=== PATIENT | male | born 1940 | race Caucasian/White ===

== ENCOUNTER 2016-09-12 12:03 | Outpatient (CLI) | payer MEDICARE, MEDICAID | END 2016-09-12 12:04 | disposition home or self-care (01) | DX: J98.11 Atelectasis (principal) ==

== ENCOUNTER 2016-10-17 08:00 | Outpatient (CLI) | payer MEDICARE, MEDICAID | END 2016-10-17 08:01 | disposition home or self-care (01) | DX: N39.41 Urge incontinence (principal) ==

== ENCOUNTER 2016-11-09 08:00 | Outpatient (CLI) | payer MEDICARE, MEDICAID | END 2016-11-09 23:59 | disposition home or self-care (01) | LOC: LAB.R 08:00 | PROVIDERS: ATTEND Nurse Practitioner Family | DX: L03.90 Cellulitis, unspecified (principal) | CPT/HCPCS: 87070; 87205 ==

== ENCOUNTER 2016-12-04 14:30 | Outpatient (CLI) | payer MEDICARE, MEDICAID ==
[2016-12-04 19:11] LABS: BASOPHILS % (AUTO) 0.2 %; EOSINOPHILS # (AUTO) 0.1 10^3/uL (0.0-0.7); EOSINOPHILS % (AUTO) 1.8 %; HCT - HEMATOCRIT 36.2 % (42.0-52.0); HGB - HEMOGLOBIN 11.2 g/dL (14.0-18.0); LYMPHOCYTES # (AUTO) 1.5 10^3/uL (1.5-3.5); LYMPHOCYTES % (AUTO) 20.8 %; MEAN CORPUSCULAR VOLUME 87.2 fL (80.0-94.0); MEAN PLATELET VOLUME 8.9 fL (7.4-11.4); MONOCYTES # (AUTO) 0.6 10^3/uL (0.0-1.0); MONOCYTES % (AUTO) 8.4 %; NEUTROPHILS # (AUTO) 5.1 10^3/uL (1.5-6.6); NEUTROPHILS % (AUTO) 68.8 %; NUCLEATED RED BLOOD CELLS AUTO 0.1 /100WBC; RED BLOOD COUNT 4.15 10^6/uL (4.70-6.10); RED CELL DISTRIBUTION WIDTH 17.5 % (12.0-15.0); UNCORRECTED WHITE BLOOD COUNT 7.4 x10^3/uL; WHITE BLOOD COUNT 7.4 x10^3/uL (4.8-10.8)
[2016-12-04 19:38] LABS: THYROID STIMULATING HORMONE 2.27 uIU/mL (0.34-5.60)
[2016-12-04 19:45] LABS: ALBUMIN/GLOBULIN RATIO 1.3 (1.0-2.2); BILIRUBIN,TOTAL 0.6 mg/dL (0.2-1.0); CALCIUM 8.4 mg/dL (8.5-10.3); CREATININE 1.9 mg/dL (0.6-1.2); POTASSIUM 5.2 mmol/L (3.5-5.0); TOTAL PROTEIN 6.5 g/dL (6.7-8.2)
[2016-12-04 19:58] LABS: HEMOGLOBIN A1C 0.63 g/dL
== END 2016-12-04 14:31 | disposition home or self-care (01) ==
LOC: LAB.S 14:30
PROVIDERS: ATTEND Nurse Practitioner Family
DX: R25.1 Tremor, unspecified (principal); N39.41 Urge incontinence; E10.51 Type 1 diabetes mellitus with diabetic peripheral angiopathy without gangrene; Z12.5 Encounter for screening for malignant neoplasm of prostate; L03.90 Cellulitis, unspecified
CPT/HCPCS: 36415; 80053; 82607; 83036; 83540; 84443; 84466; 85025; G0103; 81001; 84153; 87086

== ENCOUNTER 2016-12-14 09:43 | Outpatient (CLI) | payer MEDICARE, MEDICAID ==
[2016-12-14 17:37] LABS: BILIRUBIN,URINE NEGATIVE (NEGATIVE)
[2016-12-14 17:42] LABS: CALCIUM 8.7 mg/dL (8.5-10.3); CREATININE 1.9 mg/dL (0.6-1.2); POTASSIUM 5.1 mmol/L (3.5-5.0)
[2016-12-14 17:50] LABS: UR CULTURE IF IND NOT INDICATED; WBC,URINE 0-3 /HPF (0-3)
== END 2016-12-14 09:44 | disposition home or self-care (01) ==
LOC: LAB.F 09:43
PROVIDERS: ATTEND Nurse Practitioner Family
DX: N18.9 Chronic kidney disease, unspecified (principal); N39.41 Urge incontinence
CPT/HCPCS: 36415; 80048; 81001; 87086

== ENCOUNTER 2017-01-01 08:00 | Outpatient (CLI) | payer MEDICARE, MEDICAID ==
[2017-01-01 18:48] LABS: BASOPHILS % (AUTO) 0.5 %; EOSINOPHILS # (AUTO) 0.1 10^3/uL (0.0-0.7); HGB - HEMOGLOBIN 12.4 g/dL (14.0-18.0); LYMPHOCYTES # (AUTO) 1.9 10^3/uL (1.5-3.5); LYMPHOCYTES % (AUTO) 24.9 %; MEAN CORPUSCULAR VOLUME 90.4 fL (80.0-94.0); MEAN PLATELET VOLUME 8.6 fL (7.4-11.4); MONOCYTES # (AUTO) 0.6 10^3/uL (0.0-1.0); MONOCYTES % (AUTO) 8.7 %; NEUTROPHILS # (AUTO) 4.8 10^3/uL (1.5-6.6); NEUTROPHILS % (AUTO) 63.9 %; NUCLEATED RED BLOOD CELLS AUTO 0.2 /100WBC; RED BLOOD COUNT 4.42 10^6/uL (4.70-6.10); RED CELL DISTRIBUTION WIDTH 19.6 % (12.0-15.0); UNCORRECTED WHITE BLOOD COUNT 7.5 x10^3/uL; WHITE BLOOD COUNT 7.5 x10^3/uL (4.8-10.8)
[2017-01-01 19:52] LABS: CALCIUM 8.8 mg/dL (8.5-10.3); CREATININE 2.2 mg/dL (0.6-1.2); POTASSIUM 5.6 mmol/L (3.5-5.0)
== END 2017-01-01 08:01 | disposition home or self-care (01) ==
LOC: LAB.S 08:00
PROVIDERS: ATTEND Nurse Practitioner Family
DX: D64.9 Anemia, unspecified (principal); E87.5 Hyperkalemia
CPT/HCPCS: 36415; 80048; 82043; 83540; 84466; 85025

== ENCOUNTER 2017-01-08 08:00 | Outpatient (CLI) | payer MEDICARE, MEDICAID | END 2017-01-08 08:01 | disposition home or self-care (01) | LOC: LAB.S 08:00 | PROVIDERS: ATTEND Nurse Practitioner Family | DX: E87.5 Hyperkalemia (principal) | CPT/HCPCS: 36415 ==

== ENCOUNTER 2017-01-09 08:00 | Outpatient (CLI) | payer MEDICARE, MEDICAID | END 2017-01-09 08:01 | disposition home or self-care (01) | LOC: LAB.R 08:00 | PROVIDERS: ATTEND Nurse Practitioner Family | DX: S80.822A Blister (nonthermal), left lower leg, initial encounter (principal) | CPT/HCPCS: 87070; 87205 ==

== ENCOUNTER 2017-01-19 10:23 | Outpatient (CLI) | payer MEDICARE, MEDICAID ==
[2017-01-19 17:53] LABS: BASOPHILS % (AUTO) 0.4 %; EOSINOPHILS # (AUTO) 0.2 10^3/uL (0.0-0.7); EOSINOPHILS % (AUTO) 3.1 %; HCT - HEMATOCRIT 40.8 % (42.0-52.0); HGB - HEMOGLOBIN 12.9 g/dL (14.0-18.0); LYMPHOCYTES # (AUTO) 1.8 10^3/uL (1.5-3.5); LYMPHOCYTES % (AUTO) 24.7 %; MEAN CORPUSCULAR HEMOGLOBIN 27.8 pg (27.0-31.0); MEAN CORPUSCULAR HGB CONC 31.7 g/dL (32.0-36.0); MEAN CORPUSCULAR VOLUME 87.7 fL (80.0-94.0); MEAN PLATELET VOLUME 8.6 fL (7.4-11.4); MONOCYTES # (AUTO) 0.6 10^3/uL (0.0-1.0); MONOCYTES % (AUTO) 8.6 %; NEUTROPHILS # (AUTO) 4.5 10^3/uL (1.5-6.6); NEUTROPHILS % (AUTO) 63.2 %; RED BLOOD COUNT 4.65 10^6/uL (4.70-6.10); UNCORRECTED WHITE BLOOD COUNT 7.2 x10^3/uL; WHITE BLOOD COUNT 7.2 x10^3/uL (4.8-10.8)
[2017-01-19 18:45] LABS: BUN - BLOOD UREA NITROGEN 31 mg/dL (6-20); CALCIUM 8.9 mg/dL (8.5-10.3); CARBON DIOXIDE - CO2 32 mmol/L (21-32); CHLORIDE 101 mmol/L (101-111); CHOL/HDL RATIO 2.1 (<5.0); CHOLESTEROL 88 mg/dL; CREATININE 1.7 mg/dL (0.6-1.2); GFR - MDRD 39 (>89); GLUCOSE 128 mg/dL (70-100); HDL CHOLESTEROL 41 mg/dL; IRON 48 ug/dL (45-182); LDL/HDL RATIO 0.8 (<3.6); POTASSIUM 4.5 mmol/L (3.5-5.0); SODIUM 140 mmol/L (135-145); TOTAL IRON BINDING CAPACITY 337 ug/dL (250-450); TRANSFERRIN 241 mg/dL (180-329); TRIGLYCERIDES 80 mg/dL; URIC ACID 4.3 mg/dL (2.6-7.2); VLDL CHOLESTEROL 16 mg/dL
== END 2017-01-19 10:24 | disposition home or self-care (01) ==
LOC: LAB.F 10:23
PROVIDERS: ATTEND Nurse Practitioner Family
DX: E87.5 Hyperkalemia (principal); D64.9 Anemia, unspecified; I50.9 Heart failure, unspecified; E78.5 Hyperlipidemia, unspecified; R06.02 Shortness of breath; M10.9 Gout, unspecified
CPT/HCPCS: 36415; 80048; 80061; 83540; 83880; 84466; 84550; 85025

== ENCOUNTER 2017-01-30 15:26 | Outpatient (CLI) | payer MEDICARE, MEDICAID | END 2017-01-30 15:27 | disposition home or self-care (01) | LOC: RT.S 15:26 | PROVIDERS: ATTEND Internal Medicine Cardiovascular Disease | DX: I25.10 Atherosclerotic heart disease of native coronary artery without angina pectoris (principal) | CPT/HCPCS: 93005 ==

== ENCOUNTER 2017-02-07 10:35 | Outpatient (CLI) | payer MEDICARE, MEDICAID | END 2017-02-07 10:36 | disposition home or self-care (01) | LOC: DI 10:35 | PROVIDERS: ATTEND Internal Medicine Cardiovascular Disease | DX: I50.20 Unspecified systolic (congestive) heart failure (principal); I25.10 Atherosclerotic heart disease of native coronary artery without angina pectoris; R60.0 Localized edema; I51.7 Cardiomegaly; I48.91 Unspecified atrial fibrillation; Z79.899 Other long term (current) drug therapy | CPT/HCPCS: 36415; 80048; 83735; 93306 ==

== ENCOUNTER 2017-02-07 11:51 | Outpatient (CLI) | payer MEDICARE, MEDICAID ==
[2017-02-07 12:29] LABS: MAGNESIUM 1.4 mg/dL (1.7-2.8)
[2017-02-07 12:41] LABS: CALCIUM 8.9 mg/dL (8.5-10.3); CREATININE 2.2 mg/dL (0.6-1.2); POTASSIUM 4.4 mmol/L (3.5-5.0)
== END 2017-02-07 11:52 | disposition home or self-care (01) ==
LOC: LAB 11:51
PROVIDERS: ATTEND Internal Medicine Cardiovascular Disease
DX: I48.91 Unspecified atrial fibrillation (principal); I25.10 Atherosclerotic heart disease of native coronary artery without angina pectoris; I50.9 Heart failure, unspecified; Z79.899 Other long term (current) drug therapy
CPT/HCPCS: 36415; 80048; 83735

== ENCOUNTER 2017-02-19 13:23 | Outpatient (CLI) | payer MEDICARE, MEDICAID ==
--- NOTE | 2017-02-19 14:59 | XRAY Report ---
TWO-VIEW CHEST: 02/19/2017 CLINICAL INDICATION: Pulmonary hypertension. COMPARISON: 09/12/2016, 02/16/2012 FINDINGS: Frontal and lateral views of the chest demonstrate a mildly enlarged cardiac silhouette. Basilar linear opacities persist, compatible with atelectasis or scarring. No focal consolidation or pulmonary vascular congestion is seen. No effusion or pneumothorax is present. IMPRESSION: CARDIOMEGALY AND STABLE BASILAR SCARRING OR ATELECTASIS. JOB #: [id number] EXT JOB #:[id number]
== END 2017-02-19 13:24 | disposition home or self-care (01) ==
LOC: DI.S 13:23
PROVIDERS: ATTEND Internal Medicine Cardiovascular Disease
DX: I51.7 Cardiomegaly (principal)
CPT/HCPCS: 71020

== ENCOUNTER 2017-03-05 10:17 | Outpatient (CLI) | payer MEDICARE, MEDICAID | END 2017-03-05 10:18 | disposition home or self-care (01) | LOC: LAB.S 10:17 | PROVIDERS: ATTEND Internal Medicine | DX: I48.3 Typical atrial flutter (principal) | CPT/HCPCS: 85610 ==

== ENCOUNTER 2017-03-08 14:08 | Outpatient (CLI) | payer MEDICARE, MEDICAID | END 2017-03-08 14:09 | disposition home or self-care (01) | LOC: LAB.F 14:08 | PROVIDERS: ATTEND Internal Medicine | DX: I48.3 Typical atrial flutter (principal) | CPT/HCPCS: 85610 ==

== ENCOUNTER 2017-03-15 10:08 | Outpatient (CLI) | payer MEDICARE, MEDICAID ==
[2017-03-16 07:53] LABS: INR 1.5 (0.8-1.2); PT - PROTHROMBIN TIME 16.4 secs (9.9-12.6)
== END 2017-03-15 10:09 | disposition home or self-care (01) ==
LOC: LAB.F 10:08
PROVIDERS: ATTEND Internal Medicine
DX: I48.3 Typical atrial flutter (principal)
CPT/HCPCS: 36415; 85610

== ENCOUNTER 2017-03-19 08:00 | Outpatient (CLI) | payer MEDICARE, MEDICAID | END 2017-03-19 08:01 | disposition home or self-care (01) | LOC: LAB.S 08:00 | PROVIDERS: ATTEND Internal Medicine | DX: I48.3 Typical atrial flutter (principal) | CPT/HCPCS: 85610 ==

== ENCOUNTER 2017-03-26 10:37 | Outpatient (CLI) | payer MEDICARE, MEDICAID | END 2017-03-26 10:38 | LOC: LAB.S 10:37 | PROVIDERS: ATTEND Internal Medicine | DX: I48.3 Typical atrial flutter (principal) | CPT/HCPCS: 85610 ==

== ENCOUNTER 2017-04-02 08:00 | Outpatient (CLI) | payer MEDICARE, MEDICAID ==
[2017-04-02 18:12] LABS: BASOPHILS % (AUTO) 0.4 %; EOSINOPHILS # (AUTO) 0.1 10^3/uL (0.0-0.7); EOSINOPHILS % (AUTO) 1.9 %; HCT - HEMATOCRIT 39.4 % (42.0-52.0); HGB - HEMOGLOBIN 12.5 g/dL (14.0-18.0); LYMPHOCYTES # (AUTO) 1.7 10^3/uL (1.5-3.5); LYMPHOCYTES % (AUTO) 21.8 %; MEAN CORPUSCULAR HEMOGLOBIN 28.6 pg (27.0-31.0); MEAN CORPUSCULAR HGB CONC 31.7 g/dL (32.0-36.0); MEAN CORPUSCULAR VOLUME 90.2 fL (80.0-94.0); MEAN PLATELET VOLUME 8.5 fL (7.4-11.4); MONOCYTES # (AUTO) 0.7 10^3/uL (0.0-1.0); MONOCYTES % (AUTO) 9.4 %; NEUTROPHILS # (AUTO) 5.1 10^3/uL (1.5-6.6); NEUTROPHILS % (AUTO) 66.5 %; NUCLEATED RED BLOOD CELLS AUTO 0.2 /100WBC; RED BLOOD COUNT 4.36 10^6/uL (4.70-6.10); RED CELL DISTRIBUTION WIDTH 18.9 % (12.0-15.0); UNCORRECTED WHITE BLOOD COUNT 7.7 x10^3/uL; WHITE BLOOD COUNT 7.7 x10^3/uL (4.8-10.8)
[2017-04-02 18:31] LABS: ALBUMIN/GLOBULIN RATIO 1.1 (1.0-2.2); BILIRUBIN,TOTAL 0.6 mg/dL (0.2-1.0); BUN - BLOOD UREA NITROGEN 52 mg/dL (6-20); CALCIUM 8.3 mg/dL (8.5-10.3); CARBON DIOXIDE - CO2 29 mmol/L (21-32); CHLORIDE 99 mmol/L (101-111); CREATININE 2.1 mg/dL (0.6-1.2); GFR - MDRD 31 (>89); GLUCOSE 142 mg/dL (70-100); IRON 32 ug/dL (45-182); POTASSIUM 4.3 mmol/L (3.5-5.0); SODIUM 138 mmol/L (135-145); TOTAL IRON BINDING CAPACITY 255 ug/dL (250-450); TOTAL PROTEIN 6.6 g/dL (6.7-8.2); TRANSFERRIN 182 mg/dL (180-329)
[2017-04-02 19:26] LABS: HEMOGLOBIN A1C 0.71 g/dL
== END 2017-04-02 08:01 | disposition home or self-care (01) ==
LOC: LAB.S 08:00
PROVIDERS: ATTEND Internal Medicine
DX: I48.3 Typical atrial flutter (principal); D64.9 Anemia, unspecified; E10.21 Type 1 diabetes mellitus with diabetic nephropathy
CPT/HCPCS: 36415; 80053; 82043; 83036; 83540; 84443; 84466; 85025; 85610

== ENCOUNTER 2017-04-24 10:00 | Outpatient (CLI) | payer MEDICARE, MEDICAID | END 2017-04-24 10:01 | disposition home or self-care (01) | LOC: LAB.R 10:00 | PROVIDERS: ATTEND Nurse Practitioner Family | DX: E10.21 Type 1 diabetes mellitus with diabetic nephropathy (principal) | CPT/HCPCS: 82043 ==

== ENCOUNTER 2017-04-24 11:07 | Outpatient (CLI) | payer MEDICARE, MEDICAID | END 2017-04-24 11:08 | disposition home or self-care (01) | LOC: LAB.F 11:07 | PROVIDERS: ATTEND Internal Medicine | DX: I48.3 Typical atrial flutter (principal); E10.21 Type 1 diabetes mellitus with diabetic nephropathy | CPT/HCPCS: 82043; 85610 ==

== ENCOUNTER 2017-05-14 08:00 | Outpatient (CLI) | payer MEDICARE, MEDICAID | END 2017-05-14 08:01 | disposition home or self-care (01) | LOC: LAB.S 08:00 | PROVIDERS: ATTEND Internal Medicine | DX: I48.3 Typical atrial flutter (principal) | CPT/HCPCS: 85610 ==

== ENCOUNTER 2017-06-18 10:31 | Outpatient (CLI) | payer MEDICARE, MEDICAID ==
[2017-06-18 18:36] LABS: BASOPHILS % (AUTO) 0.3 %; EOSINOPHILS # (AUTO) 0.2 10^3/uL (0.0-0.7); EOSINOPHILS % (AUTO) 2.5 %; HGB - HEMOGLOBIN 12.1 g/dL (14.0-18.0); LYMPHOCYTES # (AUTO) 2.4 10^3/uL (1.5-3.5); LYMPHOCYTES % (AUTO) 31.1 %; MEAN CORPUSCULAR HEMOGLOBIN 29.4 pg (27.0-31.0); MEAN CORPUSCULAR HGB CONC 31.6 g/dL (32.0-36.0); MEAN PLATELET VOLUME 8.1 fL (7.4-11.4); MONOCYTES # (AUTO) 0.7 10^3/uL (0.0-1.0); MONOCYTES % (AUTO) 9.5 %; NEUTROPHILS # (AUTO) 4.3 10^3/uL (1.5-6.6); NEUTROPHILS % (AUTO) 56.6 %; PLT - PLATELET COUNT 165 10^3/uL (130-450); RED BLOOD COUNT 4.11 10^6/uL (4.70-6.10); RED CELL DISTRIBUTION WIDTH 17.7 % (12.0-15.0); WHITE BLOOD COUNT 7.6 x10^3/uL (4.8-10.8)
[2017-06-18 19:12] LABS: ALBUMIN 3.5 g/dL (3.2-5.5); ALBUMIN/GLOBULIN RATIO 1.2 (1.0-2.2); ALKALINE PHOSPHATASE 57 IU/L (42-121); ALT ALANINE AMINOTRANSFERASE 11 IU/L (10-60); AST ASPARTATE AMINOTRANSFERASE 17 IU/L (10-42); BILIRUBIN,TOTAL 0.4 mg/dL (0.2-1.0); BUN - BLOOD UREA NITROGEN 36 mg/dL (6-20); CALCIUM 8.5 mg/dL (8.5-10.3); CARBON DIOXIDE - CO2 28 mmol/L (21-32); CHLORIDE 99 mmol/L (101-111); CHOL/HDL RATIO 2.2 (<5.0); CHOLESTEROL 101 mg/dL; CREATININE 2.1 mg/dL (0.6-1.2); GFR - MDRD 31 (>89); HDL CHOLESTEROL 46 mg/dL; LDL CHOLESTEROL,CALCULATED 36 mg/dL; LDL/HDL RATIO 0.8 (<3.6); SODIUM 139 mmol/L (135-145); TOTAL PROTEIN 6.4 g/dL (6.7-8.2); VLDL CHOLESTEROL 19 mg/dL
[2017-06-18 19:15] LABS: GLUCOSE 56 mg/dL (70-100)
[2017-06-18 19:51] LABS: HB2 TOTAL 12.7 g/dL; HEMOGLOBIN A1C 0.6 g/dL; HEMOGLOBIN A1C % 6.5 % (4.6-6.2)
== END 2017-06-18 10:32 | disposition home or self-care (01) ==
LOC: LAB.S 10:31
PROVIDERS: ATTEND Nurse Practitioner Family
DX: E10.21 Type 1 diabetes mellitus with diabetic nephropathy (principal); I48.3 Typical atrial flutter
CPT/HCPCS: 36415; 80053; 80061; 83036; 85025; 85610

== ENCOUNTER 2017-07-09 08:00 | Outpatient (CLI) | payer MEDICARE, MEDICAID | END 2017-07-09 08:01 | disposition home or self-care (01) | LOC: LAB.S 08:00 | PROVIDERS: ATTEND Internal Medicine | DX: I48.3 Typical atrial flutter (principal) | CPT/HCPCS: 85610 ==

== ENCOUNTER 2017-08-13 09:53 | Outpatient (CLI) | payer MEDICARE, MEDICAID ==
[2017-08-13 17:39] LABS: BASOPHILS % (AUTO) 0.4 %; EOSINOPHILS # (AUTO) 0.2 10^3/uL (0.0-0.7); EOSINOPHILS % (AUTO) 3.4 %; HGB - HEMOGLOBIN 12.5 g/dL (14.0-18.0); LYMPHOCYTES # (AUTO) 2.3 10^3/uL (1.5-3.5); LYMPHOCYTES % (AUTO) 32.2 %; MEAN CORPUSCULAR HEMOGLOBIN 29.1 pg (27.0-31.0); MEAN CORPUSCULAR HGB CONC 31.5 g/dL (32.0-36.0); MEAN CORPUSCULAR VOLUME 92.4 fL (80.0-94.0); MEAN PLATELET VOLUME 8.3 fL (7.4-11.4); MONOCYTES # (AUTO) 0.6 10^3/uL (0.0-1.0); MONOCYTES % (AUTO) 9.1 %; NEUTROPHILS # (AUTO) 3.9 10^3/uL (1.5-6.6); NEUTROPHILS % (AUTO) 54.9 %; PLT - PLATELET COUNT 157 10^3/uL (130-450); RED BLOOD COUNT 4.28 10^6/uL (4.70-6.10); RED CELL DISTRIBUTION WIDTH 16.4 % (12.0-15.0)
[2017-08-13 18:14] LABS: ALBUMIN 3.7 g/dL (3.2-5.5); ALBUMIN/GLOBULIN RATIO 1.2 (1.0-2.2); ALKALINE PHOSPHATASE 61 IU/L (42-121); ALT ALANINE AMINOTRANSFERASE 11 IU/L (10-60); AST ASPARTATE AMINOTRANSFERASE 17 IU/L (10-42); BILIRUBIN,TOTAL 0.2 mg/dL (0.2-1.0); BUN - BLOOD UREA NITROGEN 39 mg/dL (6-20); CALCIUM 8.7 mg/dL (8.5-10.3); CARBON DIOXIDE - CO2 29 mmol/L (21-32); CHLORIDE 103 mmol/L (101-111); CHOL/HDL RATIO 2.2 (<5.0); CHOLESTEROL 104 mg/dL; CREATININE 1.8 mg/dL (0.6-1.2); GFR - MDRD 37 (>89); GLUCOSE 82 mg/dL (70-100); HDL CHOLESTEROL 48 mg/dL; LDL CHOLESTEROL,CALCULATED 33 mg/dL; LDL/HDL RATIO 0.7 (<3.6); SODIUM 139 mmol/L (135-145); TOTAL PROTEIN 6.9 g/dL (6.7-8.2); VLDL CHOLESTEROL 23 mg/dL
[2017-08-13 19:05] LABS: HB2 TOTAL 13.2 g/dL; HEMOGLOBIN A1C 0.61 g/dL; HEMOGLOBIN A1C % 6.4 % (4.6-6.2)
== END 2017-08-13 09:54 | disposition home or self-care (01) ==
LOC: LAB.S 09:53
PROVIDERS: ATTEND Nurse Practitioner Family
DX: E10.21 Type 1 diabetes mellitus with diabetic nephropathy (principal)
CPT/HCPCS: 36415; 80053; 80061; 83036; 83721; 85025

== ENCOUNTER 2017-11-07 12:15 | Outpatient (CLI) | payer MEDICARE, MEDICAID | END 2017-11-07 12:16 | LOC: LAB.R 12:15 | PROVIDERS: ATTEND Nurse Practitioner Family | DX: L97.229 Non-pressure chronic ulcer of left calf with unspecified severity (principal) | CPT/HCPCS: 87070; 87205 ==

== ENCOUNTER 2017-11-12 11:28 | Outpatient (CLI) | payer MEDICARE, MEDICAID ==
[2017-11-12 17:49] LABS: BASOPHILS % (AUTO) 0.3 %; EOSINOPHILS # (AUTO) 0.2 10^3/uL (0.0-0.7); EOSINOPHILS % (AUTO) 2.6 %; HGB - HEMOGLOBIN 12.6 g/dL (14.0-18.0); LYMPHOCYTES % (AUTO) 24.3 %; MEAN CORPUSCULAR HGB CONC 31.3 g/dL (32.0-36.0); MEAN CORPUSCULAR VOLUME 92.5 fL (80.0-94.0); MEAN PLATELET VOLUME 7.9 fL (7.4-11.4); MONOCYTES # (AUTO) 0.6 10^3/uL (0.0-1.0); MONOCYTES % (AUTO) 7.9 %; NEUTROPHILS # (AUTO) 5.2 10^3/uL (1.5-6.6); NEUTROPHILS % (AUTO) 64.9 %; PLT - PLATELET COUNT 169 10^3/uL (130-450); RED BLOOD COUNT 4.35 10^6/uL (4.70-6.10); RED CELL DISTRIBUTION WIDTH 15.6 % (12.0-15.0)
[2017-11-12 19:02] LABS: ALBUMIN 3.7 g/dL (3.2-5.5); ALBUMIN/GLOBULIN RATIO 1.3 (1.0-2.2); BILIRUBIN,TOTAL 0.5 mg/dL (0.2-1.0); CALCIUM 8.2 mg/dL (8.5-10.3); CREATININE 1.7 mg/dL (0.6-1.2); TOTAL PROTEIN 6.6 g/dL (6.7-8.2)
[2017-11-12 19:50] LABS: HB2 TOTAL 13.9 g/dL; HEMOGLOBIN A1C 0.65 g/dL; HEMOGLOBIN A1C % 6.4 % (4.6-6.2)
== END 2017-11-12 11:29 | disposition home or self-care (01) ==
LOC: LAB.S 11:28
PROVIDERS: ATTEND Nurse Practitioner Family
DX: E87.5 Hyperkalemia (principal); E10.21 Type 1 diabetes mellitus with diabetic nephropathy; R06.02 Shortness of breath
CPT/HCPCS: 36415; 80053; 83036; 83880; 85025

== ENCOUNTER 2018-03-18 09:47 | Outpatient (CLI) | payer MEDICARE, MEDICAID ==
[2018-03-18 18:01] LABS: ALBUMIN 3.5 g/dL (3.2-5.5); ALBUMIN/GLOBULIN RATIO 1.3 (1.0-2.2); ALKALINE PHOSPHATASE 62 IU/L (42-121); ALT ALANINE AMINOTRANSFERASE < 10 IU/L (10-60); AST ASPARTATE AMINOTRANSFERASE 17 IU/L (10-42); BILIRUBIN,TOTAL 0.5 mg/dL (0.2-1.0); BUN - BLOOD UREA NITROGEN 42 mg/dL (6-20); CALCIUM 8.3 mg/dL (8.5-10.3); CARBON DIOXIDE - CO2 32 mmol/L (21-32); CHLORIDE 97 mmol/L (101-111); CREATININE 1.9 mg/dL (0.6-1.2); GFR - MDRD 34 (>89); GLUCOSE 115 mg/dL (70-100); SODIUM 138 mmol/L (135-145); TOTAL PROTEIN 6.1 g/dL (6.7-8.2); URIC ACID 6.7 mg/dL (2.6-7.2)
[2018-03-18 19:17] LABS: HB2 TOTAL 14.6 g/dL; HEMOGLOBIN A1C 0.64 g/dL; HEMOGLOBIN A1C % 6.2 % (4.6-6.2)
== END 2018-03-18 09:48 | disposition home or self-care (01) ==
LOC: LAB.S 09:47
PROVIDERS: ATTEND Nurse Practitioner Family
DX: E10.51 Type 1 diabetes mellitus with diabetic peripheral angiopathy without gangrene (principal); R06.02 Shortness of breath; Z12.5 Encounter for screening for malignant neoplasm of prostate; M10.9 Gout, unspecified
CPT/HCPCS: 36415; 80053; 83036; 83880; 84550; G0103; 82043; 84153

== ENCOUNTER 2018-07-03 10:52 | Outpatient (CLI) | payer MEDICARE, MEDICAID | END 2018-07-03 10:53 | disposition home or self-care (01) | LOC: RT.S 10:52 | PROVIDERS: ATTEND Nurse Practitioner Family | DX: Z51.81 Encounter for therapeutic drug level monitoring (principal); Z79.891 Long term (current) use of opiate analgesic | CPT/HCPCS: 93005 ==

== ENCOUNTER 2018-07-29 08:00 | Outpatient (CLI) | payer MEDICARE, MEDICAID ==
[2018-07-29 18:09] LABS: ALBUMIN 3.9 g/dL (3.2-5.5); ALBUMIN/GLOBULIN RATIO 1.3 (1.0-2.2); ALKALINE PHOSPHATASE 64 IU/L (42-121); ALT ALANINE AMINOTRANSFERASE 11 IU/L (10-60); AST ASPARTATE AMINOTRANSFERASE 19 IU/L (10-42); BILIRUBIN,TOTAL 0.6 mg/dL (0.2-1.0); BUN - BLOOD UREA NITROGEN 45 mg/dL (6-20); CALCIUM 8.7 mg/dL (8.5-10.3); CARBON DIOXIDE - CO2 29 mmol/L (21-32); CHLORIDE 100 mmol/L (101-111); CHOL/HDL RATIO 2.5 (<5.0); CHOLESTEROL 114 mg/dL; CREATININE 1.8 mg/dL (0.6-1.2); GFR - MDRD 37 (>89); GLUCOSE 102 mg/dL (70-100); HDL CHOLESTEROL 46 mg/dL; LDL CHOLESTEROL,CALCULATED 48 mg/dL; SODIUM 140 mmol/L (135-145); VLDL CHOLESTEROL 20 mg/dL
[2018-07-29 18:52] LABS: HEMOGLOBIN A1C 0.79 g/dL; HEMOGLOBIN A1C % 6.4 % (4.6-6.2)
== END 2018-07-29 23:59 | disposition home or self-care (01) ==
LOC: LAB.S 08:00
PROVIDERS: ATTEND Nurse Practitioner Family
DX: E10.21 Type 1 diabetes mellitus with diabetic nephropathy (principal)
CPT/HCPCS: 36415; 80053; 80061; 82043; 83036; 83721

== ENCOUNTER 2019-01-13 | Outpatient (CLI) | payer MEDICARE, MEDICAID | END 2019-01-13 09:42 | disposition home or self-care (01) | DX: E10.51 Type 1 diabetes mellitus with diabetic peripheral angiopathy without gangrene (principal) ==

== ENCOUNTER 2019-03-24 11:53 | Outpatient (CLI) | payer MEDICARE, MEDICAID ==
[2019-03-24 17:24] LABS: CALCIUM 9.1 mg/dL (8.5-10.3); URIC ACID 10.3 mg/dL (2.6-7.2)
[2019-03-24 17:25] LABS: HGB - HEMOGLOBIN 13.7 g/dL (14.0-18.0); MEAN CORPUSCULAR HEMOGLOBIN 29.4 pg (27.0-31.0); MEAN CORPUSCULAR HGB CONC 30.4 g/dL (32.0-36.0); MEAN CORPUSCULAR VOLUME 96.8 fL (80.0-94.0); MEAN PLATELET VOLUME 10.3 fL (7.4-11.4); RED BLOOD COUNT 4.66 10^6/uL (4.70-6.10); RED CELL DISTRIBUTION WIDTH 13.9 % (12.0-15.0); WHITE BLOOD COUNT 8.4 x10^3/uL (4.8-10.8)
[2019-03-24 17:36] LABS: CREATININE,URINE 43.4 mg/dL
[2019-03-24 17:37] LABS: TOTAL PROTEIN,URINE TIMED < 6 mg/dL
== END 2019-03-24 11:54 | disposition home or self-care (01) ==
LOC: LAB.S 11:53
PROVIDERS: ATTEND Internal Medicine Nephrology
DX: N05.9 Unspecified nephritic syndrome with unspecified morphologic changes (principal); D70.9 Neutropenia, unspecified; D63.1 Anemia in chronic kidney disease; M10.00 Idiopathic gout, unspecified site; R80.9 Proteinuria, unspecified
CPT/HCPCS: 36415; 80048; 82570; 84156; 84550; 85027

== ENCOUNTER 2019-11-27 20:51 | Outpatient (CLI) | payer MEDICARE, MEDICAID | END 2019-11-27 23:59 | disposition critical access hospital (66) | LOC: EMS 20:51 | PROVIDERS: ATTEND Surgery | DX: R06.02 Shortness of breath (principal) | CPT/HCPCS: A0425; A0427 ==

== ENCOUNTER 2019-11-27 21:25 | Inpatient (IN) | payer MEDICARE, MEDICAID ==
--- NOTE | 2019-11-27 21:15 | ED Physician Documentation ---
History of Present Illness - Stated complaint Stated Complaint: SOA/COPD - History obtained from History obtained from: Patient (Patient is an 79-year-old male who is been home for the last 3 months with a history of COPD, chronic kidney disease. Today he presents with worsening shortness of breath he was 80% on arrival. Denies chest pain.Reports leg swelling.) Review of Systems Constitutional: reports: Reviewed and negative Eyes: reports: Reviewed and negative Ears: reports: Reviewed and negative Nose: reports: Reviewed and negative Throat: reports: Reviewed and negative Cardiac: reports: Pedal edema Respiratory: reports: Dyspnea GI: reports: Reviewed and negative : reports: Reviewed and negative Skin: reports: Reviewed and negative Musculoskeletal: reports: Reviewed and negative Neurologic: reports: Reviewed and negative Psychiatric: reports: Reviewed and negative Endocrine: reports: Reviewed and negative Immunocompromised: reports: Reviewed and negative PD PAST MEDICAL HISTORY - Present Medications Home Medications: Ambulatory Orders Medication Instructions Recorded Confirmed Acetaminophen/Cod 300/30 [Tylenol 1 each PO Q4-6H PRN 08/11/14 11/27/19 #3] Aspirin [Children's Aspirin] 81 mg PO DAILY 08/11/14 11/27/19 Atorvastatin [Lipitor] 20 mg PO DAILY 08/11/14 11/27/19 Brimonidine Tartrate [Alphagan P] 2 drops OP DAILY 08/11/14 11/27/19 Calcium Citrate/Vitamin D3 1 each PO DAILY 08/11/14 11/27/19 [Calcium Citrate - Vit D Tablet] Enalapril Maleate [Vasotec] 20 mg PO DAILY 08/11/14 11/27/19 Fluoxetine HCl [Prozac] 40 mg PO DAILY 08/11/14 11/27/19 Insulin Aspart [Novolog] 35 - 45 units SQ AC 08/11/14 11/27/19 Insulin Glargine [Lantus] 35 units SQ BID 08/11/14 11/27/19 Latanoprost 2.5 ml OP DAILY 08/11/14 11/27/19 Methadone HCl [Dolophine HCl] 20 mg PO DAILY 08/11/14 11/27/19 Metoprolol Tartrate [Lopressor] 12.5 mg PO DAILY 08/11/14 11/27/19 Omeprazole [Prilosec] 20 mg PO DAILY 08/11/14 11/27/19 allopurinoL [Allopurinol] 50 mg PO DAILY 08/11/14 11/27/19 amLODIPine [Norvasc] 5 mg PO DAILY 08/11/14 11/27/19 Albuterol Sulfate [Albuterol 2 puffs INH Q4H PRN 11/19/19 11/27/19 Sulfate Hfa] Furosemide [Lasix] 20 mg PO QPM 11/19/19 11/27/19 Furosemide [Lasix] 40 mg PO DAILY 11/19/19 11/27/19 Pregabalin [Lyrica] 100 mg PO TID 11/19/19 11/27/19 Umeclidinium Brm/Vilanterol Tr 1 puffs INH DAILY 11/19/19 11/27/19 [Anoro Ellipta 62.5-25 Mcg INH] - Allergies Allergies/Adverse Reactions: Allergies Allergy/AdvReac Type Severity Reaction Status Date / Time No Known Drug Allergies Allergy Verified 11/27/19 21:32 PD ED PE NORMAL - Vitals Vital signs reviewed: Yes - General General: No acute distress, Well developed/nourished, Other (On oxygen on arrival) - HEENT HEENT: Atraumatic, PERRL - Neck Neck: Supple, no meningeal sign - Cardiac Cardiac: RRR, No murmur, Strong equal pulses - Respiratory Respiratory: Other (Crackles at the bases bilaterally minimal wheezing in bilateral lung amato) - Abdomen Abdomen: Normal bowel sounds, Soft, Non tender, Non distended, No organomegaly, Other (Obese, no midline abdominal pulsatile mass) - Back Back: No CVA TTP, No spinal TTP - Derm Derm: Normal color, Warm and dry, No rash, Other (2+ bilateral lower extremity pitting edema) - Extremities Extremities: No deformity, Other (2+ bilateral lower extremity pitting edema) - 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, No motor deficit, No sensory deficit, Normal speech - Psych Psych: Normal mood, Normal affect Results - Vitals Vitals: Vital Signs - 24 hr 11/27/19 11/27/19 11/27/19 21:32 21:36 22:11 Temperature 36.9 C Heart Rate 88 88 90 Respiratory 18 18 14 Rate Blood Pressure 144/75 H 144/75 H O2 Saturation 100 100 11/27/19 22:27 Temperature Heart Rate 86 Respiratory 16 Rate Blood Pressure 135/92 H O2 Saturation 100 Oxygen O2 Source Nasal cannula Oxygen Flow Rate 4 - EKG (time done) 21:28 Rate: Other (no stemi) - Labs Labs: Laboratory Tests 11/27/19 11/27/19 11/27/19 22:37 22:37 22:37 WBC 7.8 RBC 3.82 L Hgb 10.2 L Hct 34.2 L MCV 89.5 MCH 26.7 L MCHC 29.8 L RDW 16.1 H Plt Count 152 MPV 11.2 Neut # (Auto) 5.9 Lymph # (Auto) 1.1 L [place] # (Auto) 0.5 Eos # (Auto) 0.1 Baso # (Auto) 0.0 Absolute Nucleated RBC 0.00 Nucleated RBC % 0.0 PT 13.6 H INR 1.2 APTT 34.8 H Sodium 141 Potassium 5.7 H Chloride 107 Carbon Dioxide 27 Anion Gap 7.0 BUN 68 H Creatinine 2.4 H Estimated GFR (MDRD) 26 L Glucose 119 H Lactic Acid Calcium 8.1 L Phosphorus 4.7 H Magnesium 1.8 Total Bilirubin 0.6 AST 28 ALT 24 Alkaline Phosphatase 61 Total Creatine Kinase 162 Troponin I High Sens B-Natriuretic Peptide Total Protein 6.9 Albumin 4.0 Globulin 2.9 Albumin/Globulin Ratio 1.4 Lipase 38 TSH Ethyl Alcohol < 5.0 11/27/19 11/27/19 11/27/19 22:37 22:37 22:37 WBC RBC Hgb Hct MCV MCH MCHC RDW Plt Count MPV Neut # (Auto) Lymph # (Auto) [place] # (Auto) Eos # (Auto) Baso # (Auto) Absolute Nucleated RBC Nucleated RBC % PT INR APTT Sodium Potassium Chloride Carbon Dioxide Anion Gap BUN Creatinine Estimated GFR (MDRD) Glucose Lactic Acid 0.5 Calcium Phosphorus Magnesium Total Bilirubin AST ALT Alkaline Phosphatase Total Creatine Kinase Troponin I High Sens 8.8 B-Natriuretic Peptide 746 H Total Protein Albumin Globulin Albumin/Globulin Ratio Lipase TSH Ethyl Alcohol 11/27/19 22:37 WBC RBC Hgb Hct MCV MCH MCHC RDW Plt Count MPV Neut # (Auto) Lymph # (Auto) [place] # (Auto) Eos # (Auto) Baso # (Auto) Absolute Nucleated RBC Nucleated RBC % PT INR APTT Sodium Potassium Chloride Carbon Dioxide Anion Gap BUN Creatinine Estimated GFR (MDRD) Glucose Lactic Acid Calcium Phosphorus Magnesium Total Bilirubin AST ALT Alkaline Phosphatase Total Creatine Kinase Troponin I High Sens B-Natriuretic Peptide Total Protein Albumin Globulin Albumin/Globulin Ratio Lipase TSH 1.98 Ethyl Alcohol PD MEDICAL DECISION MAKING - ED course Complexity details: reviewed results, re-evaluated patient, considered differential (COPD, CHF, renal failure), d/w patient, d/w family, other (Patient was noted to be hyperkalemia he had an episode of bradycardia in the ER patient was treated with bicarb, insulin, calcium and glucose, Lasix.Patient will be admitted.) - Consults Consults: Discussed case with (dr. martinez. hospitalist. will admit.) - Critical Care Time(min): 30 Time Includes: Direct patient care, Review records, Reassess patient, Document care, Coordinate care, Medical consult Data interpretation: Labs, CXR, Prior EKG Procedures included in critical care time: Peripheral IV Procedures excluded from critical care time: EKG Departure - Departure Disposition: 66 [facility] DC/Xfer Clinical Impression: Mild chronic obstructive pulmonary disease, Acute kidney injury, Hyperkalemia, Bradycardia Congestive heart failure Qualifiers: Heart failure type: other Qualified Code(s): I50.9 - Heart failure, unspecified Condition: Stable Discharge Date/Time: 11/28/19 00:23
[2019-11-27] MEDS ORDERED: predniSONE 20 MG TABLET PO STA (21:50)
[2019-11-27] MEDS ORDERED: ALBUTEROL 1 PUFF INH STA (21:54)
[2019-11-27 22:43] LABS: BASOPHILS % (AUTO) 0.3 %; EOSINOPHILS # (AUTO) 0.1 10^3/uL (0.0-0.7); EOSINOPHILS % (AUTO) 1.7 %; HGB - HEMOGLOBIN 10.2 g/dL (14.0-18.0); LYMPHOCYTES # (AUTO) 1.1 10^3/uL (1.5-3.5); LYMPHOCYTES % (AUTO) 14.3 %; MEAN CORPUSCULAR HEMOGLOBIN 26.7 pg (27.0-31.0); MEAN CORPUSCULAR HGB CONC 29.8 g/dL (32.0-36.0); MEAN CORPUSCULAR VOLUME 89.5 fL (80.0-94.0); MEAN PLATELET VOLUME 11.2 fL (7.4-11.4); MONOCYTES # (AUTO) 0.5 10^3/uL (0.0-1.0); MONOCYTES % (AUTO) 6.2 %; NEUTROPHILS # (AUTO) 5.9 10^3/uL (1.5-6.6); NEUTROPHILS % (AUTO) 76.5 %; PLT - PLATELET COUNT 152 10^3/uL (130-450); RED BLOOD COUNT 3.82 10^6/uL (4.70-6.10); RED CELL DISTRIBUTION WIDTH 16.1 % (12.0-15.0); WHITE BLOOD COUNT 7.8 x10^3/uL (4.8-10.8)
[2019-11-27 22:48] LABS: INR 1.2 (0.8-1.2); PT - PROTHROMBIN TIME 13.6 secs (9.9-12.6)
[2019-11-27 22:55] LABS: PARTIAL THROMBOPLASTIN TIME 34.8 secs (24.9-33.3)
[2019-11-27 23:08] LABS: ALBUMIN/GLOBULIN RATIO 1.4 (1.0-2.2); ALKALINE PHOSPHATASE 61 IU/L (42-121); ALT ALANINE AMINOTRANSFERASE 24 IU/L (10-60); AST ASPARTATE AMINOTRANSFERASE 28 IU/L (10-42); BILIRUBIN,TOTAL 0.6 mg/dL (0.2-1.0); BUN - BLOOD UREA NITROGEN 68 mg/dL (6-20); CALCIUM 8.1 mg/dL (8.5-10.3); CARBON DIOXIDE - CO2 27 mmol/L (21-32); CHLORIDE 107 mmol/L (101-111); CK- CREATINE KINASE 162 IU/L (22-269); CREATININE 2.4 mg/dL (0.6-1.2); GLUCOSE 119 mg/dL (70-100); LIPASE 38 U/L (22-51); MAGNESIUM 1.8 mg/dL (1.7-2.8); PHOSPHORUS 4.7 mg/dL (2.5-4.6); SODIUM 141 mmol/L (135-145); TOTAL PROTEIN 6.9 g/dL (6.7-8.2)
[2019-11-27] MEDS ORDERED: CALCIUM GLUCONATE 1,000 MG in SODIUM CHLORIDE 0.9% 50 ML IV STA (23:13)
[2019-11-27] MEDS ORDERED: SODIUM BICARBONATE ABBOJECT 50 MEQ/50 ML SYRINGE IVP STA (23:14)
[2019-11-27] MEDS ORDERED: INSULIN REGULAR HUMAN 100 UNIT/1 ML 10 ML MDV SUBQ STA (23:30)
[2019-11-27] MEDS ORDERED: DEXTROSE 50% ABBOJECT 25 GM/50 ML SYRINGE IVP STA (23:31)
[2019-11-27] MEDS ORDERED: FUROSEMIDE 40 MG/4 ML VIAL IVP STA (23:39)
[2019-11-27] MEDS ORDERED: SODIUM CHLORIDE FLUSH 0.9% 10 ML SYRINGE IVP PRN (23:48)
--- NOTE | 2019-11-27 23:53 | HISTORY & PHYSICAL EXAMINATION ---
Chief Complaint - Chief Complaint Chief Complaint: dyspnea History of Present Illness - Admitted From [facility]:: [facility] ED - History Obtained From Records Reviewed: yes History obtained from: patient - History of Present Illness HPI Comment/Other: Patient is an 79-year-old male with medical history significant for CHF, COPD, diabetes mellitus, hypertension, chronic back pain, depression, GERD who presented to the ED with complaint of dyspnea which started tonight. When EMS presented to his house he was found to have an oxygen saturation of 80 on room air. He does not use oxygen at home. As a result of his difficulty in breath ing he was also having difficulty sleeping. He normally uses his inhaler 3 times a day however today he used it 5 times with no relief. He was brought to the ED where he received some steroids and breathing treatments and initially experienced improvement in his respiratory status. However further work-up showed a potassium of 5.7, creatinine of 2.4 and BNP of 746. Also chest x-ray showed mild pulmonary edema. As a result he was presented for admission for further treatment. At the time of my exam patient appeared to be resting comfortably in bed. He seemed somewhat somnolent but was readily arousable and answers questions. He denied chest pain, coughing, wheezing, abdominal pain, fever or chills. He was on 2 L of oxygen via nasal cannula with an oxygen saturation of 98%. He had a 2+ lower extremity edema. He lives at home with his partner. He also has a caregiver who comes to the house 3 days a week. He normally walks on his own but mostly uses the gardner for support. History - Past Medical History Cardiovascular: reports: Hypertension, High cholesterol, Coronary artery disease, [place], Other Respiratory: reports: COPD Endocrine/Autoimmune: reports: Type 2 diabetes GI: reports: GERD, Hiatal hernia : reports: Renal insuffiency Psych: reports: Depression Musculoskeletal: reports: Chronic back pain - Past Surgical History Cardiovascular: reports: Other Other past surgical history: Patient denied any surgical history - Family & Social History Family History: Mother: , Father: Family History Comment/Other: Mother from an MVA. Father from emphysema. Patient has no siblings Living arrangement: At home Living Situation: With spouse/s.o. Social History Notes: Patient lives at home with his partner. He denies alco hol, tobacco or illicit drug use. - POLST Patient has POLST: No POLST Status: Full Code Meds/Allgy - Home Medications Home Medications: Ambulatory Orders Medication Instructions Recorded Confirmed Acetaminophen/Cod 300/30 [Tylenol 1 each PO Q4-6H PRN 08/11/14 11/27/19 #3] Aspirin [Children's Aspirin] 81 mg PO DAILY 08/11/14 11/27/19 Atorvastatin [Lipitor] 20 mg PO DAILY 08/11/14 11/27/19 Brimonidine Tartrate [Alphagan P] 2 drops OP DAILY 08/11/14 11/27/19 Calcium Citrate/Vitamin D3 1 each PO DAILY 08/11/14 11/27/19 [Calcium Citrate - Vit D Tablet] Enalapril Maleate [Vasotec] 20 mg PO DAILY 08/11/14 11/27/19 Fluoxetine HCl [Prozac] 40 mg PO DAILY 08/11/14 11/27/19 Insulin Aspart [Novolog] 35 - 45 units SQ AC 08/11/14 11/27/19 Insulin Glargine [Lantus] 35 units SQ BID 08/11/14 11/27/19 Latanoprost 2.5 ml OP DAILY 08/11/14 11/27/19 Methadone HCl [Dolophine HCl] 20 mg PO DAILY 08/11/14 11/27/19 Metoprolol Tartrate [Lopressor] 12.5 mg PO DAILY 08/11/14 11/27/19 Omeprazole [Prilosec] 20 mg PO DAILY 08/11/14 11/27/19 allopurinoL [Allopurinol] 50 mg PO DAILY 08/11/14 11/27/19 amLODIPine [Norvasc] 5 mg PO DAILY 08/11/14 11/27/19 Albuterol Sulfate [Albuterol 2 puffs INH Q4H PRN 11/19/19 11/27/19 Sulfate Hfa] Furosemide [Lasix] 20 mg PO QPM 11/19/19 11/27/19 Furosemide [Lasix] 40 mg PO DAILY 11/19/19 11/27/19 Pregabalin [Lyrica] 100 mg PO TID 11/19/19 11/27/19 Umeclidinium Brm/Vilanterol Tr 1 puffs INH DAILY 11/19/19 11/27/19 [Anoro Ellipta 62.5-25 Mcg INH] - Allergies Allergies/Adverse Reactions: Allergies Allergy/AdvReac Type Severity Reaction Status Date / Time No Known Drug Allergies Allergy Verified 11/27/19 21:32 Review of Systems - Constitutional Constitutional: reports: Weakness. denies: Fever, Chills - Eyes Eyes: denies: Pain - Ears, Nose & Throat Ears, Nose & Throat: denies: Vertigo - Cardiovascular Cariovascular: reports: Edema. denies: Irregular heart rate, Palpitations, Chest pain - Respiratory Respiratory: reports: Wheezing, SOB at rest, SOB with exertion. denies: Cough, Sputum production - Gastrointestinal Gastrointestinal: reports: Other (obese abdomen). denies: Abdominal pain, Abdominal distention, Constipation, Nausea, Vomiting, Reflux/heartburn - Genitourinary Genitourinary: denies: Dysuria, Frequency, Urgency, Hematuria - Musculoskeletal Musculoskeletal: reports: Back pain. denies: Muscle pain, Muscle aches - Integumentary Integumentary: denies: Rash, Pruritis - Neurological Neurological: denies: Focal weakness, Headache, Dizziness - Psychiatric Psychiatric: denies: Depression, Anxiety - Endocrine Endocrine: denies: Polyuria, Polydypsia - Hematologic/Lymphatic Hematologic/Lymphatic: denies: Anemia, Bruising, Petechiae Prior Level of Functionality: He lives at home with his partner. He also has a palliative care physician who comes 3 times a week. He normally walks on his own but mostly uses the gardner for support. On a good day he labs working at the computer, listening to audiobooks and or reading books. Exam - Vital Signs Vital Signs: Vital Signs x48h Temp Pulse Resp BP Pulse Ox 11/27/19 22:27 86 16 135/92 H 100 11/27/19 22:11 90 14 11/27/19 21:36 88 18 144/75 H 100 11/27/19 21:32 36.9 C 88 18 144/75 H 100 - Physical Exam General Appearance: positive: Alert, Mild distress Eyes Bilateral: positive: PERRL, EOMI ENT: positive: No signs of dehydration Neck: positive: No JVD, Trachea midline Respiratory: positive: Chest non-tender, No respiratory distress, Breath sounds nml Cardiovascular: positive: Regular rate & rhythm Abdomen: positive: Non-tender, Nml bowel sounds, No distention. negative: Guarding, Rebound Back: positive: Nml inspection Skin: positive: Color nml, Warm Extremities: positive: Pedal edema Neurologic/Psychiatric: positive: Oriented x3, Mood/affect nml Conclusion/Plan - Problem List (1) CHF exacerbation Conclusion/Plan: Patient given Lasix 40 mg IV x1 in the ED. We will continue Lasix 20 mg IV twice daily. Daily weights. 2D echo ordered for the morning. Patient takes blood pressure at home. Will resume once verified. Fluid restriction. Qualifiers: Heart failure type: unspecified Qualified Code(s): I50.9 - Heart failure, unspecified (2) Acute kidney injury Conclusion/Plan: Acute on chronic. Suspect this is related to heart failure. Patient receiving Lasix 20 mg IV twice daily. Expect improvement. Will monitor. (3) Hyperkalemia Conclusion/Plan: Mild. Patient received insulin, Lasix, albuterol and calcium gluconate in the ED. Will recheck potassium in the morning and address accordingly. (4) Hypertension Conclusion/Plan: Patient on amlodipine, enalapril and metoprolol at home. Will resume once verified. (5) Diabetes mellitus Conclusion/Plan: Patient takes Lantus 35 units subcu twice daily. Accucheks and Sliding scale insulin ordered. We will check hemoglobin A1c. Qualifiers: Diabetes mellitus type: type 2 (6) Hyperlipidemia Conclusion/Plan: On atorvastatin. Will resume once verified. (7) Depression Conclusion/Plan: On fluoxetine (8) GERD (gastroesophageal reflux disease) Conclusion/Plan: Protonix ordered (9) Diabetic neuropathy Conclusion/Plan: On gabapentin (10) COPD (chronic obstructive pulmonary disease) Conclusion/Plan: Not in exacerbation. Will order breathing treatment as needed. (11) Chronic back pain Conclusion/Plan: On methadone - Lab Results Fish Bones: 11/27/19 22:37 11/27/19 22:37 Core Measures - Anticipated LOS I expect patient to be DC'd or transferred within 96 hours.: Yes - DVT/VTE - Prophylaxis VTE/DVT Device ordered at admit?: Yes VTE/DVT Prophylaxis med ordered at admit?: Yes
[2019-11-28 04:48] LABS: BASOPHILS % (AUTO) 0.2 %; EOSINOPHILS % (AUTO) 0.2 %; HGB - HEMOGLOBIN 9.9 g/dL (14.0-18.0); LYMPHOCYTES # (AUTO) 0.6 10^3/uL (1.5-3.5); LYMPHOCYTES % (AUTO) 10.3 %; MEAN CORPUSCULAR HEMOGLOBIN 26.5 pg (27.0-31.0); MEAN CORPUSCULAR HGB CONC 29.5 g/dL (32.0-36.0); MEAN CORPUSCULAR VOLUME 90.1 fL (80.0-94.0); MEAN PLATELET VOLUME 10.5 fL (7.4-11.4); MONOCYTES # (AUTO) 0.1 10^3/uL (0.0-1.0); MONOCYTES % (AUTO) 1.3 %; NEUTROPHILS # (AUTO) 5.4 10^3/uL (1.5-6.6); NEUTROPHILS % (AUTO) 87.2 %; PLT - PLATELET COUNT 146 10^3/uL (130-450); RED BLOOD COUNT 3.73 10^6/uL (4.70-6.10); RED CELL DISTRIBUTION WIDTH 16.3 % (12.0-15.0); WHITE BLOOD COUNT 6.1 x10^3/uL (4.8-10.8)
[2019-11-28 05:00] LABS: CALCIUM 8.2 mg/dL (8.5-10.3); CREATININE 2.4 mg/dL (0.6-1.2)
[2019-11-28 05:16] LABS: HB2 TOTAL 10.2 g/dL; HEMOGLOBIN A1C 0.5 g/dL; HEMOGLOBIN A1C % 6.6 % (4.6-6.2)
[2019-11-28] MEDS: FUROSEMIDE 20 MG/2 ML VIAL IVP SCH ×2 (07:09→14:40)
[2019-11-28] MEDS: SODIUM CHLORIDE FLUSH 0.9% 10 ML SYRINGE IVP SCH ×3 (07:10→17:11)
[2019-11-28] MEDS ORDERED: SODIUM POLYSTYRENE SULFONATE 15 GM/60 ML BOTTLE PO ONE (07:30)
[2019-11-28] MEDS ORDERED: DEXTROSE 10% 250 ML IV ONE (08:00)
[2019-11-28] MEDS ORDERED: INSULIN REGULAR HUMAN 300 UNIT/3 ML VIAL IVP ONE (08:00)
[2019-11-28] MEDS: INSULIN ASPART 300 UNIT/3 ML PEN SUBQ SCH ×4 (08:04→21:01)
[2019-11-28] MEDS: HEPARIN 5,000 UNIT/ML VIAL SUBQ SCH ×2 (08:14→21:02)
[2019-11-28] MEDS: PANTOPRAZOLE 40 MG TABLET PO SCH (08:15)
[2019-11-28] MEDS ORDERED: ACETAMINOPHEN/CODEINE 300 MG/30 MG TABLET PO PRN (08:15)
[2019-11-28] MEDS ORDERED: ALBUTEROL NEB 2.5 MG/3 ML INH PRN (08:18)
[2019-11-28] MEDS ORDERED: IPRATROPIUM/ALBUTEROL 3 ML NEB INH PRN (08:18)
--- NOTE | 2019-11-28 08:24 | XRAY Report ---
PROCEDURE: Chest 1 View X-Ray INDICATIONS: sob TECHNIQUE: One view of the chest was acquired. COMPARISON: Chest x-ray 02/19/2017 FINDINGS: Surgical changes and devices: Presumed pacer/monitor is noted overlying the inferior cardiac shadow. Lungs and pleura: Mild appearance of increased vascularity is present. Chronic interstitial scarring and potentially fibrosis is present. Left upper lobe is obscured for evaluation secondary to overlyin g monitor lead. Mediastinum: Mediastinal contours appear normal. Heart size is enlarged. Metallic density is noted overlying the cardiac shadow. Bones and chest wall: No suspicious bony lesions. Overlying soft tissues appear unremarkable. IMPRESSION: 1. Mild appearance of increased vascularity suggestive of edema. 2. Chronic interstitial changes are present suggestive of fibrosis. 3. Limited evaluation of the left upper lobe, secondary to overlying monitor lead. If this area remai ns of concern, repeat view is recommended. 4. Metallic density overlying the cardiac silhouette. Recommend correlation to external object. The above findings are concordant with preliminary report. Reviewed by: Jazmine Linares MD on 11/28/2019 8:23 AM PDT Approved by: Jazmine Linares MD on 11/28/2019 8:23 AM PDT Station ID: [id number]
[2019-11-28] MEDS: INSULIN GLARGINE 300 UNIT/3 ML PEN SUBQ SCH (09:36)
[2019-11-28] MEDS: PREGABALIN 100 MG CAPSULE PO SCH ×3 (09:37→21:01)
[2019-11-28] MEDS: METHADONE 5 MG TABLET PO SCH (09:37)
[2019-11-28] MEDS: ASPIRIN CHEW 81 MG TABLET PO SCH (09:37)
--- NOTE | 2019-11-28 11:05 | PHARMACY PROGRESS NOTE ---
- Best Possible Medication History Admit Date and Time: 11/27/19 8122 Processed by: Nursing Medication History completed: Yes As the person ultimately responsible for medication therapy, providers are able to order a medication from an existing home medication list in [facility] via the "Reconcile Routine" prior to Confirmation of that medication by legal support manager. Such practice is discouraged except when the physician, in their clinical judgment, deems that a medical need exists for a medication without regard to previous use.
[2019-11-28] MEDS ORDERED: traZODone 50 MG TABLET PO PRN (14:12)
[2019-11-28] MEDS ORDERED: SODIUM CHLORIDE 0.9% 500 ML IV ONE (14:41)
[2019-11-28] MEDS ORDERED: FUROSEMIDE 20 MG/2 ML VIAL IVP SCH (14:46)
--- NOTE | 2019-11-28 14:51 | PROVIDER PROGRESS NOTE ---
Assessment/Plan - Problem List (1) CHF exacerbation Qualifiers: Heart failure type: unspecified Qualified Code(s): I50.9 - Heart failure, unspecified Assessment/Plan: 619, patient had Echo on 07/18/2016 which showed preserved EF at 60% but with mod erate diastolic heart failure.We will have echo for patient, pending on now. Continue Lasix 20 intravenous twice daily If patient's blood pressure tolerated. We will continue patient home lisinopril, enalapril and metoprolol if patient tolerated (2) Acute kidney injury 11/27, patient has chronic CKD stage III, patient has increased creatinine, now at stage IV, it might be caused by acute on chronic heart failure. Continue diuretics, continue lab monitor (3) Hyperkalemia Conclusion/Plan: Improved, potassium 5.3 now, patient is diabetic and will have insulin, and will continue check potassium level (4) Hypertension Conclusion/Plan: Patient blood pressure is a slightly low now, will hold patient home blood pressure medicine, continue vital signs monitor. (5) Diabetes mellitus Conclusion/Plan: Patient A1c is 6.6, will continue sliding scale, we will add adjustable Lantus as needed, patient takes 35 Lantus twice daily in the home but we will adjust both as needed. (6) Hyperlipidemia Conclusion/Plan: resume atorvastatin. Will resume once verified. (7) Depression Conclusion/Plan: resume fluoxetine (8) GERD (gastroesophageal reflux disease) Conclusion/Plan: Protonix ordered (9) Diabetic neuropathy Conclusion/Plan: resume gabapentin (10) COPD (chronic obstructive pulmonary disease) Conclusion/Plan: 11/27 Patient has 94% sats on 3 liter of oxygen, the patient did not show respiratory distress, we will resume home breathing treatment as needed, Supplement of oxygen as needed (11) Chronic back pain Conclusion/Plan: resume methadone (12)glaucoma stable, will resume home meds - Current Meds Current Meds: Current Medications Generic Name Dose Route Start Last Admin Trade Name Freq PRN Reason Stop Dose Admin Aspirin 81 mg 11/28/19 09:00 11/28/19 09:37 [facility] Aspirin PO 81 mg DAILY LUIZA Administration Heparin Sodium (Porcine) 5,000 unit 11/28/19 09:00 11/28/19 08:14 SUBQ 5,000 unit BID LUIZA Administration Sodium Chloride 500 mls @ 999 mls/hr 11/28/19 14:41 11/28/19 14:46 Normal Saline 0.9% IV 11/28/19 15:11 999 mls/hr ONCE ONE Administration Insulin Aspart 3 - 11 unit 11/28/19 08:00 11/28/19 11:57 Novolog SUBQ 3 unit 0800,1200,1700,2100 LUIZA Administration Protocol Insulin Glargine 5 unit 11/28/19 09:00 11/28/19 09:36 Lantus Solostar SUBQ 5 unit QDBREAKFAST LUIZA Administration Methadone HCl 20 mg 11/28/19 09:00 11/28/19 09:37 PO 20 mg DAILY LUIZA Administration Pantoprazole Sodium 40 mg 11/28/19 08:00 11/28/19 08:15 Protonix PO 40 mg QDAC LUIZA Administration Pregabalin 100 mg 11/28/19 09:00 11/28/19 14:40 Lyrica PO Not Given TID LUIZA Sodium Chloride 10 ml 11/27/19 23:48 11/28/19 07:10 Normal Saline Flush 0.9% IVP 10 ml PRN PRN Administration NEEDED PER PROVIDER ORDERS Sodium Chloride 10 ml 11/28/19 01:00 11/28/19 08:05 Normal Saline Flush 0.9% IVP 10 ml 0100,0900,1700 LUIZA Administration - Lab Result Fish Bone Diagrams: 11/28/19 04:30 11/28/19 13:55 - Additional Planning My Orders: My Active Orders 11/28/19 08:06 PHOSPHORUS [CHEM] Urgent 11/28/19 08:15 Acetaminophen/Cod 300/30 [Tylenol #3] 1 tab PO Q4H PRN 11/28/19 08:18 Nebulizer/MDI Tx. [RC] .Q4 PRN Resp Teach Nebulizer/MDI [RC] .ONCE Albuterol 2.5 mg INH RTQ4H PRN Ipratropium/Albuterol [Duoneb] 3 ml INH RTQID PRN 11/28/19 09:00 Aspirin Chewable [[facility] Aspirin] 81 mg PO DAILY Insulin Glargine [Lantus Solostar] 5 unit SUBQ QDBREAKFAST Methadone 20 mg PO DAILY Pregabalin [Lyrica] 100 mg PO TID 06/19/20 14:12 traZODone [Desyrel] 75 mg PO QPM PRN 11/28/19 14:41 Sodium Chloride 0.9% [Normal Saline 0.9%] 500 ml IV ONCE 11/28/19 14:46 FUROSEMIDE INJ 20mg VIAL [LASIX INJ 20mg VIAL] 20 mg IVP BIDDIURETIC 11/28/19 21:00 Brimonidine 0.15% Ophth Drops [Alphagan P 0.15% Ophth Drops] 1 drops EACHEYE BID Latanoprost 0.005% Ophth Drops [Xalatan Ophth Drops] 1 drops EACHEYE QPM guaiFENesin [Mucinex] 600 mg PO BID 11/29/19 09:00 FLUoxetine [PROzac] 40 mg PO DAILY Subjective - Subjective Patient Reports: Feeling Better Objective Vital Signs: Vital Signs - 24 hr 11/27/19 11/27/19 11/27/19 21:32 21:36 22:11 Temperature 36.9 C Heart Rate 88 88 90 Heart Rate [ Brachial] Respiratory 18 18 14 Rate Blood Pressure 144/75 H 144/75 H Blood Pressure [Right Brachial artery] O2 Saturation 100 100 11/27/19 11/27/19 11/28/19 22:27 23:55 00:20 Temperature Heart Rate 86 84 94 Heart Rate [ Brachial] Respiratory 16 14 14 Rate Blood Pressure 135/92 H 92/46 L 142/81 H Blood Pressure [Right Brachial artery] O2 Saturation 100 96 98 11/28/19 11/28/19 11/28/19 01:22 05:40 06:11 Temperature 36.7 C 36.5 C 36.5 C Heart Rate 58 L Heart Rate [ 86 58 L Brachial] Respiratory 18 18 18 Rate Blood Pressure Blood Pressure 146/76 H 97/79 [Right Brachial artery] O2 Saturation 98 98 11/28/19 11/28/19 11/28/19 08:00 09:00 13:00 Temperature 36.3 C L 36.3 C L Heart Rate Heart Rate [ 68 66 57 L Brachial] Respiratory 14 16 16 Rate Blood Pressure Blood Pressure 120/95 H 120/95 H 87/40 L [Right Brachial artery] O2 Saturation 98 98 94 Oxygen O2 Source Nasal cannula Oxygen Flow Rate 4 I&O (Last 24 Hrs): Intake and Output Totals x24h 11/26/19 11/27/19 11/28/19 23:59 23:59 23:59 Intake Total 680 Output Total 100 Balance 580 General: Alert, No acute distress HEENT: Atraumatic Neck: Supple Lymphatic: no adenopathy Neuro: Alert, Non Focal Cardiovascular: Normal S1, Normal S2 Respiratory: Chest non-tender, No respiratory distress Abdomen: Normal bowel sounds, Soft, No tenderness Extremities: Normal pulses - Results Results: Laboratory Results WBC 6.1 x10^3/uL (4.8-10.8) 11/28/19 04:30 RBC 3.73 10^6/uL (4.70-6.10) L 11/28/19 04:30 Hgb 9.9 g/dL (14.0-18.0) L 11/28/19 04:30 Hct 33.6 % (42.0-52.0) L 11/28/19 04:30 MCV 90.1 fL (80.0-94.0) 11/28/19 04:30 MCH 26.5 pg (27.0-31.0) L 11/28/19 04:30 MCHC 29.5 g/dL (32.0-36.0) L 11/28/19 04:30 RDW 16.3 % (12.0-15.0) H 11/28/19 04:30 Plt Count 146 10^3/uL (130-450) 11/28/19 04:30 MPV 10.5 fL (7.4-11.4) 11/28/19 04:30 Neut # (Auto) 5.4 10^3/uL (1.5-6.6) 11/28/19 04:30 Lymph # (Auto) 0.6 10^3/uL (1.5-3.5) L 11/28/19 04:30 [place] # (Auto) 0.1 10^3/uL (0.0-1.0) 11/28/19 04:30 Eos # (Auto) 0.0 10^3/uL (0.0-0.7) 11/28/19 04:30 Baso # (Auto) 0.0 10^3/uL (0.0-0.1) 11/28/19 04:30 Absolute Nucleated RBC 0.02 x10^3/uL 11/28/19 04:30 Nucleated RBC % 0.3 /100WBC 11/28/19 04:30 PT 13.6 secs (9.9-12.6) H 11/27/19 22:37 INR 1.2 (0.8-1.2) 11/27/19 22:37 APTT 34.8 secs (24.9-33.3) H 11/27/19 22:37 Sodium 141 mmol/L (135-145) 11/28/19 04:30 Potassium 5.3 mmol/L (3.5-5.0) H 11/28/19 13:55 Chloride 108 mmol/L (101-111) 11/28/19 04:30 Carbon Dioxide 27 mmol/L (21-32) 11/28/19 04:30 Anion Gap 6.0 (6-13) 11/28/19 04:30 BUN 67 mg/dL (6-20) H 11/28/19 04:30 Creatinine 2.4 mg/dL (0.6-1.2) H 11/28/19 04:30 Estimated GFR (MDRD) 26 (>89) L 11/28/19 04:30 Glucose 145 mg/dL (70-100) H 11/28/19 04:30 Glycated Hemoglobin 6.6 % (4.6-6.2) H 11/28/19 04:30 Estim Average Glucose 143 (70-100) H 11/28/19 04:30 Lactic Acid 0.5 mmol/L (0.5-2.2) 11/27/19 22:37 Calcium 8.2 mg/dL (8.5-10.3) L 11/28/19 04:30 Phosphorus 4.7 mg/dL (2.5-4.6) H 11/27/19 22:37 Magnesium 1.8 mg/dL (1.7-2.8) 11/27/19 22:37 Total Bilirubin 0.6 mg/dL (0.2-1.0) 11/27/19 22:37 AST 28 IU/L (10-42) 11/27/19 22:37 ALT 24 IU/L (10-60) 11/27/19 22:37 Alkaline Phosphatase 61 IU/L (42-121) 11/27/19 22:37 Total Creatine Kinase 162 IU/L (22-269) 11/27/19 22:37 Troponin I High Sens 7.7 ng/L (2.3-19.7) 11/28/19 11:05 B-Natriuretic Peptide 746 pg/mL (5-100) H 11/27/19 22:37 Total Protein 6.9 g/dL (6.7-8.2) 11/27/19 22:37 Albumin 4.0 g/dL (3.2-5.5) 11/27/19 22:37 Globulin 2.9 g/dL (2.1-4.2) 11/27/19 22:37 Albumin/Globulin Ratio 1.4 (1.0-2.2) 11/27/19 22:37 Lipase 38 U/L (22-51) 11/27/19 22:37 TSH 1.98 uIU/mL (0.34-5.60) 11/27/19 22:37 Ethyl Alcohol < 5.0 mg/dL 11/27/19 22:37 Sepsis Event Note (H) - Evaluation Current Stage of Sepsis: Ruled out ABX Reporting Has patient been on IV antibiotics over the past 48 hours?: No Current Medications - Current Medications Current Medications: Active Medications Acetaminophen/Codeine Phosphate (Tylenol #3) 1 tab PO Q4H PRN PRN Reason: PAIN Albuterol () 2.5 mg INH RTQ4H PRN PRN Reason: Wheezing Albuterol/Ipratropium (Duoneb) 3 ml INH RTQID PRN PRN Reason: Shortness of Air/Wheezing Aspirin ([facility] Aspirin) 81 mg PO DAILY [facility] Last Admin: 11/28/19 09:37 Dose: 81 mg Documented by: Brimonidine Tartrate (Alphagan P 0.15% Ophth Drops) 1 drops EACHEYE BID [facility] Fluoxetine HCl (Prozac) 40 mg PO DAILY LUIZA Furosemide (Lasix Inj 20mg Vial) 20 mg IVP BIDDIURETIC LUIZA Guaifenesin (Mucinex) 600 mg PO BID [facility] Heparin Sodium (Porcine) () 5,000 unit SUBQ BID [facility] Last Admin: 11/28/19 08:14 Dose: 5,000 unit Documented by: Sodium Chloride (Normal Saline 0.9%) 500 mls @ 999 mls/hr IV ONCE ONE Stop: 11/28/19 15:11 Last Admin: 11/28/19 14:46 Dose: 999 mls/hr Documented by: Insulin Aspart (Novolog) 3 - 11 unit SUBQ 0800,1200,1700,2100 [facility]; Protocol Last Admin: 11/28/19 11:57 Dose: 3 unit Documented by: Insulin Glargine (Lantus Solostar) 5 unit SUBQ QDBREAKFAST [facility] Last Admin: 11/28/19 09:36 Dose: 5 unit Documented by: Latanoprost (Xalatan Ophth Drops) 1 drops EACHEYE QPM [facility] Methadone HCl () 20 mg PO DAILY [facility] Last Admin: 11/28/19 09:37 Dose: 20 mg Documented by: Pantoprazole Sodium (Protonix) 40 mg PO QDAC [facility] Last Admin: 11/28/19 08:15 Dose: 40 mg Documented by: Pregabalin (Lyrica) 100 mg PO TID [facility] Last Admin: 11/28/19 14:40 Dose: Not Given Documented by: Sodium Chloride (Normal Saline Flush 0.9%) 10 ml IVP PRN PRN PRN Reason: NEEDED PER PROVIDER ORDERS Last Admin: 11/28/19 07:10 Dose: 10 ml Documented by: Sodium Chloride (Normal Saline Flush 0.9%) 10 ml IVP 0100,0900,1700 [facility] Last Admin: 11/28/19 08:05 Dose: 10 ml Documented by: Trazodone HCl (Desyrel) 75 mg PO QPM PRN PRN Reason: Insomnia Acetaminophen/Cod 300/30 [Tylenol #3] 1 each PO Q4-6H PRN 08/11/14 Aspirin [Children's Aspirin] 81 mg PO DAILY 08/11/14 Atorvastatin [Lipitor] 10 mg PO DAILY 08/11/14 Brimonidine Tartrate [Alphagan P] 1 drops EACHEYE BID 08/11/14 Calcium Citrate/Vitamin D3 [Calcium Citrate - Vit D Tablet] 1 each PO DAILY 08/11/14 Enalapril Maleate [Vasotec] 5 mg PO DAILY 08/11/14 Fluoxetine HCl [Prozac] 40 mg PO DAILY 08/11/14 Insulin Aspart [Novolog] 35 - 45 units SQ AC 08/11/14 Insulin Glargine [Lantus] 35 units SQ BID 08/11/14 Latanoprost 1 drops EACHEYE QPM 08/11/14 Methadone HCl [Dolophine HCl] 5 mg PO BID 08/11/14 Omeprazole [Prilosec] 20 mg PO DAILY 08/11/14 allopurinoL [Allopurinol] 100 mg PO DAILY 08/11/14 amLODIPine [Norvasc] 5 mg PO DAILY 08/11/14 Albuterol Sulfate [Albuterol Sulfate Hfa] 2 puffs INH Q4H PRN 11/19/19 Furosemide [Lasix] 20 mg PO QPM 11/19/19 Furosemide [Lasix] 40 mg PO DAILY 11/19/19 Pregabalin [Lyrica] 100 mg PO TID 11/19/19 Umeclidinium Brm/Vilanterol Tr [Anoro Ellipta 62.5-25 Mcg INH] 1 puffs INH DAILY 11/19/19 Metoprolol Succinate [Toprol Xl] 50 mg PO DAILY 11/28/19 traZODone [Desyrel] 75 mg PO QPM PRN 11/28/19
--- NOTE | 2019-11-28 20:09 | ADVANCE CARE PLANNING NOTE ---
Advance Care Planning - Planning Encounter Date: 11/28/19 Time: 01:00 Purpose: Establish goals of care Parties in Attendance: Patient alone Decisional Capacity of the Patient: Patient is currently capable of making decisions regarding his medical care on his own - Diagnosis for Encounter (1) CHF exacerbation Qualifiers: Heart failure type: unspecified Qualified Code(s): I50.9 - Heart failure, unspecified (5) Diabetes mellitus Qualifiers: Diabetes mellitus type: type 2 - Encounter Subjective/Patient's Story: Patient is an 79-year-old male with significant medical comorbidities which include Coronary artery disease, CHF, COPD, diabetes mellitus, hypertension, chronic back pain, depression and GERD. He presented to the ED via EMS with dyspnea. He was found to have an oxygen saturation of 80% on room air. He is being treated for CHF exacerbation, acute kidney injury on chronic kidney disease, hyperkalemia and COPD. At bedside the patient was somewhat somnolent but arousable to verbal stimuli and would readily respond appropriately to questions asked. He lives with his partner. He gets around walking without any walking aid however he uses the gardner for support. He also has a caregiver who comes 3 days in the week to assist with activities of daily living. Goals of Care: Patient's primary goal is to be well enough to go back home. At the time of this visit he expressed that he is currently very happy with his life. On a normal day at home he surfs the Internet gathering knowledge. He expressed finding niya in learning new things even at his age. 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 He would very much like to go back home so that he can continue doing these things. Plan: Diuresis with Lasix IV. Fluid restriction. 2D echo. Insulin and dextrose for hyperkalemia. Kayexalate for hyperkalemia. Physical therapy and Occupational Therapy for evaluation, recommendations and treatment. Continue treating chronic conditions. Additional Discussion: The above plan was discussed with patient who expressed understanding and was in agreement. Patient expresses that for the sake of his loved ones he would want to maintain a full code status. In the event that he become incapacitated and is unable to make medical decisions for himself he would want his partner Campbell Vaughan to make decisions for him Code Status: Attempt Resuscitation Time spent on advance care plannin minutes
[2019-11-28] MEDS ORDERED: LATANOPROST 0.005% OPHTH DROPS EACHEYE SCH (21:00)
[2019-11-28] MEDS: guaiFENesin 600 MG TABLET PO SCH (21:01)
[2019-11-28] MEDS: BRIMONIDINE 0.15% OPHTH DROPS 5 ML EACHEYE SCH (21:14)
[2019-11-29] MEDS: SODIUM CHLORIDE FLUSH 0.9% 10 ML SYRINGE IVP SCH ×3 (00:26→17:35)
[2019-11-29 05:19] LABS: BASOPHILS % (AUTO) 0.3 %; EOSINOPHILS # (AUTO) 0.1 10^3/uL (0.0-0.7); EOSINOPHILS % (AUTO) 1.4 %; HGB - HEMOGLOBIN 9.4 g/dL (14.0-18.0); LYMPHOCYTES # (AUTO) 1.4 10^3/uL (1.5-3.5); LYMPHOCYTES % (AUTO) 15.3 %; MEAN CORPUSCULAR HEMOGLOBIN 25.4 pg (27.0-31.0); MEAN CORPUSCULAR VOLUME 91.1 fL (80.0-94.0); MEAN PLATELET VOLUME 10.6 fL (7.4-11.4); MONOCYTES # (AUTO) 0.9 10^3/uL (0.0-1.0); MONOCYTES % (AUTO) 10.7 %; NEUTROPHILS # (AUTO) 6.3 10^3/uL (1.5-6.6); NEUTROPHILS % (AUTO) 71.5 %; PLT - PLATELET COUNT 159 10^3/uL (130-450); RED CELL DISTRIBUTION WIDTH 16.2 % (12.0-15.0); WHITE BLOOD COUNT 8.8 x10^3/uL (4.8-10.8)
[2019-11-29 05:36] LABS: CALCIUM 7.9 mg/dL (8.5-10.3); CREATININE 3.5 mg/dL (0.6-1.2)
[2019-11-29] MEDS ORDERED: FUROSEMIDE 20 MG TABLET PO SCH (06:00)
[2019-11-29] MEDS ORDERED: SODIUM CHLORIDE 0.9% 500 ML IV ONE (06:37)
[2019-11-29] MEDS ORDERED: CALCIUM GLUCONATE 2,000 MG in SODIUM CHLORIDE 0.9% 100ML 100 ML IV ONE (06:41)
[2019-11-29] MEDS ORDERED: DEXTROSE 10% 250 ML IV STA (06:41)
[2019-11-29] MEDS ORDERED: INSULIN REGULAR HUMAN 300 UNIT/3 ML VIAL IVP ONE (06:42)
[2019-11-29] MEDS: PANTOPRAZOLE 40 MG TABLET PO SCH (06:42)
[2019-11-29] MEDS: PREGABALIN 100 MG CAPSULE PO SCH (06:43)
[2019-11-29] MEDS ORDERED: SODIUM CHLORIDE 0.9% 1,000 ML IV SCH (07:00)
[2019-11-29 07:39] LABS: BILIRUBIN,URINE NEGATIVE (NEGATIVE); GLUCOSE, URINE (UA) NEGATIVE (NEGATIVE); KETONES,URINE (UA) NEGATIVE (NEGATIVE); LEUKOCYTE ESTERASE, URINE NEGATIVE (NEGATIVE); NITRITE,URINE NEGATIVE (NEGATIVE); OCCULT BLOOD,URINE NEGATIVE (NEGATIVE); PH,URINE 5.5 PH (5.0-7.5); PROTEIN,URINE NEGATIVE (NEGATIVE); UROBILINOGEN,URINE 0.2 (NORMAL) E.U./dL (NORMAL)
[2019-11-29 07:46] LABS: CLARITY,URINE CLEAR (CLEAR)
[2019-11-29] MEDS ORDERED: SODIUM POLYSTYRENE SULFONATE 15 GM/60 ML BOTTLE PO SCH (08:13)
[2019-11-29] MEDS ORDERED: FLUoxetine 10 MG CAPSULE PO SCH (09:00)
[2019-11-29] MEDS ORDERED: lisinopriL 5 MG TABLET PO SCH (09:00)
[2019-11-29] MEDS: INSULIN ASPART 300 UNIT/3 ML PEN SUBQ SCH ×3 (09:03→17:35)
[2019-11-29] MEDS: METHADONE 5 MG TABLET PO SCH (09:09)
[2019-11-29] MEDS: guaiFENesin 600 MG TABLET PO SCH (09:09)
[2019-11-29] MEDS: INSULIN GLARGINE 300 UNIT/3 ML PEN SUBQ SCH (09:10)
[2019-11-29] MEDS: ASPIRIN CHEW 81 MG TABLET PO SCH (09:10)
[2019-11-29] MEDS: BRIMONIDINE 0.15% OPHTH DROPS 5 ML EACHEYE SCH (09:10)
[2019-11-29] MEDS: HEPARIN 5,000 UNIT/ML VIAL SUBQ SCH (09:11)
[2019-11-29 09:52] LABS: MEAN CORPUSCULAR HGB CONC 29.2 g/dL (32.0-36.0); PLATELET ESTIMATE, MANUAL NORMAL (130-450,000) (NORMAL); PLATELET MORPHOLOGY NORMAL APPEARANCE (NORMAL); RBC MORPHOLOGY (MULTIPLE) 1+ HYPOCHR (NORMAL)
--- NOTE | 2019-11-29 12:01 | Ultrasound Report ---
PROCEDURE: Retroperitoneal INDICATIONS: BRENDON, urinary obstruction? TECHNIQUE: Real-time scanning was performed of the retroperitoneal organs, with image documentation. COMPARISON: None. FINDINGS: Kidneys: Kidneys are normal in size. Right kidney measures 12.3 cm long; left kidney measures 10.4 cm long. Right renal cortical thickness is 0.9 cm; left renal cortical thickness is 1.0 cm. Trace am ount of bilateral perinephric fluid is seen. 3 x 6 mm nonobstructing stone is seen in midpole of righ t kidney. 1.6 x 1.8 x 1.1 cm septated cyst is seen in lower pole of left kidney. No gross solid-appea ring renal lesion. No hydronephrosis. Partially distended urinary bladder measures 12 mL in prevoid volume. No gross bladder wall abnormali ty is seen. IMPRESSION: 1. Small nonobstructing stone in mid pole of right kidney. Septated cyst in lower pole of left kidney . No hydronephrosis. No gross solid-appearing renal lesion. 2. Mild bilateral renal cortical thinning. 3. No gross abnormality is seen in partially distended urinary bladder. Reviewed by: Ludwig Peters MD on 11/29/2019 11:59 AM PDT Approved by: Ludwig Peters MD on 11/29/2019 11:59 AM PDT Station ID: [id number]
[2019-11-29] MEDS ORDERED: NYSTATIN POWDER 15 GM TOP SCH (14:18)
[2019-11-29 15:29] LABS: ALBUMIN 3.7 g/dL (3.2-5.5); ALBUMIN/GLOBULIN RATIO 1.4 (1.0-2.2); BILIRUBIN,TOTAL 0.6 mg/dL (0.2-1.0); CREATININE 3.9 mg/dL (0.6-1.2); TOTAL PROTEIN 6.4 g/dL (6.7-8.2)
--- NOTE | 2019-11-29 18:11 | DISCHARGE SUMMARY ---
Discharge Summary Admit Date: 11/27/19 Discharge Date: 11/29/19 Discharging Provider: Eugene Canseco Primary Care Provider: Anthony Cristobal Code Status: Attempt Resuscitation Condition at Discharge: Poor Discharge Disposition: 02 Transfer Acute Care Hosp Discharge Facility Name: [facility] - DIAGNOSES Admission Diagnoses: (1) CHF exacerbation (2) Acute kidney injury (3) Hyperkalemia (4) Hypertension (5) Diabetes mellitus (6) Hyperlipidemia (7) Depression (8) GERD (gastroesophageal reflux disease) (9) Diabetic neuropathy (10) COPD (chronic obstructive pulmonary disease) (11) Chronic back pain Discharge Diagnoses with Status of Each Condition: (1) CHF exacerbation pt was admitted for dyspnea. Patient had echo done at hospital which showed patient has severe diastolic heart failure with RVSP 74 mmHg and 50-55% EF. Patient has also over 700 BNP with mild pulmonary edema at the admission. patient cannot tolerate diuretics even give low dosage 20 mg bid IV of Lasix, patient blood pressure was drop, also patient's creatinine and BUN increased when pt had low dosage 20 mg bid of Lasix. report to [facility] for high level of care, pt is accepted. pt may need dialysis to remove of his over-loaded fluid. (2) Acute kidney injuryflui Patient's creatinine continue increases from 2.4 to 3 .5 to 3.9 even patient was given with intravenous IV fluids at 83.3cc/l. Ultrasound of retroperitoneum showed patient kidney was unremarkable without obstruction. patient has severe right heart failure with fluid over-loaded, pulmonary edema with reduced respiratory O2 sats, and hyperkalemia, and continue worsening of kidney function, And pt has oligourea since this morning, patient may need de icer kit assembler consult and might need dialysis. we do not have de icer kit assembler and dialysis facility. patient was reported to the [facility]. patient was accepted for high level of the care. (3) Hyperkalemia Patient continue to have hyperkalemia even Patient was give insulin and kayexalate. if pt continue worsening this condition, Patient may need dialysis, patient was transferred to [facility] for higher level care. (4) Hypertension Stable (5) Diabetes mellitus A1c 6.6, patient has insulin taken at home (6) Hyperlipidemia Chronic (7) Depression Chronic and stable (8) GERD (gastroesophageal reflux disease) Chronic (9) Diabetic neuropathy Chronic and stable (10) COPD (chronic obstructive pulmonary disease) Stable/Chronic (12)glaucoma Chronic and stable (13)tremor Chronic. - HPI History of Present Illness: refer Dr. Syed's HPI on 11/27/2019 Patient is an 79-year-old male with medical history significant for CHF, COPD, diabetes mellitus, hypertension, chronic back pain, depression, GERD who presented to the ED with complaint of dyspnea which started tonight. When EMS presented to his house he was found to have an oxygen saturation of 80 on room air. He does not use oxygen at home. As a result of his difficulty in breathing he was also having difficulty sleeping. He normally uses his inhaler 3 times a day however today he used it 5 times with no relief. He was brought to the ED where he received some steroids and breathing treatments and initially experienced improvement in his respiratory status. However further work-up showed a potassium of 5.7, creatinine of 2.4 and BNP of 746. Also chest x-ray showed mild pulmonary edema. As a result he was presented for admission for further treatment. At the time of my exam patient appeared to be resting comfortably in bed. He seemed somewhat somnolent but was readily arousable and answers questions. He denied chest pain, coughing, wheezing, abdominal pain, fever or chills. He was on 2 L of oxygen via nasal cannula with an oxygen saturation of 98%. He had a 2+ lower extremity edema. He lives at home with his partner. He also has a caregiver who comes to the house 3 days a week. He normally walks on his own but mostly uses the gardner for support. - HOSPITAL COURSE Hospital Course: Patient was admitted for dyspnea. Patient denies fever or chilling, patient has no cough. Chest x-ray show mild pulmonary edema with fibrosis. Patient was found to have fluids overloaded, patient BNP is over 700. Echo Show patient has severe right heart failure. Patient was found to have BRENDON acute kidney injury. Initially pt was given 20 mg bid IV of Lasix for acute on chronic patient heart failure. But the patient cannot tolerate the diuretics Lasix. Patient blood pressure is drop. Then pt was given 500 ml NS bolus. Also patient kidney function is worsening, creatinine increased to 3.9 from 2.4 at admission. Then pt's lasix was stopped and started with IVF at 83.3 cc/h by asphalt still operator. But pt's kidney function continue worsening. Patient was also found to have hyperkalemia. Patient continue to have hyperkalemia and was not response well to insulin and Kayexalate. Ultrasound of retroperitoneum is unremarkable without obstruction. Patient also become oligourea since this morning. Patient may need dialysis. I reported this condition to [facility] medical provider, [facility] accepted patient for high level of care. - ALLERGIES Allergies/Adverse Reactions: Allergies Allergy/AdvReac Type Severity Reaction Status Date / Time No Known Drug Allergies Allergy Verified 11/27/19 21:32 - MEDICATIONS Home Medications: Ambulatory Orders Medication Instructions Recorded Confirmed Acetaminophen/Cod 300/30 [Tylenol 1 each PO Q4-6H PRN 08/11/14 11/27/19 #3] Aspirin [Children's Aspirin] 81 mg PO DAILY 08/11/14 11/27/19 Atorvastatin [Lipitor] 10 mg PO DAILY 08/11/14 11/28/19 Brimonidine Tartrate [Alphagan P] 1 drops EACHEYE BID 08/11/14 11/28/19 Calcium Citrate/Vitamin D3 1 each PO DAILY 08/11/14 11/27/19 [Calcium Citrate - Vit D Tablet] Enalapril Maleate [Vasotec] 5 mg PO DAILY 08/11/14 11/28/19 Fluoxetine HCl [Prozac] 40 mg PO DAILY 08/11/14 11/27/19 Insulin Aspart [Novolog] 35 - 45 units SQ AC 08/11/14 11/27/19 Insulin Glargine [Lantus] 35 units SQ BID 08/11/14 11/27/19 Latanoprost 1 drops EACHEYE QPM 08/11/14 11/28/19 Methadone HCl [Dolophine HCl] 5 mg PO BID 08/11/14 11/28/19 Omeprazole [Prilosec] 20 mg PO DAILY 08/11/14 11/27/19 allopurinoL [Allopurinol] 100 mg PO DAILY 08/11/14 11/28/19 amLODIPine [Norvasc] 5 mg PO DAILY 08/11/14 11/27/19 Albuterol Sulfate [Albuterol 2 puffs INH Q4H PRN 11/19/19 11/27/19 Sulfate Hfa] Furosemide [Lasix] 20 mg PO QPM 11/19/19 11/27/19 Furosemide [Lasix] 40 mg PO DAILY 11/19/19 11/27/19 Pregabalin [Lyrica] 100 mg PO TID 11/19/19 11/27/19 Umeclidinium Brm/Vilanterol Tr 1 puffs INH DAILY 11/19/19 11/27/19 [Anoro Ellipta 62.5-25 Mcg INH] Metoprolol Succinate [Toprol Xl] 50 mg PO DAILY 11/28/19 11/28/19 traZODone [Desyrel] 75 mg PO QPM PRN 11/28/19 11/28/19 - PHYSICAL EXAM AT DISCHARGE General Appearance: positive: No acute distress, Alert. negative: Lethargic Eyes Bilateral: positive: Normal inspection, PERRL, No lid inflammation ENT: positive: ENT inspection nml, Pharynx nml, No signs of dehydration. negative: Purulent nasal drainage Neck: positive: Nml inspection, Thyroid nml, No JVD, Trachea midline. negative: Thyromegaly, Stiff neck, Tracheal deviation Respiratory: positive: Chest non-tender, No respiratory distress. negative: Wheezes, Rales Cardiovascular: positive: Regular rate & rhythm, No murmur. negative: Irregularly irregular, Tachycardia, Bradycardia, Systolic murmur, Diastolic murmur Peripheral Pulses: positive: 2+ Abdomen: positive: Non-tender, No organomegaly, Nml bowel sounds, No distention. negative: Tenderness, Guarding, Rebound Back: positive: Nml inspection. negative: CVA tenderness (R), CVA tenderness (L) Skin: positive: Color nml, No rash, Warm, Dry. negative: Cyanosis, Diaphoresis, Pallor Extremities: positive: Non-tender, Nml appearance. negative: Calf tenderness, Bushra's sign/cords Neurologic/Psychiatric: positive: Oriented x3, Sensation nml. negative: Weakness, Sensory loss, Facial droop, Depressed mood/affect - LABS Result Diagrams: 11/29/19 04:40 11/29/19 15:03 - SEPSIS Current Stage of Sepsis: Ruled out - FOLLOW UP Follow Up: patient was transferred to the [facility] for higher level of care - TIME SPENT Time Spent in Discharge (Minutes): 30
[2019-11-29] MEDS ORDERED: MAGNESIUM HYDROXIDE 2,400 MG/30 ML UDC PO PRN (18:48)
[2019-11-29 20:37] VITALS: BP 121/41
[2019-11-29] MEDS ORDERED: PREGABALIN 100 MG CAPSULE PO SCH (21:00)
== END 2019-11-29 22:30 | disposition short-term general hospital (02) | DRG 682 ==
LOC: EDUNIT# → ED 21:25 → MS3 23:48
PROVIDERS: ADMIT Internal Medicine; ATTEND Nurse Practitioner Gerontology
DX: I50.9 Heart failure, unspecified (principal); I13.10 Hypertensive heart and chronic kidney disease without heart failure, with stage 1 through stage 4 chronic kidney disease, or unspecified chronic kidney disease; I50.33 Acute on chronic diastolic (congestive) heart failure; R00.1 Bradycardia, unspecified; N17.9 Acute kidney failure, unspecified; E11.22 Type 2 diabetes mellitus with diabetic chronic kidney disease; N18.9 Chronic kidney disease, unspecified; E11.40 Type 2 diabetes mellitus with diabetic neuropathy, unspecified; E87.5 Hyperkalemia; J44.9 Chronic obstructive pulmonary disease, unspecified; I95.2 Hypotension due to drugs; T50.1X5A Adverse effect of loop [high-ceiling] diuretics, initial encounter; Y92.230 Patient room in hospital as the place of occurrence of the external cause; G89.29 Other chronic pain; M54.9 Dorsalgia, unspecified; K21.9 Gastro-esophageal reflux disease without esophagitis; K44.9 Diaphragmatic hernia without obstruction or gangrene; F32.9 Major depressive disorder, single episode, unspecified; E78.5 Hyperlipidemia, unspecified; I25.10 Atherosclerotic heart disease of native coronary artery without angina pectoris; R25.1 Tremor, unspecified; H40.9 Unspecified glaucoma; Z74.09 Other reduced mobility; Z79.82 Long term (current) use of aspirin; Z79.4 Long term (current) use of insulin; Z79.51 Long term (current) use of inhaled steroids; Z79.899 Other long term (current) drug therapy; I25.2 Old myocardial infarction
CPT/HCPCS: 36415; 71045; 76770; 80048; 80053; 81003; 82550; 83036; 83605; 83690; 83735; 83880; 84100; 84132; 84133; 84300; 84443; 84484; 85025; 85610; 85730; 93306; 94640; 97161; 97167; 97530; 99291; A9270; J1815; J3490; J7040; J7512; 80320; 81001; 87086

== ENCOUNTER 2019-12-15 17:30 | Outpatient (CLI) | payer MEDICARE, MEDICAID ==
[2019-12-15 19:30] LABS: CALCIUM 8.8 mg/dL (8.5-10.3); CREATININE 2.1 mg/dL (0.6-1.2)
== END 2019-12-15 23:59 | disposition home or self-care (01) ==
LOC: LAB.R 17:30
DX: E87.5 Hyperkalemia (principal)
CPT/HCPCS: 80048

== ENCOUNTER 2019-12-28 20:31 | Outpatient (CLI) | payer MEDICARE, MEDICAID | END 2019-12-28 23:59 | disposition critical access hospital (66) | LOC: EMS 20:31 | PROVIDERS: ATTEND Surgery | DX: R06.02 Shortness of breath (principal) | CPT/HCPCS: A0425; A0427 ==

== ENCOUNTER 2020-01-01 11:52 | Outpatient (CLI) | payer MEDICARE, MEDICAID ==
[2020-01-01 15:48] LABS: HGB - HEMOGLOBIN 10.9 g/dL (14.0-18.0); MEAN CORPUSCULAR HEMOGLOBIN 27.1 pg (27.0-31.0); MEAN CORPUSCULAR HGB CONC 31.8 g/dL (32.0-36.0); MEAN CORPUSCULAR VOLUME 85.3 fL (80.0-94.0); MEAN PLATELET VOLUME 10.8 fL (7.4-11.4); RED BLOOD COUNT 4.02 10^6/uL (4.70-6.10); RED CELL DISTRIBUTION WIDTH 17.5 % (12.0-15.0); WHITE BLOOD COUNT 8.5 x10^3/uL (4.8-10.8)
[2020-01-01 15:55] LABS: CALCIUM 8.6 mg/dL (8.5-10.3); CREATININE 3.7 mg/dL (0.6-1.2)
== END 2020-01-01 11:53 | disposition home or self-care (01) ==
LOC: LAB.S 11:52
PROVIDERS: ATTEND Physician Assistant
DX: I50.9 Heart failure, unspecified (principal); N17.9 Acute kidney failure, unspecified; N05.9 Unspecified nephritic syndrome with unspecified morphologic changes; D70.9 Neutropenia, unspecified; N18.9 Chronic kidney disease, unspecified; D63.1 Anemia in chronic kidney disease
CPT/HCPCS: 36415; 80048; 83880; 85027

== ENCOUNTER 2020-01-02 08:33 | Outpatient (CLI) | payer MEDICARE, MEDICAID | END 2020-01-02 08:34 | disposition critical access hospital (66) | LOC: EMS 08:33 | PROVIDERS: ATTEND Surgery | DX: R33.9 Retention of urine, unspecified (principal) | CPT/HCPCS: A0425; A0429 ==

== ENCOUNTER 2020-01-02 09:10 | Emergency (ER) | payer MEDICARE, MEDICAID ==
--- NOTE | 2020-01-02 09:44 | ED Physician Documentation ---
PD HPI MALE - Stated complaint Stated Complaint: - Chief complaint Chief Complaint: Abd Pain - History obtained from History obtained from: Patient, EMS - History of Present Illness Timing - onset: How many hours ago (several), Today Timing - duration: Hours (He awoke from sleep with a feeling of fullness in the bladder and noted his Alejandre catheter bag to be empty. He had emptied to before bed. He had slept the full night. He did not have a way of returning so called EMS for further evaluation) Timing - details: Gradual onset, Still present Associated symptoms: Alejandre problem (The Alejandre was not draining and his bladder felt full.) PD HPI MALE CONTRIB FACTORS: Indwelling catheter (Just placed a couple of days ago) Similar symptoms before: Has not had sx before Recently seen: Emergency Dept Review of Systems Constitutional: denies: Fever, Chills GI: reports: Abdominal Pain. denies: Nausea, Vomiting, Diarrhea PD PAST MEDICAL HISTORY - Past Medical History Cardiovascular: Hypertension, High cholesterol, Coronary artery disease, [place], Other Respiratory: COPD Neuro: Other Endocrine/Autoimmune: Type 2 diabetes GI: GERD, Hiatal hernia : Renal insuffiency HEENT: None Psych: Depression Musculoskeletal: Chronic back pain Derm: None - Past Surgical History Past Surgical History: Yes Cardiovascular: Other - Present Medications Home Medications: Ambulatory Orders Medication Instructions Recorded Confirmed Aspirin [Children's Aspirin] 81 mg PO DAILY 08/11/14 12/29/19 Brimonidine Tartrate [Alphagan P] 1 drops EACHEYE BID 08/11/14 12/29/19 Calcium Citrate/Vitamin D3 1 each PO DAILY 08/11/14 12/29/19 [Calcium Citrate - Vit D Tablet] Fluoxetine HCl [Prozac] 40 mg PO DAILY 08/11/14 12/29/19 Insulin Aspart [Novolog] 2 - 35 units SQ AC 08/11/14 12/29/19 Insulin Glargine [Lantus] 35 units SQ DAILY 08/11/14 12/29/19 Latanoprost 1 drops EACHEYE QPM 08/11/14 12/29/19 Methadone HCl [Dolophine HCl] 5 mg PO BID 08/11/14 12/29/19 Omeprazole [Prilosec] 20 mg PO DAILY 08/11/14 12/29/19 allopurinoL [Allopurinol] 100 mg PO DAILY 08/11/14 12/29/19 amLODIPine [Norvasc] 5 mg PO DAILY 08/11/14 12/29/19 Albuterol Sulfate [Albuterol 2 puffs INH Q4H PRN 11/19/19 12/29/19 Sulfate Hfa] Pregabalin [Lyrica] 100 mg PO DAILY 11/19/19 12/29/19 Umeclidinium Brm/Vilanterol Tr 1 puffs INH DAILY 11/19/19 12/29/19 [Anoro Ellipta 62.5-25 Mcg INH] traZODone [Desyrel] 75 mg PO QPM PRN 11/28/19 12/29/19 Atorvastatin [Lipitor] 10 mg PO QPM 12/29/19 12/29/19 Pregabalin 200 mg PO QPM 12/29/19 12/29/19 Apixaban [Eliquis] 2.5 mg PO BID #60 tab 12/31/19 Enalapril Maleate [Vasotec] 5 mg PO DAILY #0 12/31/19 12/29/19 Furosemide [Lasix] 40 mg PO BID #60 tablet 12/31/19 Tamsulosin [Flomax] 0.4 mg PO DAILY #30 capsule 12/31/19 - Allergies Allergies/Adverse Reactions: Allergies Allergy/AdvReac Type Severity Reaction Status Date / Time No Known Drug Allergies Allergy Verified 01/02/20 09:22 - Social History Does the pt smoke?: No Smoking Status: Never smoker Does the pt drink ETOH?: No Does the pt have substance abuse?: No - POLST Patient has POLST: No POLST Status: Full Code PD ED PE NORMAL - Vitals Vital signs reviewed: Yes - General General: Alert and oriented X 3, No acute distress (At the time of my exam, the catheter tubing had been repositioned and his urine flow is good. He is feeling more comfortable. He did have about 1400 mL out. Nursing will show him how to check the tubing and catheter bag), Well developed/nourished - Cardiac Cardiac: RRR, No murmur - Respiratory Respiratory: Clear bilaterally - Abdomen Abdomen: Soft, Non tender - Male Male : Other (The catheter appears well in place. There is no obvious malposition of the leg bag melendrez. The urine itself is clear without sediment or blood) - Derm Derm: Normal color, Warm and dry - Neuro Neuro: Alert and oriented X 3, Normal speech Results - Vitals Vitals: Vital Signs - 24 hr 01/02/20 01/02/20 09:15 10:43 Temperature 37.2 C 37.0 C Heart Rate 100 85 Respiratory 24 24 Rate Blood Pressure 147/79 H 122/57 L O2 Saturation 92 92 Oxygen O2 Source Room air PD MEDICAL DECISION MAKING - ED course Complexity details: considered differential (The Alejandre is draining upon repositioning of the tubing. It probably kinked and was just clogged. The urine itself appears clear without sediment or blood), d/w patient Departure - Departure Disposition: 01 Home, Self Care Clinical Impression: Alejandre catheter problem Qualifiers: Encounter type: initial encounter Qualified Code(s): T83.9XXA - Unspecified complication of genitourinary prosthetic device, implant and graft, initial enco unter Condition: Stable Record reviewed to determine appropriate education?: Yes Instructions: ED Catheter Care Alejandre Follow-Up: NEREYDA BERRY PA-C [Primary Care Provider] - Comments: The catheter is working well now. The tubing may have gotten kinked or some sediment buildup. It is flowing well now so we will leave it in place without any change of it. Follow-up with your primary as planned. Discharge Date/Time: 01/02/20 10:43
[2020-01-02 10:44] VITALS: BP 122/57
== END 2020-01-02 10:43 | disposition home or self-care (01) ==
LOC: EDUNIT# → ED 09:10
DX: T83.091A Other mechanical complication of indwelling urethral catheter, initial encounter (principal); Y84.6 Urinary catheterization as the cause of abnormal reaction of the patient, or of later complication, without mention of misadventure at the time of the procedure; I10 Essential (primary) hypertension; E11.9 Type 2 diabetes mellitus without complications; Z79.4 Long term (current) use of insulin; Z79.01 Long term (current) use of anticoagulants; Z79.82 Long term (current) use of aspirin
CPT/HCPCS: 99281

== ENCOUNTER 2020-01-05 11:05 | Outpatient (CLI) | payer MEDICARE, MEDICAID ==
[2020-01-05 15:28] LABS: CALCIUM 8.5 mg/dL (8.5-10.3)
== END 2020-01-05 11:06 | disposition home or self-care (01) ==
LOC: LAB.S 11:05
PROVIDERS: ATTEND Physician Assistant
DX: I50.9 Heart failure, unspecified (principal); N17.9 Acute kidney failure, unspecified
CPT/HCPCS: 36415; 80048; 83880

== ENCOUNTER 2020-02-19 09:20 | Outpatient (CLI) | payer MEDICARE, MEDICAID ==
[2020-02-19 10:48] LABS: BILIRUBIN,URINE NEGATIVE (NEGATIVE); GLUCOSE, URINE (UA) NEGATIVE (NEGATIVE); KETONES,URINE (UA) NEGATIVE (NEGATIVE); LEUKOCYTE ESTERASE, URINE MODERATE (NEGATIVE); NITRITE,URINE NEGATIVE (NEGATIVE); OCCULT BLOOD,URINE MODERATE (NEGATIVE); PROTEIN,URINE NEGATIVE (NEGATIVE); UROBILINOGEN,URINE 0.2 (NORMAL) E.U./dL (NORMAL)
[2020-02-19 10:55] LABS: CLARITY,URINE CLEAR (CLEAR)
[2020-02-19 11:01] LABS: SQUAMOUS EPITHELIAL CELL,UR NONE SEEN (<= Few); WBC CLUMPS,URINE PRESENT
[2020-02-19 11:02] LABS: BACTERIA,URINE Few /HPF (None Seen); CASTS, URINE 0-2 Hyaline Casts /LPF
== END 2020-02-19 23:59 | disposition home or self-care (01) ==
LOC: LAB.R 09:20
PROVIDERS: ATTEND Physician Assistant
DX: N39.0 Urinary tract infection, site not specified (principal)
CPT/HCPCS: 81001; 81003; 87077; 87086; 87181

== ENCOUNTER 2020-03-01 08:00 | Outpatient (CLI) | payer MEDICARE, MEDICAID | END 2020-03-01 23:59 | disposition home or self-care (01) | LOC: LAB.R 08:00 | PROVIDERS: ATTEND Physician Assistant | DX: I13.0 Hypertensive heart and chronic kidney disease with heart failure and stage 1 through stage 4 chronic kidney disease, or unspecified chronic kidney disease (principal); I50.9 Heart failure, unspecified; N18.9 Chronic kidney disease, unspecified; E10.22 Type 1 diabetes mellitus with diabetic chronic kidney disease; E10.51 Type 1 diabetes mellitus with diabetic peripheral angiopathy without gangrene; Z79.4 Long term (current) use of insulin; J44.9 Chronic obstructive pulmonary disease, unspecified; N40.0 Benign prostatic hyperplasia without lower urinary tract symptoms; I25.10 Atherosclerotic heart disease of native coronary artery without angina pectoris | CPT/HCPCS: 87086 ==

== ENCOUNTER 2020-03-18 09:41 | Outpatient (CLI) | payer MEDICARE, MEDICAID ==
[2020-03-18 15:28] LABS: BASOPHILS % (AUTO) 0.5 %; EOSINOPHILS # (AUTO) 0.4 10^3/uL (0.0-0.7); EOSINOPHILS % (AUTO) 5.7 %; HGB - HEMOGLOBIN 8.9 g/dL (14.0-18.0); LYMPHOCYTES # (AUTO) 2.2 10^3/uL (1.5-3.5); LYMPHOCYTES % (AUTO) 35.3 %; MEAN CORPUSCULAR HEMOGLOBIN 25.3 pg (27.0-31.0); MEAN CORPUSCULAR HGB CONC 29.6 g/dL (32.0-36.0); MEAN CORPUSCULAR VOLUME 85.5 fL (80.0-94.0); MEAN PLATELET VOLUME 10.2 fL (7.4-11.4); MONOCYTES # (AUTO) 0.6 10^3/uL (0.0-1.0); MONOCYTES % (AUTO) 9.2 %; NEUTROPHILS # (AUTO) 3.1 10^3/uL (1.5-6.6); PLT - PLATELET COUNT 213 10^3/uL (130-450); RED BLOOD COUNT 3.52 10^6/uL (4.70-6.10); RED CELL DISTRIBUTION WIDTH 17.8 % (12.0-15.0); WHITE BLOOD COUNT 6.3 x10^3/uL (4.8-10.8)
[2020-03-18 15:41] LABS: CREATININE,URINE 34.3 mg/dL; MICROALBUM/CREATININE RATIO,UR 236.2 ug/mg (<30.0); MICROALBUMIN,URINE 8.1 mg/dL (0-300.0)
[2020-03-18 15:55] LABS: ALBUMIN 3.7 g/dL (3.2-5.5); ALBUMIN/GLOBULIN RATIO 1.1 (1.0-2.2); ALKALINE PHOSPHATASE 51 IU/L (42-121); ALT ALANINE AMINOTRANSFERASE < 10 IU/L (10-60); AST ASPARTATE AMINOTRANSFERASE 14 IU/L (10-42); BILIRUBIN,TOTAL 0.5 mg/dL (0.2-1.0); BUN - BLOOD UREA NITROGEN 54 mg/dL (6-20); CALCIUM 8.9 mg/dL (8.5-10.3); CARBON DIOXIDE - CO2 28 mmol/L (21-32); CHLORIDE 105 mmol/L (101-111); CHOL/HDL RATIO 1.9 (<5.0); CHOLESTEROL 105 mg/dL; CREATININE 2.7 mg/dL (0.6-1.2); GLUCOSE 95 mg/dL (70-100); HDL CHOLESTEROL 55 mg/dL; LDL CHOLESTEROL,CALCULATED 36 mg/dL; LDL/HDL RATIO 0.7 (<3.6); SODIUM 141 mmol/L (135-145); TOTAL PROTEIN 7.2 g/dL (6.7-8.2); VLDL CHOLESTEROL 14 mg/dL
[2020-03-18 19:18] LABS: HEMOGLOBIN A1c% 6.3 % (4.27-6.07)
== END 2020-03-18 09:42 | disposition home or self-care (01) ==
LOC: LAB.S 09:41
PROVIDERS: ATTEND Physician Assistant
DX: I12.9 Hypertensive chronic kidney disease with stage 1 through stage 4 chronic kidney disease, or unspecified chronic kidney disease (principal); N18.9 Chronic kidney disease, unspecified; Z79.4 Long term (current) use of insulin; E10.51 Type 1 diabetes mellitus with diabetic peripheral angiopathy without gangrene; J44.9 Chronic obstructive pulmonary disease, unspecified; N40.0 Benign prostatic hyperplasia without lower urinary tract symptoms; I50.9 Heart failure, unspecified; I25.10 Atherosclerotic heart disease of native coronary artery without angina pectoris
CPT/HCPCS: 36415; 80053; 80061; 82043; 82570; 83036; 83721; 83880; 84153; 84443; 85025; 87086; 87181

== ENCOUNTER 2020-04-26 10:51 | Outpatient (CLI) | payer MEDICARE, MEDICAID ==
[2020-04-26 14:36] LABS: HGB - HEMOGLOBIN 7.9 g/dL (14.0-18.0); MEAN CORPUSCULAR HEMOGLOBIN 25.8 pg (27.0-31.0); MEAN CORPUSCULAR HGB CONC 30.2 g/dL (32.0-36.0); MEAN CORPUSCULAR VOLUME 85.6 fL (80.0-94.0); MEAN PLATELET VOLUME 10.3 fL (7.4-11.4); RED BLOOD COUNT 3.06 10^6/uL (4.70-6.10); RED CELL DISTRIBUTION WIDTH 20.7 % (12.0-15.0); WHITE BLOOD COUNT 8.1 x10^3/uL (4.8-10.8)
[2020-04-26 15:46] LABS: CALCIUM 8.8 mg/dL (8.5-10.3); CREATININE 2.8 mg/dL (0.6-1.2)
== END 2020-04-26 10:52 | disposition home or self-care (01) ==
LOC: LAB.S 10:51
PROVIDERS: ATTEND Internal Medicine Nephrology
DX: N05.9 Unspecified nephritic syndrome with unspecified morphologic changes (principal); D70.9 Neutropenia, unspecified; D50.0 Iron deficiency anemia secondary to blood loss (chronic); D63.1 Anemia in chronic kidney disease; N18.9 Chronic kidney disease, unspecified
CPT/HCPCS: 36415; 80048; 82728; 83540; 84466; 85027

== ENCOUNTER 2020-05-10 11:16 | Outpatient (CLI) | payer MEDICARE, MEDICAID ==
[2020-05-10 17:27] LABS: FOLATE 19.89 ng/mL (5.90 - >24.8)
== END 2020-05-10 11:17 | disposition home or self-care (01) ==
LOC: LAB.S 11:16
PROVIDERS: ATTEND Internal Medicine
DX: I10 Essential (primary) hypertension (principal); E10.51 Type 1 diabetes mellitus with diabetic peripheral angiopathy without gangrene; D50.0 Iron deficiency anemia secondary to blood loss (chronic)
CPT/HCPCS: 36415; 82607; 82746

== ENCOUNTER 2020-05-13 08:00 | Outpatient (CLI) | payer MEDICARE, MEDICAID | END 2020-05-13 23:59 | disposition home or self-care (01) | LOC: LAB.R 08:00 | PROVIDERS: ATTEND Internal Medicine Nephrology | DX: D50.0 Iron deficiency anemia secondary to blood loss (chronic) (principal) | CPT/HCPCS: 82270 ==

== ENCOUNTER 2020-06-28 09:49 | Outpatient (CLI) | payer MEDICARE, MEDICAID ==
[2020-06-28 15:32] LABS: BASOPHILS % (AUTO) 0.4 %; EOSINOPHILS # (AUTO) 0.2 10^3/uL (0.0-0.7); EOSINOPHILS % (AUTO) 3.5 %; HGB - HEMOGLOBIN 9.4 g/dL (14.0-18.0); LYMPHOCYTES # (AUTO) 1.7 10^3/uL (1.5-3.5); LYMPHOCYTES % (AUTO) 24.3 %; MEAN CORPUSCULAR HEMOGLOBIN 25.3 pg (27.0-31.0); MEAN CORPUSCULAR HGB CONC 27.7 g/dL (32.0-36.0); MEAN CORPUSCULAR VOLUME 91.4 fL (80.0-94.0); MEAN PLATELET VOLUME 10.1 fL (7.4-11.4); MONOCYTES # (AUTO) 0.6 10^3/uL (0.0-1.0); MONOCYTES % (AUTO) 8.4 %; NEUTROPHILS # (AUTO) 4.3 10^3/uL (1.5-6.6); PLT - PLATELET COUNT 208 10^3/uL (130-450); RED BLOOD COUNT 3.71 10^6/uL (4.70-6.10); RED CELL DISTRIBUTION WIDTH 18.9 % (12.0-15.0); WHITE BLOOD COUNT 6.8 x10^3/uL (4.8-10.8)
[2020-06-28 15:56] LABS: ALBUMIN 4.1 g/dL (3.2-5.5); ALBUMIN/GLOBULIN RATIO 1.4 (1.0-2.2); BILIRUBIN,TOTAL 0.3 mg/dL (0.2-1.0); CALCIUM 8.7 mg/dL (8.5-10.3); CREATININE 2.9 mg/dL (0.6-1.2); TOTAL PROTEIN 7.1 g/dL (6.7-8.2)
[2020-06-28 16:37] LABS: PLATELET ESTIMATE, MANUAL NORMAL (130-450,000) (NORMAL); PLATELET MORPHOLOGY NORMAL APPEARANCE (NORMAL)
[2020-06-28 20:27] LABS: HEMOGLOBIN A1c% 5.8 % (4.27-6.07)
== END 2020-06-28 09:50 | disposition home or self-care (01) ==
LOC: LAB.S 09:49
PROVIDERS: ATTEND Internal Medicine
DX: I50.1 Left ventricular failure, unspecified (principal); E10.51 Type 1 diabetes mellitus with diabetic peripheral angiopathy without gangrene; D64.9 Anemia, unspecified
CPT/HCPCS: 36415; 80053; 83036; 83880; 85025

== ENCOUNTER 2020-08-30 11:05 | Outpatient (CLI) | payer MEDICARE, MEDICAID ==
[2020-08-30 14:11] LABS: BASOPHILS % (AUTO) 0.2 %; EOSINOPHILS # (AUTO) 0.2 10^3/uL (0.0-0.7); EOSINOPHILS % (AUTO) 2.1 %; HCT - HEMATOCRIT 35.7 % (42.0-52.0); HGB - HEMOGLOBIN 10.8 g/dL (14.0-18.0); LYMPHOCYTES # (AUTO) 2.1 10^3/uL (1.5-3.5); LYMPHOCYTES % (AUTO) 24.9 %; MEAN CORPUSCULAR HEMOGLOBIN 27.6 pg (27.0-31.0); MEAN CORPUSCULAR HGB CONC 30.3 g/dL (32.0-36.0); MEAN CORPUSCULAR VOLUME 91.1 fL (80.0-94.0); MEAN PLATELET VOLUME 10.4 fL (7.4-11.4); MONOCYTES # (AUTO) 0.5 10^3/uL (0.0-1.0); MONOCYTES % (AUTO) 6.4 %; NEUTROPHILS # (AUTO) 5.5 10^3/uL (1.5-6.6); NEUTROPHILS % (AUTO) 65.9 %; PLT - PLATELET COUNT 189 10^3/uL (130-450); RED BLOOD COUNT 3.92 10^6/uL (4.70-6.10); WHITE BLOOD COUNT 8.3 x10^3/uL (4.8-10.8)
[2020-08-30 14:38] LABS: CREATININE,URINE 40.2 mg/dL
[2020-08-30 14:57] LABS: ALBUMIN 4.1 g/dL (3.2-5.5); ALBUMIN/GLOBULIN RATIO 1.3 (1.0-2.2); BILIRUBIN,TOTAL 0.6 mg/dL (0.2-1.0); CALCIUM 8.4 mg/dL (8.5-10.3); CREATININE 2.4 mg/dL (0.6-1.2); POTASSIUM 4.4 mmol/L (3.5-5.0); TOTAL PROTEIN 7.3 g/dL (6.7-8.2)
[2020-08-30 15:07] LABS: PHOSPHORUS 4.2 mg/dL (2.5-4.6); URIC ACID 5.9 mg/dL (2.6-7.2)
[2020-08-31 20:12] LABS: PROTEIN/CREATININE RATIO,URINE 0.3 (<=0.2)
== END 2020-08-30 11:06 | disposition home or self-care (01) ==
LOC: LAB.S 11:05
PROVIDERS: ATTEND Internal Medicine
DX: N05.9 Unspecified nephritic syndrome with unspecified morphologic changes (principal); E83.30 Disorder of phosphorus metabolism, unspecified; N25.81 Secondary hyperparathyroidism of renal origin; M10.00 Idiopathic gout, unspecified site; R80.9 Proteinuria, unspecified; D63.1 Anemia in chronic kidney disease; I50.32 Chronic diastolic (congestive) heart failure; I50.1 Left ventricular failure, unspecified; D70.9 Neutropenia, unspecified
CPT/HCPCS: 36415; 80053; 82043; 82570; 83880; 83970; 84100; 84156; 84550; 85025

== ENCOUNTER 2020-09-13 14:40 | Outpatient (CLI) | payer MEDICARE, MEDICAID ==
[2020-09-13 15:51] LABS: ALBUMIN 3.8 g/dL (3.2-5.5); ALBUMIN/GLOBULIN RATIO 1.2 (1.0-2.2); BILIRUBIN,TOTAL 0.7 mg/dL (0.2-1.0); CREATININE 3.2 mg/dL (0.6-1.2); POTASSIUM 5.3 mmol/L (3.5-5.0); TOTAL PROTEIN 6.9 g/dL (6.7-8.2)
== END 2020-09-13 14:41 | disposition home or self-care (01) ==
LOC: LAB 14:40
PROVIDERS: ATTEND Internal Medicine
DX: I50.1 Left ventricular failure, unspecified (principal); E55.9 Vitamin D deficiency, unspecified
CPT/HCPCS: 36415; 80053; 81599; 82306; 82652

== ENCOUNTER 2020-11-01 12:01 | Outpatient (CLI) | payer MEDICARE, MEDICAID ==
[2020-11-01 15:11] LABS: BASOPHILS % (AUTO) 0.1 %; EOSINOPHILS # (AUTO) 0.1 10^3/uL (0.0-0.7); EOSINOPHILS % (AUTO) 1.4 %; HCT - HEMATOCRIT 34.8 % (42.0-52.0); HGB - HEMOGLOBIN 10.5 g/dL (14.0-18.0); LYMPHOCYTES # (AUTO) 2.2 10^3/uL (1.5-3.5); LYMPHOCYTES % (AUTO) 26.2 %; MEAN CORPUSCULAR HEMOGLOBIN 28.2 pg (27.0-31.0); MEAN CORPUSCULAR HGB CONC 30.2 g/dL (32.0-36.0); MEAN CORPUSCULAR VOLUME 93.5 fL (80.0-94.0); MEAN PLATELET VOLUME 10.7 fL (7.4-11.4); MONOCYTES # (AUTO) 0.4 10^3/uL (0.0-1.0); MONOCYTES % (AUTO) 4.9 %; NEUTROPHILS # (AUTO) 5.6 10^3/uL (1.5-6.6); NEUTROPHILS % (AUTO) 66.8 %; PLT - PLATELET COUNT 167 10^3/uL (130-450); RED BLOOD COUNT 3.72 10^6/uL (4.70-6.10); RED CELL DISTRIBUTION WIDTH 17.1 % (12.0-15.0); WHITE BLOOD COUNT 8.4 x10^3/uL (4.8-10.8)
[2020-11-01 15:43] LABS: ALBUMIN/GLOBULIN RATIO 1.3 (1.0-2.2); BILIRUBIN,TOTAL 0.6 mg/dL (0.2-1.0); CALCIUM 8.7 mg/dL (8.5-10.3); CREATININE 2.4 mg/dL (0.6-1.2); POTASSIUM 5.4 mmol/L (3.5-5.0); TOTAL PROTEIN 7.1 g/dL (6.7-8.2)
== END 2020-11-01 12:02 | disposition home or self-care (01) ==
LOC: LAB.S 12:01
PROVIDERS: ATTEND Internal Medicine
DX: D64.9 Anemia, unspecified (principal); R39.2 Extrarenal uremia
CPT/HCPCS: 36415; 80053; 85025

== ENCOUNTER 2020-11-03 08:00 | Outpatient (CLI) | payer MEDICARE, MEDICAID ==
[2020-11-04 11:48] LABS: CLARITY,URINE CLEAR (CLEAR); LEUKOCYTE ESTERASE, URINE NEGATIVE (NEGATIVE); NITRITE,URINE NEGATIVE (NEGATIVE); UROBILINOGEN,URINE 0.2 (NORMAL) E.U./dL (NORMAL)
[2020-11-04 11:49] LABS: BACTERIA,URINE Rare /HPF (None Seen); BILIRUBIN,URINE NEGATIVE (NEGATIVE); GLUCOSE, URINE (UA) NEGATIVE (NEGATIVE); KETONES,URINE (UA) NEGATIVE (NEGATIVE); OCCULT BLOOD,URINE NEGATIVE (NEGATIVE); PROTEIN,URINE NEGATIVE (NEGATIVE); RBC,URINE 0-5 /HPF (0-5); SQUAMOUS EPITHELIAL CELL,UR RARE Squamous (<= Few); WBC,URINE 0-3 /HPF (0-3)
== END 2020-11-03 23:59 | disposition home or self-care (01) ==
LOC: LAB.S 08:00
PROVIDERS: ATTEND Internal Medicine
DX: N30.00 Acute cystitis without hematuria (principal); N13.9 Obstructive and reflux uropathy, unspecified; N18.9 Chronic kidney disease, unspecified
CPT/HCPCS: 81001; 87086

== ENCOUNTER 2020-12-02 11:39 | Outpatient (CLI) | payer MEDICARE, MEDICAID ==
[2020-12-02 15:21] LABS: BILIRUBIN,URINE NEGATIVE (NEGATIVE); GLUCOSE, URINE (UA) NEGATIVE (NEGATIVE); KETONES,URINE (UA) NEGATIVE (NEGATIVE); LEUKOCYTE ESTERASE, URINE MODERATE (NEGATIVE); NITRITE,URINE NEGATIVE (NEGATIVE); OCCULT BLOOD,URINE TRACE-INTA (NEGATIVE); PROTEIN,URINE NEGATIVE (NEGATIVE); UROBILINOGEN,URINE 0.2 (NORMAL) E.U./dL (NORMAL)
[2020-12-02 15:25] LABS: CLARITY,URINE CLEAR (CLEAR)
[2020-12-02 16:08] LABS: BACTERIA,URINE Few /HPF (None Seen); RBC,URINE 0-5 /HPF (0-5); SQUAMOUS EPITHELIAL CELL,UR FEW Squamous (<= Few)
[2020-12-02 16:32] LABS: ALBUMIN 4.1 g/dL (3.2-5.5); ALBUMIN/GLOBULIN RATIO 1.3 (1.0-2.2); BILIRUBIN,TOTAL 0.5 mg/dL (0.2-1.0); CALCIUM 8.3 mg/dL (8.5-10.3); CREATININE 3.1 mg/dL (0.6-1.2); POTASSIUM 4.9 mmol/L (3.5-5.0); TOTAL PROTEIN 7.2 g/dL (6.7-8.2)
== END 2020-12-02 11:40 | disposition home or self-care (01) ==
LOC: LAB.S 11:39
PROVIDERS: ATTEND Internal Medicine
DX: R39.2 Extrarenal uremia (principal); N18.9 Chronic kidney disease, unspecified
CPT/HCPCS: 36415; 80053; 81001; 87086

== ENCOUNTER 2020-12-20 10:31 | Outpatient (CLI) | payer MEDICARE, MEDICAID ==
[2020-12-20 16:24] LABS: BASOPHILS % (AUTO) 0.4 %; EOSINOPHILS # (AUTO) 0.1 10^3/uL (0.0-0.7); EOSINOPHILS % (AUTO) 1.3 %; HCT - HEMATOCRIT 33.5 % (42.0-52.0); HGB - HEMOGLOBIN 10.1 g/dL (14.0-18.0); LYMPHOCYTES # (AUTO) 1.4 10^3/uL (1.5-3.5); LYMPHOCYTES % (AUTO) 16.9 %; MEAN CORPUSCULAR HEMOGLOBIN 29.9 pg (27.0-31.0); MEAN CORPUSCULAR HGB CONC 30.1 g/dL (32.0-36.0); MEAN CORPUSCULAR VOLUME 99.1 fL (80.0-94.0); MEAN PLATELET VOLUME 10.9 fL (7.4-11.4); MONOCYTES # (AUTO) 0.6 10^3/uL (0.0-1.0); MONOCYTES % (AUTO) 7.5 %; NEUTROPHILS # (AUTO) 6.2 10^3/uL (1.5-6.6); NEUTROPHILS % (AUTO) 73.1 %; PLT - PLATELET COUNT 216 10^3/uL (130-450); RED BLOOD COUNT 3.38 10^6/uL (4.70-6.10); RED CELL DISTRIBUTION WIDTH 15.7 % (12.0-15.0); WHITE BLOOD COUNT 8.5 x10^3/uL (4.8-10.8)
[2020-12-20 16:36] LABS: BILIRUBIN,URINE NEGATIVE (NEGATIVE); GLUCOSE, URINE (UA) NEGATIVE (NEGATIVE); KETONES,URINE (UA) NEGATIVE (NEGATIVE); LEUKOCYTE ESTERASE, URINE MODERATE (NEGATIVE); NITRITE,URINE POSITIVE (NEGATIVE); OCCULT BLOOD,URINE MODERATE (NEGATIVE); PH,URINE 5.5 PH (5.0-7.5); PROTEIN,URINE NEGATIVE (NEGATIVE); UROBILINOGEN,URINE 0.2 (NORMAL) E.U./dL (NORMAL)
[2020-12-20 16:42] LABS: CLARITY,URINE HAZY (CLEAR)
[2020-12-20 16:55] LABS: BACTERIA,URINE Many /HPF (None Seen); SQUAMOUS EPITHELIAL CELL,UR RARE Squamous (<= Few); WBC,URINE >25 /HPF (0-3)
[2020-12-20 16:56] LABS: ALBUMIN/GLOBULIN RATIO 1.4 (1.0-2.2); BILIRUBIN,TOTAL 0.6 mg/dL (0.2-1.0); CREATININE 2.8 mg/dL (0.6-1.2); TOTAL PROTEIN 6.8 g/dL (6.7-8.2)
[2020-12-20 16:57] LABS: CALCIUM 8.2 mg/dL (8.5-10.3); POTASSIUM 5.2 mmol/L (3.5-5.0)
== END 2020-12-20 10:32 | disposition home or self-care (01) ==
LOC: LAB.S 10:31
PROVIDERS: ATTEND Internal Medicine
DX: N18.9 Chronic kidney disease, unspecified (principal); D64.9 Anemia, unspecified; I50.1 Left ventricular failure, unspecified
CPT/HCPCS: 36415; 80053; 81001; 83880; 85025

== ENCOUNTER 2021-01-20 13:40 | Outpatient (CLI) | payer MEDICARE, MEDICAID ==
[2021-01-20 20:04] LABS: BASOPHILS % (AUTO) 0.5 %; EOSINOPHILS # (AUTO) 0.1 10^3/uL (0.0-0.7); EOSINOPHILS % (AUTO) 1.5 %; HCT - HEMATOCRIT 32.2 % (42.0-52.0); HGB - HEMOGLOBIN 9.7 g/dL (14.0-18.0); LYMPHOCYTES # (AUTO) 1.4 10^3/uL (1.5-3.5); LYMPHOCYTES % (AUTO) 16.1 %; MEAN CORPUSCULAR HEMOGLOBIN 29.7 pg (27.0-31.0); MEAN CORPUSCULAR HGB CONC 30.1 g/dL (32.0-36.0); MEAN CORPUSCULAR VOLUME 98.5 fL (80.0-94.0); MEAN PLATELET VOLUME 10.8 fL (7.4-11.4); MONOCYTES # (AUTO) 0.6 10^3/uL (0.0-1.0); MONOCYTES % (AUTO) 7.3 %; NEUTROPHILS # (AUTO) 6.3 10^3/uL (1.5-6.6); NEUTROPHILS % (AUTO) 73.7 %; PLT - PLATELET COUNT 204 10^3/uL (130-450); RED BLOOD COUNT 3.27 10^6/uL (4.70-6.10); RED CELL DISTRIBUTION WIDTH 15.4 % (12.0-15.0); WHITE BLOOD COUNT 8.5 x10^3/uL (4.8-10.8)
[2021-01-20 20:17] LABS: ALBUMIN 3.7 g/dL (3.2-5.5); ALBUMIN/GLOBULIN RATIO 1.3 (1.0-2.2); BILIRUBIN,TOTAL 0.5 mg/dL (0.2-1.0); CALCIUM 8.3 mg/dL (8.5-10.3); CREATININE 2.9 mg/dL (0.6-1.2); POTASSIUM 4.1 mmol/L (3.5-5.0); TOTAL PROTEIN 6.6 g/dL (6.7-8.2)
== END 2021-01-20 13:41 | disposition home or self-care (01) ==
LOC: LAB.S 13:40
PROVIDERS: ATTEND Internal Medicine
DX: N18.9 Chronic kidney disease, unspecified (principal); D64.9 Anemia, unspecified
CPT/HCPCS: 36415; 80053; 85025

== ENCOUNTER 2021-01-27 07:00 | Outpatient (CLI) | payer MEDICARE, MEDICAID | END 2021-01-27 23:59 | disposition home or self-care (01) | LOC: LAB 07:00 | PROVIDERS: ATTEND Internal Medicine | DX: R19.7 Diarrhea, unspecified (principal) | CPT/HCPCS: 87493 ==

== ENCOUNTER 2021-03-09 11:52 | Outpatient (CLI) | payer MEDICARE, MEDICAID ==
[2021-03-09 15:10] LABS: BASOPHILS % (AUTO) 0.4 %; EOSINOPHILS # (AUTO) 0.2 10^3/uL (0.0-0.7); EOSINOPHILS % (AUTO) 2.5 %; HCT - HEMATOCRIT 34.4 % (42.0-52.0); HGB - HEMOGLOBIN 10.5 g/dL (14.0-18.0); LYMPHOCYTES # (AUTO) 1.8 10^3/uL (1.5-3.5); LYMPHOCYTES % (AUTO) 21.8 %; MEAN CORPUSCULAR HGB CONC 30.5 g/dL (32.0-36.0); MEAN PLATELET VOLUME 10.7 fL (7.4-11.4); MONOCYTES # (AUTO) 0.5 10^3/uL (0.0-1.0); MONOCYTES % (AUTO) 6.6 %; NEUTROPHILS # (AUTO) 5.5 10^3/uL (1.5-6.6); NEUTROPHILS % (AUTO) 68.1 %; PLT - PLATELET COUNT 211 10^3/uL (130-450); RED BLOOD COUNT 3.62 10^6/uL (4.70-6.10); RED CELL DISTRIBUTION WIDTH 14.6 % (12.0-15.0); WHITE BLOOD COUNT 8.1 x10^3/uL (4.8-10.8)
[2021-03-09 15:15] LABS: ALBUMIN 3.7 g/dL (3.2-5.5); ALBUMIN/GLOBULIN RATIO 1.2 (1.0-2.2); BILIRUBIN,TOTAL 0.6 mg/dL (0.2-1.0); CALCIUM 8.3 mg/dL (8.5-10.3); CREATININE 2.6 mg/dL (0.6-1.2); POTASSIUM 4.7 mmol/L (3.5-5.0); TOTAL PROTEIN 6.7 g/dL (6.7-8.2)
== END 2021-03-09 11:53 | disposition home or self-care (01) ==
LOC: LAB.S 11:52
PROVIDERS: ATTEND Internal Medicine
DX: N18.9 Chronic kidney disease, unspecified (principal); D64.9 Anemia, unspecified; R19.7 Diarrhea, unspecified
CPT/HCPCS: 36415; 80053; 85025

== ENCOUNTER 2021-03-10 08:00 | Outpatient (CLI) | payer MEDICARE, MEDICAID | END 2021-03-10 23:59 | disposition home or self-care (01) | LOC: LAB.S 08:00 | PROVIDERS: ATTEND Internal Medicine | DX: R19.7 Diarrhea, unspecified (principal) | CPT/HCPCS: 87493 ==

== ENCOUNTER 2021-03-16 12:07 | Outpatient (CLI) | payer MEDICARE, MEDICAID ==
--- NOTE | 2021-03-16 15:35 | MRI Report ---
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 COMPARISON: 12/02/2019 FINDINGS: IV contrast was not administered due to the patient's GFR of 26. The previously described extra-axial dural based mass with a dural tail is unchanged in size from the prior study. Mild mass effect on the immediately adjacent parenchyma without associated or parenchym al edema. There is again suggestion of a small extension of the mass invading the diploic space super iorly (for example sagittal T1 series 301 image 9 and and coronal T2 series 801 image 15). The mass i ndicates low ADC signal indicating high cellularity. There is no significant associated susceptibilit y artifact, suggesting that the mass is not significantly calcified. There are small flow voids withi n it adjacent to the mass representing vessels (for example sagittal T1 series 301 image 9 and axial T2 series 501 image 23). Global cerebral volume loss with moderate chronic microvascular ischemic changes. No unexpected intra cranial susceptibility. No findings of midline shift. The ventricular system and basilar cisterns are patent. No gross orbital abnormality other than intraocular lens replacements. Predominantly clear p aranasal sinuses and mastoid air cells. 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 Possible invasion of the left frontal calvarial diploic space overlying the mass is redemonstrated also. IV contrast was not administered due to the patient's impaired renal function. Reviewed by: Yaya Lomax MD on 03/16/2021 3:34 PM PDT Approved by: Yaya Lomax MD on 03/16/2021 3:34 PM PDT Station ID: [id number]
== END 2021-03-16 12:08 | disposition home or self-care (01) ==
LOC: DI 12:07
PROVIDERS: ATTEND Neurological Surgery
DX: D32.9 Benign neoplasm of meninges, unspecified (principal)

== ENCOUNTER → 2021-03-16 | Outpatient (CLI) | payer MEDICARE, MEDICAID ==
[2021-03-16 12:48] LABS: CALCIUM 8.6 mg/dL (8.5-10.3); CREATININE 2.4 mg/dL (0.6-1.2); POTASSIUM 5.1 mmol/L (3.5-5.0)
== END ==
LOC: LAB 07:00
PROVIDERS: ATTEND Nurse Practitioner Family
DX: D32.9 Benign neoplasm of meninges, unspecified (principal)
CPT/HCPCS: 36415; 80048

== ENCOUNTER 2021-04-18 11:16 | Outpatient (CLI) | payer MEDICARE, MEDICAID ==
[2021-04-18 14:59] LABS: BASOPHILS % (AUTO) 0.5 %; EOSINOPHILS # (AUTO) 0.2 10^3/uL (0.0-0.7); EOSINOPHILS % (AUTO) 2.4 %; HCT - HEMATOCRIT 35.5 % (42.0-52.0); HGB - HEMOGLOBIN 10.5 g/dL (14.0-18.0); LYMPHOCYTES # (AUTO) 1.8 10^3/uL (1.5-3.5); LYMPHOCYTES % (AUTO) 22.1 %; MEAN CORPUSCULAR HEMOGLOBIN 28.2 pg (27.0-31.0); MEAN CORPUSCULAR HGB CONC 29.6 g/dL (32.0-36.0); MEAN CORPUSCULAR VOLUME 95.4 fL (80.0-94.0); MEAN PLATELET VOLUME 10.8 fL (7.4-11.4); MONOCYTES # (AUTO) 0.5 10^3/uL (0.0-1.0); MONOCYTES % (AUTO) 6.6 %; NEUTROPHILS # (AUTO) 5.5 10^3/uL (1.5-6.6); NEUTROPHILS % (AUTO) 67.9 %; PLT - PLATELET COUNT 203 10^3/uL (130-450); RED BLOOD COUNT 3.72 10^6/uL (4.70-6.10); RED CELL DISTRIBUTION WIDTH 15.5 % (12.0-15.0); WHITE BLOOD COUNT 8.1 x10^3/uL (4.8-10.8)
[2021-04-18 15:08] LABS: ALBUMIN 3.8 g/dL (3.2-5.5); ALBUMIN/GLOBULIN RATIO 1.3 (1.0-2.2); BILIRUBIN,TOTAL 0.5 mg/dL (0.2-1.0); CALCIUM 8.4 mg/dL (8.5-10.3); CREATININE 2.5 mg/dL (0.6-1.2); POTASSIUM 4.6 mmol/L (3.5-5.0); TOTAL PROTEIN 6.8 g/dL (6.7-8.2)
== END 2021-04-18 11:17 | disposition home or self-care (01) ==
LOC: LAB.S 11:16
PROVIDERS: ATTEND Internal Medicine
DX: N18.9 Chronic kidney disease, unspecified (principal); D64.9 Anemia, unspecified
CPT/HCPCS: 36415; 80053; 85025

== ENCOUNTER 2021-04-20 08:00 | Outpatient (CLI) | payer MEDICARE, MEDICAID | END 2021-04-20 23:59 | disposition home or self-care (01) | LOC: LAB.S 08:00 | PROVIDERS: ATTEND Internal Medicine | DX: R19.7 Diarrhea, unspecified (principal) | CPT/HCPCS: 81599; 82274; 83993; 87045; 87177; 87209; 87329; 87427; 87449 ==

== ENCOUNTER 2021-04-25 08:00 | Outpatient (CLI) | payer MEDICARE, MEDICAID ==
[2021-04-25 16:31] LABS: FECAL OCCULT BLOOD (FIT) NEGATIVE (NEGATIVE)
== END 2021-04-25 23:59 | disposition home or self-care (01) ==
LOC: LAB.S 08:00
PROVIDERS: ATTEND Internal Medicine
DX: R19.7 Diarrhea, unspecified (principal)
CPT/HCPCS: 82274

== ENCOUNTER 2021-06-21 09:47 | Outpatient (CLI) | payer MEDICARE, MEDICAID ==
[2021-06-21 14:35] LABS: BASOPHILS % (AUTO) 0.4 %; EOSINOPHILS # (AUTO) 0.2 10^3/uL (0.0-0.7); HCT - HEMATOCRIT 36.6 % (42.0-52.0); HGB - HEMOGLOBIN 11.2 g/dL (14.0-18.0); LYMPHOCYTES # (AUTO) 2.1 10^3/uL (1.5-3.5); LYMPHOCYTES % (AUTO) 28.2 %; MEAN CORPUSCULAR HEMOGLOBIN 29.4 pg (27.0-31.0); MEAN CORPUSCULAR HGB CONC 30.6 g/dL (32.0-36.0); MEAN CORPUSCULAR VOLUME 96.1 fL (80.0-94.0); MEAN PLATELET VOLUME 10.9 fL (7.4-11.4); MONOCYTES # (AUTO) 0.6 10^3/uL (0.0-1.0); MONOCYTES % (AUTO) 7.8 %; NEUTROPHILS # (AUTO) 4.5 10^3/uL (1.5-6.6); NEUTROPHILS % (AUTO) 60.1 %; PLT - PLATELET COUNT 177 10^3/uL (130-450); RED BLOOD COUNT 3.81 10^6/uL (4.70-6.10); RED CELL DISTRIBUTION WIDTH 16.5 % (12.0-15.0); WHITE BLOOD COUNT 7.6 x10^3/uL (4.8-10.8)
[2021-06-21 15:22] LABS: ALBUMIN 3.7 g/dL (3.2-5.5); ALBUMIN/GLOBULIN RATIO 1.2 (1.0-2.2); BILIRUBIN,TOTAL 0.5 mg/dL (0.2-1.0); CREATININE 2.7 mg/dL (0.6-1.2); TOTAL PROTEIN 6.7 g/dL (6.7-8.2)
[2021-06-21 15:34] LABS: CALCIUM 8.6 mg/dL (8.5-10.3)
[2021-06-21 20:22] LABS: ESTIMATED AVERAGE GLUCOSE 126 mg/dL (70-100)
== END 2021-06-21 09:48 | disposition home or self-care (01) ==
LOC: LAB.S 09:47
PROVIDERS: ATTEND Internal Medicine
DX: I10 Essential (primary) hypertension (principal); E10.21 Type 1 diabetes mellitus with diabetic nephropathy
CPT/HCPCS: 36415; 80053; 83036; 85025

== ENCOUNTER 2021-08-22 10:19 | Outpatient (CLI) | payer MEDICARE, MEDICAID ==
[2021-08-22 14:59] LABS: BASOPHILS % (AUTO) 0.4 %; EOSINOPHILS # (AUTO) 0.2 10^3/uL (0.0-0.7); EOSINOPHILS % (AUTO) 3.3 %; HCT - HEMATOCRIT 34.2 % (42.0-52.0); HGB - HEMOGLOBIN 10.6 g/dL (14.0-18.0); LYMPHOCYTES # (AUTO) 1.9 10^3/uL (1.5-3.5); LYMPHOCYTES % (AUTO) 25.8 %; MEAN CORPUSCULAR HEMOGLOBIN 30.3 pg (27.0-31.0); MEAN CORPUSCULAR VOLUME 97.7 fL (80.0-94.0); MEAN PLATELET VOLUME 10.9 fL (7.4-11.4); MONOCYTES # (AUTO) 0.8 10^3/uL (0.0-1.0); MONOCYTES % (AUTO) 10.3 %; NEUTROPHILS # (AUTO) 4.3 10^3/uL (1.5-6.6); NEUTROPHILS % (AUTO) 59.5 %; PLT - PLATELET COUNT 189 10^3/uL (130-450); RED CELL DISTRIBUTION WIDTH 15.7 % (12.0-15.0); WHITE BLOOD COUNT 7.3 x10^3/uL (4.8-10.8)
[2021-08-22 16:01] LABS: ALBUMIN 3.7 g/dL (3.2-5.5); ALBUMIN/GLOBULIN RATIO 1.5 (1.0-2.2); BILIRUBIN,TOTAL 0.3 mg/dL (0.2-1.0); CALCIUM 8.4 mg/dL (8.5-10.3); POTASSIUM 5.1 mmol/L (3.5-5.0); TOTAL PROTEIN 6.2 g/dL (6.7-8.2)
== END 2021-08-22 10:20 | disposition home or self-care (01) ==
LOC: LAB.S 10:19
PROVIDERS: ATTEND Internal Medicine
DX: N18.9 Chronic kidney disease, unspecified (principal)
CPT/HCPCS: 36415; 80053; 85025

== ENCOUNTER 2021-09-11 12:31 | Outpatient (CLI) | payer MEDICARE, MEDICAID | END 2021-09-11 12:32 | disposition critical access hospital (66) | LOC: EMS 12:31 | DX: T83.011A Breakdown (mechanical) of indwelling urethral catheter, initial encounter (principal); R33.9 Retention of urine, unspecified | CPT/HCPCS: A0425; A0429 ==

== ENCOUNTER 2021-09-11 13:03 | Emergency (ER) | payer MEDICARE, MEDICAID ==
--- NOTE | 2021-09-11 14:24 | ED Physician Documentation ---
History of Present Illness - Stated complaint Stated Complaint: CATH ISSUE - Chief complaint Chief Complaint: Abd Pain - History obtained from History obtained from: Patient, EMS - History of Present Illness Timing: Today Pain level max: 0 Pain level now: 0 - Additonal information Additional information: 80-year-old male brought in by EMS today for a Alejandre catheter that is unable to be removed. He states that home health was attempting to remove the catheter today, they could not so they cut the catheter, the balloon however did not apparently deflate and the catheter cannot be removed. He states he is not draining any urine for the last 2 hours either. No fevers. No chills. Review of Systems Constitutional: denies: Fever, Chills GI: denies: Vomiting, Diarrhea Skin: denies: Rash Musculoskeletal: denies: Neck pain, Back pain Neurologic: denies: Headache PD PAST MEDICAL HISTORY - Past Medical History Cardiovascular: Hypertension, High cholesterol, Coronary artery disease, [place], Other Respiratory: COPD Neuro: Other Endocrine/Autoimmune: Type 2 diabetes GI: GERD, Hiatal hernia : Renal insuffiency HEENT: None Psych: Depression Musculoskeletal: Chronic back pain Derm: None - Past Surgical History Past Surgical History: Yes Cardiovascular: Other - Present Medications Home Medications: Ambulatory Orders Medication Instructions Recorded Confirmed Aspirin [Children's Aspirin] 81 mg PO DAILY 08/11/14 12/29/19 Brimonidine Tartrate [Alphagan P] 1 drops EACHEYE BID 08/11/14 12/29/19 Calcium Citrate/Vitamin D3 1 each PO DAILY 08/11/14 12/29/19 [Calcium Citrate - Vit D Tablet] Fluoxetine HCl [Prozac] 40 mg PO DAILY 08/11/14 12/29/19 Insulin Aspart [Novolog Penfill] 2 - 35 units SQ AC 08/11/14 12/29/19 Insulin Glargine [Lantus] 35 units SQ DAILY 08/11/14 12/29/19 Latanoprost 1 drops EACHEYE QPM 08/11/14 12/29/19 Methadone HCl [Dolophine HCl] 5 mg PO BID 08/11/14 12/29/19 Omeprazole [Prilosec] 20 mg PO DAILY 08/11/14 12/29/19 allopurinoL [Allopurinol] 100 mg PO DAILY 08/11/14 12/29/19 amLODIPine [Norvasc] 5 mg PO DAILY 08/11/14 12/29/19 Albuterol Sulfate [Albuterol 2 puffs INH Q4H PRN 11/19/19 12/29/19 Sulfate Hfa] Pregabalin [Lyrica] 100 mg PO DAILY 11/19/19 12/29/19 Umeclidinium Brm/Vilanterol Tr 1 puffs INH DAILY 11/19/19 12/29/19 [Anoro Ellipta 62.5-25 Mcg INH] traZODone [Desyrel] 75 mg PO QPM PRN 11/28/19 12/29/19 Atorvastatin [Lipitor] 10 mg PO QPM 12/29/19 12/29/19 Pregabalin 200 mg PO QPM 12/29/19 12/29/19 Apixaban [Eliquis] 2.5 mg PO BID #60 tab 12/31/19 Enalapril Maleate [Vasotec] 5 mg PO DAILY #0 12/31/19 12/29/19 Furosemide [Lasix] 40 mg PO BID #60 tablet 12/31/19 Tamsulosin [Flomax] 0.4 mg PO DAILY #30 capsule 12/31/19 - Allergies Allergies/Adverse Reactions: Allergies Allergy/AdvReac Type Severity Reaction Status Date / Time No Known Drug Allergies Allergy Verified 09/11/21 13:11 - Social History Does the pt smoke?: No Smoking Status: Never smoker Does the pt drink ETOH?: No Does the pt have substance abuse?: No - POLST Patient has POLST: No POLST Status: Full Code PD ED PE NORMAL - Vitals Vital signs reviewed: Yes - General General: Alert and oriented X 3, No acute distress - HEENT HEENT: Moist mucous membranes - Neck Neck: Supple, no meningeal sign - Cardiac Cardiac: RRR - Respiratory Respiratory: No respiratory distress, Clear bilaterally - Abdomen Abdomen: Soft, Non tender, Non distended - Derm Derm: Warm and dry - Neuro Neuro: Alert and oriented X 3 - Psych Psych: Normal mood, Normal affect Results - Vitals Vitals: Vital Signs - 24 hr 09/11/21 13:12 Temperature 37.2 C Heart Rate 85 Respiratory 20 Rate Blood Pressure 169/73 H O2 Saturation 92 Oxygen O2 Source Room air PD MEDICAL DECISION MAKING - ED course Complexity details: re-evaluated patient, considered differential, d/w patient, d/w devops consultant ED course: Bedside ultrasound shows about 350 mL's in the bladder. There is debris throughout the bladder. We did attempt to irrigate the catheter, we could put fluid into the catheter, but were having difficulty removing it. Likely that the catheter is encrusted. The catheter is unable to be removed here. We do not have urology and so we will need to transfer the patient. Discussed the case with Dr. Salvador, emergency department physician at [facility] in [place] who graciously accepts in transfer. COBRA is completed. This document was made in part using voice recognition software. While efforts are made to proofread this document, sound alike and grammatical errors may occur. Departure - Departure Disposition: 02 Transfer Acute Care Hosp Clinical Impression: Urinary retention Alejandre catheter problem Qualifiers: Encounter type: initial encounter Qualified Code(s): T83.9XXA - Unspecified complication of genitourinary prosthetic device, implant and graft, initial encounter Condition: Stable
[2021-09-11 15:25] VITALS: BP 138/74
== END 2021-09-11 15:34 | disposition short-term general hospital (02) ==
LOC: EDUNIT# → ED 13:03
DX: T83.091A Other mechanical complication of indwelling urethral catheter, initial encounter (principal); R33.9 Retention of urine, unspecified; Z20.822 Contact with and (suspected) exposure to COVID-19
CPT/HCPCS: 51700; 51798; 99283

== ENCOUNTER 2021-09-11 15:26 | Outpatient (CLI) | payer MEDICARE, MEDICAID | END 2021-09-11 15:27 | disposition short-term general hospital (02) | LOC: EMS 15:26 | PROVIDERS: ATTEND Emergency Medicine | DX: T83.011A Breakdown (mechanical) of indwelling urethral catheter, initial encounter (principal); R33.8 Other retention of urine; I50.9 Heart failure, unspecified; I25.10 Atherosclerotic heart disease of native coronary artery without angina pectoris | CPT/HCPCS: A0425; A0428 ==

== ENCOUNTER 2021-09-26 11:46 | Outpatient (CLI) | payer MEDICARE, MEDICAID ==
[2021-09-26 14:57] LABS: HCT - HEMATOCRIT 35.9 % (42.0-52.0); HGB - HEMOGLOBIN 11.5 g/dL (14.0-18.0); MEAN CORPUSCULAR HEMOGLOBIN 31.1 pg (27.0-31.0); RED BLOOD COUNT 3.7 10^6/uL (4.70-6.10); RED CELL DISTRIBUTION WIDTH 14.3 % (12.0-15.0)
[2021-09-26 15:24] LABS: CREATININE,URINE 31.9 mg/dL; PROTEIN/CREATININE RATIO,URINE 0.3 (<=0.2)
[2021-09-26 15:32] LABS: CALCIUM 8.3 mg/dL (8.5-10.3); CREATININE 3.1 mg/dL (0.6-1.2); PHOSPHORUS 4.7 mg/dL (2.5-4.6); POTASSIUM 5.3 mmol/L (3.5-5.0); URIC ACID 4.8 mg/dL (2.6-7.2)
== END 2021-09-26 11:47 | disposition home or self-care (01) ==
LOC: LAB.S 11:46
PROVIDERS: ATTEND Internal Medicine Nephrology
DX: N05.9 Unspecified nephritic syndrome with unspecified morphologic changes (principal); D70.9 Neutropenia, unspecified; D63.1 Anemia in chronic kidney disease; E83.30 Disorder of phosphorus metabolism, unspecified; N25.81 Secondary hyperparathyroidism of renal origin; M10.00 Idiopathic gout, unspecified site; R80.9 Proteinuria, unspecified
CPT/HCPCS: 36415; 80048; 82570; 83970; 84100; 84156; 84550; 85027

== ENCOUNTER 2021-10-31 14:24 | Outpatient (CLI) | payer MEDICARE, MEDICAID ==
[2021-10-31 20:10] LABS: CALCIUM 8.9 mg/dL (8.5-10.3); CREATININE 2.7 mg/dL (0.6-1.2); PHOSPHORUS 3.8 mg/dL (2.5-4.6); POTASSIUM 5.7 mmol/L (3.5-5.0); URIC ACID 5.3 mg/dL (2.6-7.2)
== END 2021-10-31 14:25 | disposition home or self-care (01) ==
LOC: LAB.S 14:24
PROVIDERS: ATTEND Registered Nurse
DX: N18.9 Chronic kidney disease, unspecified (principal)
CPT/HCPCS: 36415; 80048; 84100; 84550

== ENCOUNTER 2021-11-18 08:00 | Outpatient (CLI) | payer MEDICARE, MEDICAID ==
[2021-11-18 16:02] LABS: BILIRUBIN,URINE NEGATIVE (NEGATIVE); GLUCOSE, URINE (UA) NEGATIVE (NEGATIVE); KETONES,URINE (UA) NEGATIVE (NEGATIVE); LEUKOCYTE ESTERASE, URINE LARGE (NEGATIVE); NITRITE,URINE NEGATIVE (NEGATIVE); OCCULT BLOOD,URINE SMALL (NEGATIVE); PROTEIN,URINE TRACE mg/dL (NEGATIVE); UROBILINOGEN,URINE 0.2 (NORMAL) E.U./dL (NORMAL)
[2021-11-18 16:13] LABS: CLARITY,URINE CLOUDY (CLEAR)
[2021-11-18 16:47] LABS: BACTERIA,URINE Moderate /HPF (None Seen); RBC,URINE 0-5 /HPF (0-5); SQUAMOUS EPITHELIAL CELL,UR RARE Squamous (<= Few); WBC,URINE >25 /HPF (0-3)
== END 2021-11-18 23:59 | disposition home or self-care (01) ==
LOC: LAB.S 08:00
PROVIDERS: ATTEND Urology
DX: R30.0 Dysuria (principal)
CPT/HCPCS: 81001; 87077; 87086; 87181

== ENCOUNTER 2022-01-09 11:11 | Outpatient (CLI) | payer MEDICARE, MEDICAID ==
[2022-01-09 14:33] LABS: HCT - HEMATOCRIT 34.2 % (42.0-52.0); HGB - HEMOGLOBIN 10.9 g/dL (14.0-18.0); MEAN CORPUSCULAR HGB CONC 31.9 g/dL (32.0-36.0); MEAN CORPUSCULAR VOLUME 97.2 fL (80.0-94.0); MEAN PLATELET VOLUME 10.7 fL (7.4-11.4); RED BLOOD COUNT 3.52 10^6/uL (4.70-6.10); RED CELL DISTRIBUTION WIDTH 14.9 % (12.0-15.0); WHITE BLOOD COUNT 8.1 x10^3/uL (4.8-10.8)
[2022-01-09 14:45] LABS: CALCIUM 8.8 mg/dL (8.5-10.3); CREATININE 2.7 mg/dL (0.6-1.2); POTASSIUM 4.5 mmol/L (3.5-5.0)
== END 2022-01-09 11:12 | disposition home or self-care (01) ==
LOC: LAB.S 11:11
PROVIDERS: ATTEND Internal Medicine Nephrology
DX: N05.9 Unspecified nephritic syndrome with unspecified morphologic changes (principal); D70.9 Neutropenia, unspecified; D63.1 Anemia in chronic kidney disease
CPT/HCPCS: 36415; 80048; 85027

== ENCOUNTER 2022-06-21 17:11 | Outpatient (CLI) | payer MEDICARE, MEDICAID | END 2022-06-21 17:12 | disposition EMS.NT | LOC: EMS 17:11 | DX: Z03.89 Encounter for observation for other suspected diseases and conditions ruled out (principal) ==

== ENCOUNTER 2022-08-01 08:23 | Outpatient (CLI) | payer MEDICARE, MEDICAID ==
[2022-08-01 14:53] LABS: BASOPHILS % (AUTO) 0.5 %; EOSINOPHILS # (AUTO) 0.3 10^3/uL (0.0-0.7); EOSINOPHILS % (AUTO) 2.9 %; HCT - HEMATOCRIT 31.6 % (42.0-52.0); HGB - HEMOGLOBIN 9.2 g/dL (14.0-18.0); LYMPHOCYTES # (AUTO) 2.5 10^3/uL (1.5-3.5); LYMPHOCYTES % (AUTO) 29.3 %; MEAN CORPUSCULAR HEMOGLOBIN 28.3 pg (27.0-31.0); MEAN CORPUSCULAR HGB CONC 29.1 g/dL (32.0-36.0); MEAN CORPUSCULAR VOLUME 97.2 fL (80.0-94.0); MEAN PLATELET VOLUME 10.7 fL (7.4-11.4); MONOCYTES # (AUTO) 0.8 10^3/uL (0.0-1.0); MONOCYTES % (AUTO) 9.2 %; NEUTROPHILS % (AUTO) 57.8 %; PLT - PLATELET COUNT 211 10^3/uL (130-450); RED BLOOD COUNT 3.25 10^6/uL (4.70-6.10); RED CELL DISTRIBUTION WIDTH 16.4 % (12.0-15.0); WHITE BLOOD COUNT 8.6 x10^3/uL (4.8-10.8)
[2022-08-01 15:24] LABS: ALBUMIN 3.5 g/dL (3.2-5.5); ALBUMIN/GLOBULIN RATIO 1.2 (1.0-2.2); ALKALINE PHOSPHATASE 67 IU/L (42-121); ALT ALANINE AMINOTRANSFERASE 11 IU/L (10-60); AST ASPARTATE AMINOTRANSFERASE 12 IU/L (10-42); BILIRUBIN,TOTAL 0.5 mg/dL (0.2-1.0); BUN - BLOOD UREA NITROGEN 62 mg/dL (6-20); CALCIUM 9.1 mg/dL (8.5-10.3); CARBON DIOXIDE - CO2 24 mmol/L (21-32); CHLORIDE 110 mmol/L (101-111); CHOL/HDL RATIO 1.9 (<5.0); CHOLESTEROL 119 mg/dL; CREATININE 2.6 mg/dL (0.6-1.2); GFR - MDRD 24 (>89); GLUCOSE 78 mg/dL (70-100); HDL CHOLESTEROL 64 mg/dL; LDL CHOLESTEROL,CALCULATED 43 mg/dL; LDL/HDL RATIO 0.7 (<3.6); POTASSIUM 5.3 mmol/L (3.5-5.0); SODIUM 145 mmol/L (135-145); TOTAL PROTEIN 6.5 g/dL (6.7-8.2); TRIGLYCERIDES 61 mg/dL; VLDL CHOLESTEROL 12 mg/dL
[2022-08-01 15:56] LABS: CREATININE,URINE 39.9 mg/dL; MICROALBUM/CREATININE RATIO,UR 57.6 ug/mg (<30.0); MICROALBUMIN,URINE 2.3 mg/dL (0-300.0)
[2022-08-01 20:50] LABS: ESTIMATED AVERAGE GLUCOSE 128 mg/dL (70-100); HEMOGLOBIN A1c% 6.1 % (4.27-6.07)
== END 2022-08-01 08:24 | disposition home or self-care (01) ==
LOC: LAB.S 08:23
PROVIDERS: ATTEND Registered Nurse
DX: E10.21 Type 1 diabetes mellitus with diabetic nephropathy (principal); Z79.899 Other long term (current) drug therapy; Z13.220 Encounter for screening for lipoid disorders
CPT/HCPCS: 36415; 80053; 80061; 82043; 82570; 83036; 83721; 85025

== ENCOUNTER 2022-08-30 10:42 | Outpatient (CLI) | payer MEDICARE, MEDICAID ==
[2022-08-30 14:35] LABS: BILIRUBIN,URINE NEGATIVE (NEGATIVE); GLUCOSE, URINE (UA) NEGATIVE (NEGATIVE); KETONES,URINE (UA) NEGATIVE (NEGATIVE); LEUKOCYTE ESTERASE, URINE LARGE (NEGATIVE); NITRITE,URINE NEGATIVE (NEGATIVE); OCCULT BLOOD,URINE MODERATE (NEGATIVE); PROTEIN,URINE TRACE mg/dL (NEGATIVE); UROBILINOGEN,URINE 0.2 (NORMAL) E.U./dL (NORMAL)
[2022-08-30 15:22] LABS: CLARITY,URINE CLEAR (CLEAR)
[2022-08-30 15:35] LABS: WBC,URINE >25 /HPF (0-3)
[2022-08-30 15:36] LABS: BACTERIA,URINE Few /HPF (None Seen); RBC,URINE TNTC /HPF (0-5); SQUAMOUS EPITHELIAL CELL,UR RARE Squamous (<= Few)
== END 2022-08-30 10:43 | disposition home or self-care (01) ==
LOC: LAB.S 10:42
PROVIDERS: ATTEND Registered Nurse
DX: E10.21 Type 1 diabetes mellitus with diabetic nephropathy (principal); Z79.899 Other long term (current) drug therapy; Z13.220 Encounter for screening for lipoid disorders; R39.89 Other symptoms and signs involving the genitourinary system
CPT/HCPCS: 81001; 87077; 87086; 87181

== ENCOUNTER 2022-09-22 08:00 | Outpatient (CLI) | payer MEDICARE, MEDICAID ==
[2022-09-22 14:46] LABS: BILIRUBIN,URINE NEGATIVE (NEGATIVE); GLUCOSE, URINE (UA) NEGATIVE (NEGATIVE); KETONES,URINE (UA) NEGATIVE (NEGATIVE); LEUKOCYTE ESTERASE, URINE LARGE (NEGATIVE); NITRITE,URINE NEGATIVE (NEGATIVE); OCCULT BLOOD,URINE MODERATE (NEGATIVE); PROTEIN,URINE 30 mg/dL (NEGATIVE); UROBILINOGEN,URINE 0.2 (NORMAL) E.U./dL (NORMAL)
[2022-09-22 14:47] LABS: CLARITY,URINE CLOUDY (CLEAR)
[2022-09-22 14:53] LABS: BACTERIA,URINE Many /HPF (None Seen); RBC,URINE TNTC /HPF (0-5); SQUAMOUS EPITHELIAL CELL,UR FEW Squamous (<= Few); WBC CLUMPS,URINE PRESENT; WBC,URINE >25 /HPF (0-3)
== END 2022-09-22 23:59 | disposition home or self-care (01) ==
LOC: LAB.R 08:00
PROVIDERS: ATTEND Registered Nurse
DX: N39.0 Urinary tract infection, site not specified (principal)
CPT/HCPCS: 81001; 81003; 87077; 87086; 87181

== ENCOUNTER 2022-11-11 12:34 | Outpatient (CLI) | payer MEDICARE, MEDICAID | END 2022-11-11 23:59 | disposition left against medical advice (07) | LOC: EMS 12:34 | DX: S80.812A Abrasion, left lower leg, initial encounter (principal); S80.811A Abrasion, right lower leg, initial encounter; W01.0XXA Fall on same level from slipping, tripping and stumbling without subsequent striking against object, initial encounter; Y92.002 Bathroom of unspecified non-institutional (private) residence as the place of occurrence of the external cause; Z79.01 Long term (current) use of anticoagulants ==

== ENCOUNTER 2022-11-12 14:54 | Outpatient (CLI) | payer MEDICARE, MEDICAID | END 2022-11-12 14:55 | disposition left against medical advice (07) | LOC: EMS 14:54 | DX: Z03.89 Encounter for observation for other suspected diseases and conditions ruled out (principal); Z79.01 Long term (current) use of anticoagulants ==

== ENCOUNTER 2022-12-13 18:15 | Outpatient (CLI) | payer MEDICARE, MEDICAID | END 2022-12-13 18:16 | disposition EMS.NT | LOC: EMS 18:15 | DX: Z03.89 Encounter for observation for other suspected diseases and conditions ruled out (principal) ==

== ENCOUNTER 2023-01-09 16:06 | Outpatient (CLI) | payer MEDICARE, MEDICAID | END 2023-01-09 23:59 | disposition EMS.NT | LOC: EMS 16:06 | DX: R53.1 Weakness (principal) ==

== ENCOUNTER 2023-03-10 10:09 | Outpatient (CLI) | payer MEDICARE, MEDICAID | END 2023-03-10 23:59 | disposition left against medical advice (07) | LOC: EMS 10:09 | DX: S00.81XA Abrasion of other part of head, initial encounter (principal); W01.0XXA Fall on same level from slipping, tripping and stumbling without subsequent striking against object, initial encounter; Y92.009 Unspecified place in unspecified non-institutional (private) residence as the place of occurrence of the external cause; Z79.01 Long term (current) use of anticoagulants ==

== ENCOUNTER 2023-03-12 10:57 | Outpatient (CLI) | payer MEDICARE, MEDICAID ==
[2023-03-12 14:58] LABS: BASOPHILS % (AUTO) 0.7 %; EOSINOPHILS # (AUTO) 0.2 10^3/uL (0.0-0.7); EOSINOPHILS % (AUTO) 3.8 %; HCT - HEMATOCRIT 29.2 % (42.0-52.0); HGB - HEMOGLOBIN 8.6 g/dL (14.0-18.0); LYMPHOCYTES # (AUTO) 1.3 10^3/uL (1.5-3.5); LYMPHOCYTES % (AUTO) 20.4 %; MEAN CORPUSCULAR HEMOGLOBIN 28.4 pg (27.0-31.0); MEAN CORPUSCULAR HGB CONC 29.5 g/dL (32.0-36.0); MEAN CORPUSCULAR VOLUME 96.4 fL (80.0-94.0); MEAN PLATELET VOLUME 11.4 fL (7.4-11.4); MONOCYTES # (AUTO) 0.6 10^3/uL (0.0-1.0); MONOCYTES % (AUTO) 9.1 %; NEUTROPHILS % (AUTO) 65.2 %; PLT - PLATELET COUNT 172 10^3/uL (130-450); RED BLOOD COUNT 3.03 10^6/uL (4.70-6.10); RED CELL DISTRIBUTION WIDTH 17.7 % (12.0-15.0); WHITE BLOOD COUNT 6.1 x10^3/uL (4.8-10.8)
[2023-03-12 15:52] LABS: FERRITIN 25.5 ng/mL (23.9-336.2)
== END 2023-03-12 10:58 | disposition home or self-care (01) ==
LOC: LAB.S 10:57
PROVIDERS: ATTEND Internal Medicine Nephrology
DX: D70.9 Neutropenia, unspecified (principal); D63.1 Anemia in chronic kidney disease; D50.0 Iron deficiency anemia secondary to blood loss (chronic)
CPT/HCPCS: 36415; 82728; 83540; 84466; 85025

== ENCOUNTER 2023-05-08 16:27 | Outpatient (CLI) | payer MEDICARE, MEDICAID | END 2023-05-08 16:28 | disposition EMS.NT | LOC: EMS 16:27 | DX: Z03.89 Encounter for observation for other suspected diseases and conditions ruled out (principal) ==

== ENCOUNTER 2023-06-04 16:43 | Outpatient (CLI) | payer MEDICARE, MEDICAID | END 2023-06-04 23:59 | disposition EMS.NT | LOC: EMS 16:43 | DX: Z03.89 Encounter for observation for other suspected diseases and conditions ruled out (principal); Z79.01 Long term (current) use of anticoagulants ==

== ENCOUNTER 2023-06-19 11:06 | Emergency (ER) | payer MEDICAID, MEDICARE ==
--- NOTE | 2023-06-19 11:59 | ED Physician Documentation ---
History of Present Illness - Stated complaint Stated Complaint: UNWELL,EXHAUSTION - Chief complaint Chief Complaint: General - History obtained from History obtained from: Patient, Family - Additonal information Additional information: 82-year-old male with history of CHF, mild COPD, BRENDON, hyperkalemia, hypertension, diabetes melitis, hyperlipidemia, GERD, depression, coronary artery disease, frontal mass of brain, chronic Wright catheter, atrial fibrillation presents the emergency department today via ambulance for worsening fatigue and dyspnea on exertion. Patient lives at home with his partner, his partner states that this has been ongoing since Thursday 06/15 of this generalized fatigue, he says he wakes up in the morning and goes to the couch sleeps all day and then goes back to bed and sleeps all night. He says he is unable to take more than 3-4 steps at a time because of how much shortness of breath he is having with any sort of exertional activity. He denies any recent fevers or chi lls denies any abdominal pain denies chest pain no nausea vomiting diarrhea. He has had no recent medication changes, no recent URI symptoms. He has a chronic Wright he is unable to say why this is originally placed but urine does appear to be quite cloudy.He denies any recent falls he said he had a fall on [place] but says that this is unrelated to that did not go to seek emergency care after his minor ground-level fall that he had on [place] denies ever hitting his head denies any strokelike symptoms PD PAST MEDICAL HISTORY - Past Medical History Past Medical History: Yes Cardiovascular: Congestive heart failure, Hypertension, High cholesterol, Coronary artery disease, [place], Other Respiratory: COPD Neuro: Tremors, Other Endocrine/Autoimmune: Type 2 diabetes GI: GERD, Hiatal hernia : Retention, Renal insuffiency, Other HEENT: None Psych: Depression Musculoskeletal: Chronic back pain Derm: None - Past Surgical History Past Surgical History: Yes Cardiovascular: CABG, Other - Present Medications Home Medications: Ambulatory Orders Medication Instructions Recorded Confirmed Fluoxetine HCl [Prozac] 40 mg PO DAILY 08/11/14 06/19/23 Insulin Aspart [Novolog Penfill] 2 - 35 units SQ AC 08/11/14 06/19/23 Insulin Glargine [Lantus] 35 units SQ DAILY 08/11/14 06/19/23 Latanoprost 1 drops EACHEYE QPM 08/11/14 06/19/23 allopurinoL [Allopurinol] 300 mg PO DAILY 08/11/14 06/19/23 Albuterol Sulfate [Albuterol 2 puffs INH Q4H PRN 11/19/19 06/19/23 Sulfate Hfa] traZODone [Desyrel] 150 mg PO QPM PRN 11/28/19 06/19/23 Atorvastatin [Lipitor] 20 mg PO QPM 12/29/19 06/19/23 Pregabalin 300 mg PO QPM 12/29/19 06/19/23 Apixaban [Eliquis] 2.5 mg PO BID #60 tab 12/31/19 06/19/23 Tamsulosin [Flomax] 0.4 mg PO DAILY #30 capsule 12/31/19 06/19/23 Brimonidine 0.1% Ophth Drops 1 drops EACHEYE DAILY 06/19/23 06/19/23 [Alphagan P 0.1% Ophth Drops] Enalapril Maleate [Vasotec] 2.5 mg PO DAILY 06/19/23 06/19/23 Fluticasone/Umeclidin/Vilanter 1 each IH DAILY 06/19/23 06/19/23 [Trelegy Ellipta 100-62.5-25] Furosemide [Lasix] 10 mg PO BID 06/19/23 06/19/23 Isosorbide Mononitrate ER [Imdur] 30 mg PO DAILY 06/19/23 06/19/23 Melatonin 30 mg PO HS 06/19/23 06/19/23 buPROPion HCL [Bupropion HCl] 75 mg PO BID 06/19/23 06/19/23 - Allergies Allergies/Adverse Reactions: Allergies Allergy/AdvReac Type Severity Reaction Status Date / Time No Known Drug Allergies Allergy Verified 06/19/23 11:22 - Social History Does the pt smoke?: No Smoking Status: Former smoker Does the pt drink ETOH?: No Does the pt have substance abuse?: Yes Substance Use and Type: Marijuana - Immunizations Immunizations are current?: Yes - POLST Patient has POLST: No POLST Status: Full Code PD ED PE NORMAL - Vitals Vital signs reviewed: Yes - General General: Alert and oriented X 3 - HEENT HEENT: Atraumatic, PERRL. No: Moist mucous membranes - Neck Neck: Supple, no meningeal sign - Cardiac Cardiac: No murmur, No gallop, Strong equal pulses, Other (distant heart sounds) - Respiratory Respiratory: No respiratory distress, Other (diminished breath sounds, mild wheezing at the bilat bases) - Abdomen Abdomen: Normal bowel sounds, Non tender, Other (no CVA tenderness) - Male Male : Other (Chronic indwelling Wright with cloudy/sedimentation urine ) - Rectal Rectal: Other (local company truck driver Ami hutchins present for rectal exam, no blood visualized, no internal or externam hemrrhoids, normal sphincter) - Derm Derm: Normal color - Extremities Extremities: Other (Generalized weakness) - Neuro Neuro: Alert and oriented X 3, No motor deficit, Other (Generalized UE tremors) Eye Opening: Spontaneous Motor: Obeys Commands - Psych Psych: Normal mood Results - Vitals Vitals: Vital Signs - 24 hr 06/19/23 06/19/23 06/19/23 11:22 14:11 14:26 Temperature 36.9 C 36.7 C 98 C H Heart Rate 68 Heart Rate [ 81 79 Monitoring electrodes] Respiratory 20 19 18 Rate Blood Pressure 96/45 L Blood Pressure 104/50 L 107/50 L [Right Brachial artery] O2 Saturation 94 96 96 If not protocol : Oxygen Flow, liters/minute 06/19/23 06/19/23 06/19/23 15:12 17:00 17:24 Temperature 36.9 C 37.1 C Heart Rate 72 Heart Rate [ 76 74 Monitoring electrodes] Respiratory 18 17 20 Rate Blood Pressure 101/64 Blood Pressure 96/48 L 103/84 H [Right Brachial artery] O2 Saturation 93 97 94 If not protocol 0 : Oxygen Flow, liters/minute 06/19/23 06/19/23 06/19/23 19:00 21:00 21:30 Temperature Heart Rate 78 73 73 Heart Rate [ Monitoring electrodes] Respiratory 16 17 19 Rate Blood Pressure 113/68 104/53 L 110/68 Blood Pressure [Right Brachial artery] O2 Saturation 92 95 94 If not protocol : Oxygen Flow, liters/minute 06/19/23 22:15 Temperature 36.6 C Heart Rate Heart Rate [ 73 Monitoring electrodes] Respiratory 18 Rate Blood Pressure Blood Pressure 113/48 L [Right Brachial artery] O2 Saturation 95 If not protocol : Oxygen Flow, liters/minute Oxygen O2 Source Room air - EKG (time done) 1249 EKG releavant findings:: EKG personally interpreted by author of this note. Relevant findings are: Rate: Rate (enter#) (76) Rhythm: NSR Collyer: LAD Intervals: Prolonged [place], RBBB Ischemia: Hyperacute T waves - Labs Labs: Microbiology 06/19/23 12:47 Occult Blood - Final Stool Laboratory Tests 06/19/23 06/19/23 06/19/23 12:00 12:00 12:00 WBC 6.8 RBC 1.51 L Hgb 4.8 L* Hct 17.4 L* MCV 115.2 H MCH 31.8 H MCHC 27.6 L RDW 21.8 H Plt Count 172 MPV 10.7 Neut # (Auto) 5.4 Lymph # (Auto) 0.7 L Kendall # (Auto) 0.5 Eos # (Auto) 0.1 Baso # (Auto) 0.0 Absolute Nucleated RBC 0.06 Nucleated RBC % 0.9 Sodium 137 Potassium 6.0 H* Chloride 111 Carbon Dioxide 18 L Anion Gap 8.0 BUN 98 H* Creatinine 3.7 H Estimated GFR (MDRD) 16 L Glucose 97 Lactic Acid Calcium 8.2 L Magnesium 2.2 Total Bilirubin 0.5 AST 22 ALT 8 L Alkaline Phosphatase 52 Troponin I High Sens B-Natriuretic Peptide Total Protein 5.3 L Albumin 3.4 Globulin 1.9 L Albumin/Globulin Ratio 1.8 Lipase 26 TSH 2.64 Urine Color Urine Clarity Urine pH Ur Specific [place] Urine Protein Urine Glucose (UA) Urine Ketones Urine Occult Blood Urine Nitrite Urine Bilirubin Urine Urobilinogen Ur Leukocyte Esterase Urine RBC Urine WBC Ur Squamous Epith Cells Urine Bacteria Ur Microscopic Review Urine Culture Comments Nasal Adenovirus (PCR) NOT DETECTED Nasal B. parapertussis DNA (PCR) NOT DETECTED Nasal Coronavir 229E PCR NOT DETECTED Nasal Coronavir HKU1 PCR NOT DETECTED Nasal Coronavir NL63 PCR NOT DETECTED Nasal Coronavir OC43 PCR NOT DETECTED Nasal Enterovir/Rhinovir PCR NOT DETECTED Nasal Influenza B PCR NOT DETECTED Nasal Influenza A PCR NOT DETECTED Nasal Parainfluen 1 PCR NOT DETECTED Nasal Parainfluen 2 PCR NOT DETECTED Nasal Parainfluen 3 PCR NOT DETECTED Nasal Parainfluen 4 PCR NOT DETECTED Nasal RSV (PCR) NOT DETECTED Nasal B.pertussis DNA PCR NOT DETECTED Nasal C.pneumoniae (PCR) NOT DETECTED [place] Human Metapneumo PCR NOT DETECTED Nasal M.pneumoniae (PCR) NOT DETECTED Nasal SARS-CoV-2 (PCR) NOT DETECTED Blood Type Antibody Screen Crossmatch IS Only 06/19/23 06/19/23 06/19/23 12:00 12:10 12:10 WBC RBC Hgb Hct MCV MCH MCHC RDW Plt Count MPV Neut # (Auto) Lymph # (Auto) Kendall # (Auto) Eos # (Auto) Baso # (Auto) Absolute Nucleated RBC Nucleated RBC % Sodium Potassium Chloride Carbon Dioxide Anion Gap BUN Creatinine Estimated GFR (MDRD) Glucose Lactic Acid 0.8 Calcium Magnesium Total Bilirubin AST ALT Alkaline Phosphatase Troponin I High Sens 253.2 H* B-Natriuretic Peptide 863 H Total Protein Albumin Globulin Albumin/Globulin Ratio Lipase TSH Urine Color Urine Clarity Urine pH Ur Specific [place] Urine Protein Urine Glucose (UA) Urine Ketones Urine Occult Blood Urine Nitrite Urine Bilirubin Urine Urobilinogen Ur Leukocyte Esterase Urine RBC Urine WBC Ur Squamous Epith Cells Urine Bacteria Ur Microscopic Review Urine Culture Comments Nasal Adenovirus (PCR) Nasal B. parapertussis DNA (PCR) Nasal Coronavir 229E PCR Nasal Coronavir HKU1 PCR Nasal Coronavir NL63 PCR Nasal Coronavir OC43 PCR Nasal Enterovir/Rhinovir PCR Nasal Influenza B PCR Nasal Influenza A PCR Nasal Parainfluen 1 PCR Nasal Parainfluen 2 PCR Nasal Parainfluen 3 PCR Nasal Parainfluen 4 PCR Nasal RSV (PCR) Nasal B.pertussis DNA PCR Nasal C.pneumoniae (PCR) [place]ou[place] Human Metapneumo PCR Nasal M.pneumoniae (PCR) Nasal SARS-CoV-2 (PCR) Blood Type Antibody Screen Crossmatch IS Only 06/19/23 06/19/23 06/19/23 12:52 14:35 15:26 WBC RBC Hgb Hct MCV MCH MCHC RDW Plt Count MPV Neut # (Auto) Lymph # (Auto) Kendall # (Auto) Eos # (Auto) Baso # (Auto) Absolute Nucleated RBC Nucleated RBC % Sodium Potassium Chloride Carbon Dioxide Anion Gap BUN Creatinine Estimated GFR (MDRD) Glucose Lactic Acid Calcium Magnesium Total Bilirubin AST ALT Alkaline Phosphatase Troponin I High Sens 236.8 H* B-Natriuretic Peptide Total Protein Albumin Globulin Albumin/Globulin Ratio Lipase TSH Urine Color YELLOW Urine Clarity CLEAR Urine pH 6.0 Ur Specific [place] 1.010 Urine Protein NEGATIVE Urine Glucose (UA) NEGATIVE Urine Ketones NEGATIVE Urine Occult Blood NEGATIVE Urine Nitrite NEGATIVE Urine Bilirubin NEGATIVE Urine Urobilinogen 0.2 (NORMAL) Ur Leukocyte Esterase SMALL H Urine RBC 0-5 Urine WBC 6-10 H Ur Squamous Epith Cells NONE SEEN Urine Bacteria Rare Ur Microscopic Review INDICATED Urine Culture Comments INDICATED Nasal Adenovirus (PCR) Nasal B. parapertussis DNA (PCR) Nasal Coronavir 229E PCR Nasal Coronavir HKU1 PCR Nasal Coronavir NL63 PCR Nasal Coronavir OC43 PCR Nasal Enterovir/Rhinovir PCR Nasal Influenza B PCR Nasal Influenza A PCR Nasal Parainfluen 1 PCR Nasal Parainfluen 2 PCR Nasal Parainfluen 3 PCR Nasal Parainfluen 4 PCR Nasal RSV (PCR) Nasal B.pertussis DNA PCR Nasal C.pneumoniae (PCR) [place] Human Metapneumo PCR Nasal M.pneumoniae (PCR) Nasal SARS-CoV-2 (PCR) Blood Type A POSITIVE Antibody Screen NEGATIVE Crossmatch IS Only See Detail 06/19/23 06/19/23 06/19/23 18:09 18:09 18:09 WBC RBC Hgb 5.8 L* Hct 19.9 L* MCV MCH MCHC RDW Plt Count MPV Neut # (Auto) Lymph # (Auto) Kendall # (Auto) Eos # (Auto) Baso # (Auto) Absolute Nucleated RBC Nucleated RBC % Sodium 141 Potassium 6.0 H* Chloride 113 H Carbon Dioxide 18 L Anion Gap 10.0 BUN 96 H* Creatinine 3.7 H Estimated GFR (MDRD) 16 L Glucose 117 H Lactic Acid Calcium 8.7 Magnesium Total Bilirubin AST ALT Alkaline Phosphatase Troponin I High Sens 248.8 H* B-Natriuretic Peptide Total Protein Albumin Globulin Albumin/Globulin Ratio Lipase TSH Urine Color Urine Clarity Urine pH Ur Specific [place] Urine Protein Urine Glucose (UA) Urine Ketones Urine Occult Blood Urine Nitrite Urine Bilirubin Urine Urobilinogen Ur Leukocyte Esterase Urine RBC Urine WBC Ur Squamous Epith Cells Urine Bacteria Ur Microscopic Review Urine Culture Comments Nasal Adenovirus (PCR) Nasal B. parapertussis DNA (PCR) Nasal Coronavir 229E PCR Nasal Coronavir HKU1 PCR Nasal Coronavir NL63 PCR Nasal Coronavir OC43 PCR Nasal Enterovir/Rhinovir PCR Nasal Influenza B PCR Nasal Influenza A PCR Nasal Parainfluen 1 PCR Nasal Parainfluen 2 PCR Nasal Parainfluen 3 PCR Nasal Parainfluen 4 PCR Nasal RSV (PCR) Nasal B.pertussis DNA PCR Nasal C.pneumoniae (PCR) [place] Human Metapneumo PCR Nasal M.pneumoniae (PCR) Nasal SARS-CoV-2 (PCR) Blood Type Antibody Screen Crossmatch IS Only 06/19/23 20:31 WBC RBC Hgb Hct MCV MCH MCHC RDW Plt Count MPV Neut # (Auto) Lymph # (Auto) Kendall # (Auto) Eos # (Auto) Baso # (Auto) Absolute Nucleated RBC Nucleated RBC % Sodium Potassium 5.3 H Chloride Carbon Dioxide Anion Gap BUN Creatinine Estimated GFR (MDRD) Glucose Lactic Acid Calcium Magnesium Total Bilirubin AST ALT Alkaline Phosphatase Troponin I High Sens B-Natriuretic Peptide Total Protein Albumin Globulin Albumin/Globulin Ratio Lipase TSH Urine Color Urine Clarity Urine pH Ur Specific [place] Urine Protein Urine Glucose (UA) Urine Ketones Urine Occult Blood Urine Nitrite Urine Bilirubin Urine Urobilinogen Ur Leukocyte Esterase Urine RBC Urine WBC Ur Squamous Epith Cells Urine Bacteria Ur Microscopic Review Urine Culture Comments Nasal Adenovirus (PCR) Nasal B. parapertussis DNA (PCR) Nasal Coronavir 229E PCR Nasal Coronavir HKU1 PCR Nasal Coronavir NL63 PCR Nasal Coronavir OC43 PCR Nasal Enterovir/Rhinovir PCR Nasal Influenza B PCR Nasal Influenza A PCR Nasal Parainfluen 1 PCR Nasal Parainfluen 2 PCR Nasal Parainfluen 3 PCR Nasal Parainfluen 4 PCR Nasal RSV (PCR) Nasal B.pertussis DNA PCR Nasal C.pneumoniae (PCR) [place] Human Metapneumo PCR Nasal M.pneumoniae (PCR) Nasal SARS-CoV-2 (PCR) Blood Type Antibody Screen Crossmatch IS Only - Rads (name of study) chest Xray Relevant Findings:: Final report received (Bilateral pneumonia, right lobe appears worse), EMP independent interpretation of test Chest Xray Relevant Findings:: Final report received, EMP independent interpretation of test (Bi) PD Medical Decision Making - ED course ED course: 82-year-old male with complex past medical history comes into the emergency department for worsening increased fatigue and increased dyspnea on exertion. Upon arrival blood pressure was originally 96/45 with a MAP of 54. 500 cc IV fluids originally ordered will consider adding another 500 cc after I get BNP back. He is afebrile, he does have diminished breath sounds with some wheezing at the bases, ordered a two-view chest x-ray. CBC, CMP ordered as well as a lactate and BMP for further investigation of any possible clues as to what is causing his increased generalized weakness. Plan to swap wright and do UA with new Wright bag. Patient's hemoglobin is found to be 4.8. Hematocrit 17.4. Potassium is critically high at 6.0, BUN 98, creatinine 3.7, GFR 16. When I informed patient of these critical labs he says that he does have a history of needing to have blood transfusions before but does not remember why, last blood transfusion was about 3 to 4 months ago. Patient says that he is willing to consent to a blood transfusion I will complete that paperwork now we will also do a stool guaiac patient denies any BRBPR, no dark black bowel movements he says that he normally has about 2 bowel movements a week and says that the last bowel movement was as normal as it normally is for him. Serial troponins have been ordered initial troponin came back at 253 this is most likely related to demand ischemia patient continues to deny any chest pain. For patient's hyperkalemia he was given 1 g of IV Fe calcium chloride, 1 amp of bicarb. 1324: Unit [facility] notified pt will need to be transferred and process has begun to start looking at outside hospitals for tx Chest Xray reveals what appears to be bilateral pneumonia, right lobe worse. Will order two sets of blood cultures and will initate pt on Ceftriaxone 1g and 500mg IV Azithromycin. Repeat hemoglobin 5.8 after 1 unit of RBCs hematocrit 19.9. Potassium remains at 6.0 after receiving 1G of calcium chloride and 1 amp of bicarb. BUN remained stable at 96. 1908: Son I will update as to where patient will go in terms of transferring to outside hospital unit [facility] continues to diligently try to find either a stepdown unit or ICU placement. Will order 1 more unit of RBCs and continue to attempt to correct hyperkalemia. One amp of D50 and and 10 units IV regular insulin to help correct hyperkalemia, repeat K is down to 5.0. 2226: Report given to Dr. Saad ALVAREZ MD due to change of shift. It does sound like pt is going to [facility]. Departure - Departure Forms: PCP List
[2023-06-19] MEDS: SODIUM CHLORIDE 0.9% 500 ML IV ONE (12:07)
[2023-06-19 12:18] LABS: BASOPHILS % (AUTO) 0.1 %; EOSINOPHILS # (AUTO) 0.1 10^3/uL (0.0-0.7); EOSINOPHILS % (AUTO) 1.9 %; LYMPHOCYTES # (AUTO) 0.7 10^3/uL (1.5-3.5); LYMPHOCYTES % (AUTO) 10.9 %; MEAN CORPUSCULAR HEMOGLOBIN 31.8 pg (27.0-31.0); MEAN CORPUSCULAR HGB CONC 27.6 g/dL (32.0-36.0); MEAN CORPUSCULAR VOLUME 115.2 fL (80.0-94.0); MEAN PLATELET VOLUME 10.7 fL (7.4-11.4); MONOCYTES # (AUTO) 0.5 10^3/uL (0.0-1.0); MONOCYTES % (AUTO) 6.6 %; NEUTROPHILS # (AUTO) 5.4 10^3/uL (1.5-6.6); NEUTROPHILS % (AUTO) 79.2 %; NRBC ABSOLUTE COUNT (AUTO) 0.06 x10^3/uL; NUCLEATED RED BLOOD CELLS AUTO 0.9 /100WBC; PLT - PLATELET COUNT 172 10^3/uL (130-450); RED BLOOD COUNT 1.51 10^6/uL (4.70-6.10); RED CELL DISTRIBUTION WIDTH 21.8 % (12.0-15.0); WHITE BLOOD COUNT 6.8 x10^3/uL (4.8-10.8)
[2023-06-19 12:25] LABS: HCT - HEMATOCRIT 17.4 % (42.0-52.0); HGB - HEMOGLOBIN 4.8 g/dL (14.0-18.0)
[2023-06-19 12:31] LABS: ALBUMIN 3.4 g/dL (3.2-5.5)
[2023-06-19 12:35] LABS: ALBUMIN/GLOBULIN RATIO 1.8 (1.0-2.2); BILIRUBIN,TOTAL 0.5 mg/dL (0.2-1.0); CALCIUM 8.2 mg/dL (8.5-10.3); CREATININE 3.7 mg/dL (0.6-1.3); MAGNESIUM 2.2 mg/dL (1.7-2.3); TOTAL PROTEIN 5.3 g/dL (6.4-8.9)
--- NOTE | 2023-06-19 12:45 | XRAY Report ---
PROCEDURE: Chest 2V INDICATIONS: dyspnea on exertion TECHNIQUE: 2 views of the chest were acquired. COMPARISON: None. FINDINGS: Surgical changes and devices: None. Lungs and pleura: No pleural effusions or pneumothorax. There is moderate airspace opacity within th e right lower lung. Mild diffuse reticulonodular pulmonary opacity. Mediastinum: Mediastinal contours appear normal. Heart size is enlarged. Bones and chest wall: No suspicious bony lesions. Overlying soft tissues appear unremarkable. IMPRESSION: Bilateral pneumonia, worst in the right lower lung. Follow-up PA and lateral chest x-rays or chest CT is recommended to ensure resolution, and to exclude underlying neoplasm. Reviewed by: Mari Oliver MD on 06/19/2023 12:44 PM PST Approved by: Mari Oliver MD on 06/19/2023 12:44 PM [facility] Station ID: [id number]
[2023-06-19 12:49] LABS: THYROID STIMULATING HORMONE 2.64 uIU/mL (0.34-5.60)
[2023-06-19 13:13] LABS: B. PARAPERTUSSIS- RESP PCR PAN NOT DETECTED; B. PERTUSSIS- RESP PCR PANEL NOT DETECTED; C. PNEUMONIAE- RESP PCR PANEL NOT DETECTED; CORONAVIRUS 229E-RESP PCR NOT DETECTED; CORONAVIRUS HKU1-RESP PCR NOT DETECTED; CORONAVIRUS NL63-RESP PCR NOT DETECTED; CORONAVIRUS OC43-RESP PCR NOT DETECTED; HUMAN METAPNEUMOVIRUS NOT DETECTED; INFLUENZA A- RESP PCR PANEL NOT DETECTED; INFLUENZA B - RESP PCR PANEL NOT DETECTED; M. PNEUMONIAE- RESP PCR PANEL NOT DETECTED; PARAINFLUENZA VIRUS 1 NOT DETECTED; PARAINFLUENZA VIRUS 2 NOT DETECTED; PARAINFLUENZA VIRUS 3 NOT DETECTED; PARAINFLUENZA VIRUS 4 NOT DETECTED; RHINOVIRUS/ENTEROVIRUS NOT DETECTED; RSV- RESP PCR PANEL NOT DETECTED; SARS-CoV-2 -RESP PCR PANEL NOT DETECTED
[2023-06-19] MEDS: CALCIUM CHLORIDE ABBOJECT 1000MG/10 ML SYRINGE IVP STA (13:46)
[2023-06-19] MEDS: SODIUM BICARBONATE ABBOJECT 50 MEQ/50 ML SYRINGE IVP STA (13:47)
[2023-06-19] MEDS: LIDOCAINE 2% URO-JET 5 ML SYRINGE UR STA (14:25)
[2023-06-19] MEDS: LIDOCAINE VISCOUS 2% 15 ML ORAL SYRINGE MM STA (14:43)
[2023-06-19 15:10] LABS: BILIRUBIN,URINE NEGATIVE (NEGATIVE); GLUCOSE, URINE (UA) NEGATIVE (NEGATIVE); KETONES,URINE (UA) NEGATIVE (NEGATIVE); LEUKOCYTE ESTERASE, URINE SMALL (NEGATIVE); NITRITE,URINE NEGATIVE (NEGATIVE); OCCULT BLOOD,URINE NEGATIVE (NEGATIVE); PROTEIN,URINE NEGATIVE (NEGATIVE); UROBILINOGEN,URINE 0.2 (NORMAL) E.U./dL (NORMAL)
[2023-06-19 15:14] LABS: CLARITY,URINE CLEAR (CLEAR)
[2023-06-19] MEDS: cefTRIAXone 1 GM in SODIUM CHLORIDE 0.9% MINIBAG 100 ML IV STA (15:14)
[2023-06-19 15:46] LABS: BACTERIA,URINE Rare /HPF (None Seen); RBC,URINE 0-5 /HPF (0-5); SQUAMOUS EPITHELIAL CELL,UR NONE SEEN (<= Few)
[2023-06-19] MEDS: AZITHROMYCIN INJ 500 MG in SODIUM CHLORIDE 0.9% 250 ML IV STA (15:55)
[2023-06-19 18:32] LABS: HCT - HEMATOCRIT 19.9 % (42.0-52.0); HGB - HEMOGLOBIN 5.8 g/dL (14.0-18.0)
[2023-06-19 18:56] LABS: CALCIUM 8.7 mg/dL (8.5-10.3); CREATININE 3.7 mg/dL (0.6-1.3)
[2023-06-19] MEDS: DEXTROSE 50% ABBOJECT 25 GM/50 ML SYRINGE IVP STA (19:28)
[2023-06-19] MEDS: INSULIN REGULAR HUMAN 300 UNIT/3 ML VIAL IVP STA (19:28)
[2023-06-19] MEDS: PANTOPRAZOLE 40 MG VIAL IVP STA (23:54)
--- NOTE | 2023-06-20 00:01 | ED Physician Documentation ---
ED Addendum - Addendum Addendum: 06/19/23 23:59 The patient remained stable. He is normotensive since early afternoon. Heart rate has remained in the 70s. He has received 1 unit of blood and is on the second unit currently. He is feeling less dyspneic. We will reassess and consider some Lasix between units of blood with his history of CHF. He is on Eliquis for chronic A-fib. It has not been given today. History of diabetes and his blood sugar is good on early testing. We can recheck it now prior to transport. I did hear from [facility] and talk to the hospitalist Dr. Lees who accepts transfer. He believes the transfer is reasonable given the multisystem problems the patient has in conjunction with the acute anemia and GI bleeding. The patient will be transported by ground ALS. He seems stable at this point and does not appear to need airlift. Disposition: The patient is transferred to acute care hospital in stable condition Diagnoses: 1. Generalized weakness 2. Acute exacerbation of dyspnea 3. GI bleed 4. Severe anemia from blood loss acute 5. History of atrial fibrillation 6. History of chronic anticoagulation 7. History of diabetes 8. Acute on chronic renal failure 9. Infiltrates on x-ray, pneumonia
[2023-06-20 01:47] VITALS: BP 127/60; O2SAT 93
== END 2023-06-20 01:47 | disposition short-term general hospital (02) ==
LOC: ED 11:06
DX: K92.2 Gastrointestinal hemorrhage, unspecified (principal); D62 Acute posthemorrhagic anemia; I48.91 Unspecified atrial fibrillation; J18.9 Pneumonia, unspecified organism; I13.0 Hypertensive heart and chronic kidney disease with heart failure and stage 1 through stage 4 chronic kidney disease, or unspecified chronic kidney disease; E11.22 Type 2 diabetes mellitus with diabetic chronic kidney disease; N18.9 Chronic kidney disease, unspecified; I50.9 Heart failure, unspecified; D63.1 Anemia in chronic kidney disease; E78.00 Pure hypercholesterolemia, unspecified; I25.2 Old myocardial infarction; Z79.01 Long term (current) use of anticoagulants; Z95.1 Presence of aortocoronary bypass graft; Z79.4 Long term (current) use of insulin; Z79.899 Other long term (current) drug therapy; Z79.51 Long term (current) use of inhaled steroids; Z87.891 Personal history of nicotine dependence
CPT/HCPCS: 36415; 36430; 51702; 71046; 80048; 80053; 81001; 82272; 83605; 83690; 83735; 83880; 84132; 84443; 84484; 85014; 85018; 85025; 86850; 86900; 86901; 86920; 87077; 87086; 87181; 87633; 93005; 96365; 96367; 96375; 99285; J1815; P9016; P9040; 81003

== ENCOUNTER 2023-06-26 11:03 | Outpatient (CLI) | payer MEDICARE ==
[2023-06-26 14:58] LABS: BASOPHILS % (AUTO) 0.4 %; EOSINOPHILS # (AUTO) 0.3 10^3/uL (0.0-0.7); EOSINOPHILS % (AUTO) 6.6 %; HCT - HEMATOCRIT 28.2 % (42.0-52.0); LYMPHOCYTES # (AUTO) 1.3 10^3/uL (1.5-3.5); LYMPHOCYTES % (AUTO) 25.6 %; MEAN CORPUSCULAR HEMOGLOBIN 31.4 pg (27.0-31.0); MEAN CORPUSCULAR HGB CONC 28.4 g/dL (32.0-36.0); MEAN CORPUSCULAR VOLUME 110.6 fL (80.0-94.0); MEAN PLATELET VOLUME 10.8 fL (7.4-11.4); MONOCYTES # (AUTO) 0.5 10^3/uL (0.0-1.0); NEUTROPHILS # (AUTO) 2.9 10^3/uL (1.5-6.6); PLT - PLATELET COUNT 163 10^3/uL (130-450); RED BLOOD COUNT 2.55 10^6/uL (4.70-6.10); RED CELL DISTRIBUTION WIDTH 18.8 % (12.0-15.0); WHITE BLOOD COUNT 5.1 x10^3/uL (4.8-10.8)
[2023-06-26 15:06] LABS: SLIDE REVIEW? Indicated
[2023-06-26 16:01] LABS: CALCIUM 8.5 mg/dL (8.5-10.3); CREATININE 2.5 mg/dL (0.6-1.3); POTASSIUM 4.8 mmol/L (3.5-4.5)
[2023-06-26 16:08] LABS: PLATELET ESTIMATE, MANUAL NORMAL (130-450,000) (NORMAL); PLATELET MORPHOLOGY NORMAL APPEARANCE (NORMAL)
[2023-06-26 16:20] LABS: CREATININE,URINE 25.7 mg/dL; MICROALBUM/CREATININE RATIO,UR 54.5 ug/mg (<30.0); MICROALBUMIN,URINE 1.4 mg/dL
[2023-06-26 21:57] LABS: ESTIMATED AVERAGE GLUCOSE 77 mg/dL (70-100); HEMOGLOBIN A1c% 4.3 % (4.27-6.07)
== END 2023-06-26 11:04 | disposition home or self-care (01) ==
LOC: LAB.S 11:03
PROVIDERS: ATTEND Registered Nurse
DX: E10.51 Type 1 diabetes mellitus with diabetic peripheral angiopathy without gangrene (principal); Z13.0 Encounter for screening for diseases of the blood and blood-forming organs and certain disorders involving the immune mechanism; E10.22 Type 1 diabetes mellitus with diabetic chronic kidney disease; N18.9 Chronic kidney disease, unspecified; D64.9 Anemia, unspecified
CPT/HCPCS: 36415; 80048; 82043; 82570; 82728; 83036; 83540; 84466; 85025

== ENCOUNTER 2023-07-23 09:32 | Outpatient (CLI) | payer MEDICARE | END 2023-07-23 09:33 | disposition E | LOC: EMS 09:32 ==